=== PATIENT | male | born 1935 | race Caucasian/White ===

== ENCOUNTER → 2019-05-20 14:48 | Outpatient (CLI) | payer MEDICARE, SELFPAY ==
--- NOTE | 2019-05-20 14:51 | CT_ITS ---
STUDY: CT ABDOMEN AND PELVIS WITH AND WITHOUT CONTRAST REASON FOR EXAM: Male, 83 years old. GROSS HEMATURIA 2 WEEKS AGO, STOPPED 1 WEEK AGO. SX/ ULCER SX 1967, APPY. H/O LEUKEMIA RADIATION DOSAGE (If Supplied By Facility): CTDIvol = ( 19.88 ) mGy, DLP = ( 2605.77 ) mGycm TECHNIQUE: Transaxial images were obtained from the dome of the diaphragm to the symphysis pubis without oral contrast. 100 ML ISOVUE 300. was administered. Sagittal and coronal images were reconstructed. Individualized dose optimization techniques were used for this CT. COMPARISON: None. FINDINGS: The visualized lung bases are unremarkable. The visualized portions of the heart are within normal limits. 4 cm round masses of decreased attenuation the posterior segment the right lower lobe which demonstrates peripheral globular enhancement consistent with a hemangioma. Normal gallbladder and extrahepatic biliary system. Normal spleen. Normal pancreas. Normal bilateral adrenal glands. 2 cm solid enhancing mass in the midsection the right kidney worrisome for renal cell carcinoma. No evidence of tumor thrombus within the right renal vein or inferior vena cava. No surrounding lymphadenopathy. Normal left kidney. Normal visualized stomach. Normal small intestine. Normal colon. There is non-visualization of the appendix. Normal abdominal aorta. There is an IVC filter in place. Right external iliac lymphadenopathy measuring 1.3 x 2.3 cm. Tiny amount of free fluid in the pelvis which is abnormal male patient but without obvious etiology. Normal urinary bladder. Normal abdominal wall. Mild dextroscoliosis of the thoracolumbar spine with degenerative disc disease. CT/CT Abd/Pelvis W/WO Contrast IMPRESSION: 1. 2 cm exophytic solid enhancing mass the right kidney worrisome for renal cell carcinoma. 2. 1.3 x 2.3 cm right external iliac lymphadenopathy. Metastatic disease cannot be excluded. 3. Tiny amount of free fluid in the pelvis which is abnormal male patient but without obvious etiology. 4. 4 cm hemangioma the posterior segment right lobe liver. Electronically Signed: Neno Cueva MD at 8:51 EST Tel , Service support ,
[2019-05-20 15:06] LABS: CREATININE FINGERSTICK 0.9 mg/dL (0.70-1.30); EGFR FINGERSTICK > 60.0000 mL/min (>60)
== END ==
PROVIDERS: Family Provider Family Medicine; PCP Family Medicine; Referring Provider Nurse Practitioner Adult Health; Visit Provider Nurse Practitioner Adult Health
DX: R31.0 Gross hematuria (principal)
CPT/HCPCS: 74178; Q9967

== ENCOUNTER 2019-06-14 08:31 | Day surgery (SDC) | payer MEDICARE, SELFPAY ==
[2019-06-10 14:29] VITALS: BP 173/89; PULSE 81; RESP 16; TEMP 37.1; O2SAT 98; BMI 26.7
--- NOTE | 2019-06-10 14:54 | SDCEKG_ITS ---
Test Reason : Blood Pressure : / mmHG Vent. Rate : 085 BPM Atrial Rate : 085 BPM P-R Int : 190 ms QRS Dur : 084 ms QT Int : 378 ms P-R-T Axes : 046 019 044 degrees QTc Int : 449 ms Normal sinus rhythm Normal ECG Confirmed by NADIA SHELBY, ANA ([id number]), photographic editor JOAO HERNDON ([id number]) on 06/13/2019 9:08:13 AM Referred By: Immanuel Panda Confirmed By:ANA ZUNIGA MD
[2019-06-10 15:26] LABS: Hematocrit 39.2 % (40-54); Hemoglobin 12.9 g/dL (13.0-16.5); Mean Corp Hgb Conc 32.9 g/dL (32-36); Mean Corpuscular Volume 94.2 fL (80-94); Platelet Count 292 K/mm3 (150-450); RBC Distribution Width CV 13.7 % (11.6-14.6); RBC Distribution Width SD 47.5 fl (35.1-43.9); Red Blood Count 4.16 M/mm3 (4.6-6.2); White Blood Count 6.7 K/mm3 (4.4-11.0)
[2019-06-10 15:55] LABS: Anion Gap 7 (5-15); BUN 10 mg/dL (7-18); BUN/Creat Ratio 10.1 RATIO (10-20); Calcium,Total 8.9 mg/dL (8.5-10.1); Chloride 103 mmol/L (98-107); Creatinine, Serum 0.99 mg/dL (0.70-1.30); EST Glomerular Filtration Rate 77 mL/min (>60); Est Glom Filt Rate - Afr Amer 93 mL/min (>60); Estimated Creatinine Clearance 57.53 ml/min; Glucose 115 mg/dL (74-106); Potassium 3.7 mmol/L (3.5-5.1); Sodium Level 135 mmol/L (136-145)
[2019-06-14 09:37] VITALS: BP 161/79; PULSE 90; RESP 16; TEMP 37.1; O2SAT 99; BMI 26.3
[2019-06-14] MEDS: Lactated Ringers 1,000 ML 100 ML IV (09:51)
--- NOTE | 2019-06-14 09:58 | DCINST_ITS ---
Discharge Diet: Light diet - advance as tolerated Discharge Activity: Return to Normal Activity Call your doctor if your incision/area has: Continuous Slow Oozing, Sudden Increased Bleeding, Increased Pain/ Swelling, Increased Redness, Foul Smelling Discharge, Swelling at the incision site Instructions: Treating Bladder Cancer: TUR (Transurethral Resection) Allergies/Adverse Reactions: Allergies paroxetine [From Paxil] Allergy (Verified 06/10/19 14:12) Other CARDIAC ARRHYTHMIA Medications to take at Discharge Aspirin E.C. [Ecotrin] 81 mg PO DAILY@0800 06/10/19 Cholecalciferol (Vitamin D3) [Vitamin D3] 25 mcg PO DAILY 06/10/19 Cyanocobalamin (Vitamin B-12) [Cyanocobalamin Injection] 1,000 mcg IJ .Q2MO 06/10/19 Famotidine [Pepcid AC] 20 mg PO BID 06/10/19 Hydrochlorothiazide [Hctz] 12.5 mg PO DAILY 06/10/19 Hydrocortisone [Procto-Med Hc] 30 gm VT BID 06/10/19 Imatinib Mesylate 400 mg PO DAILY 06/10/19 Lorazepam 1 mg PO Q6H PRN PRN 06/10/19 Propranolol HCl [Inderal] 10 mg PO DAILY 06/10/19 Verapamil HCl [Verapamil ER] 240 mg PO DAILY 06/10/19 Ciprofloxacin [Cipro] 500 mg PO BID #6 tab 06/14/19 Hydrocodone/Acetaminophen [[place] 5-325 Tablet] 1 each PO Q4H PRN PRN 5 Days #14 tablet 06/14/19 The following prescriptions were given: Ciprofloxacin [Cipro] 500 mg PO BID #6 tab Transmission Status: Pending to [facility] Hydrocodone/Acetaminophen [[place] 5-325 Tablet] 1 each PO Q4H PRN PRN 5 Days #14 tablet PRN Reason: Pain Score 1-10/10 Transmission Status: Sent to [facility] Primary Care Physician: Alok Branch MD [Primary Care Provider] - Test Results: Test results from this visit will be discussed in further detail at your follow- up appointment, if applicable. Please Follow Up With: Immanuel Panda MD When: in 2 weeks, please call to make an appointment.
[2019-06-14] MEDS: Cefazolin 2 GM in 0.9% Normal Saline 100 ML IV (10:18)
--- NOTE | 2019-06-14 10:25 | BLB_PTH ---
PATIENT: ABHISHEK BAILEY LOC: [facility] [place] U#:[id number] AGE/SX: 83/M ROOM: RE06/14/[address]: Dr. Immanuel Panda MD : [id number] BED: DIS: 06/14/2019 SPEC #: [id number] RECD: 06/14/19 12:07 STATUS: DAYNA ALFRED #: [id number] SHANDA: 06/14/19 10:[address]: Immanuel Panda DEPT: SURGICAL PATHOLOGY RECD BY: Ortiz Brown ENTERED: 06/14/19 13:44 SP TYPE: TURB OTHR DR: Dr. Alok Branch MD Tissues: Urinary bladder, NOS Procedures: Surgery Specimen Level V HEADER OPERATION: Cysto, TUR, bladder tumor, mitomycin C PRE-OP DIAGNOSIS: History bladder cancer TISSUE SUBMITTED: Bladder tumor MICROSCOPIC DIAGNOSIS Urinary bladder tumor, transurethral resection: Papillary urothelial carcinoma. See cancer checklist below. AM:albina 06/17/19 COMMENT BLADDER CANCER (TUR) SUMMARY Procedure: Transurethral resection of bladder (TURBT) Tumor site: Not specified Histologic type: Papillary urothelial carcinoma Histologic grade: 2/3 (WHO high grade) Tumor configuration: Papillary Muscularis propria: Present and free of tumor. Lymphovascular invasion: Not identified Tumor extension: Tumor confined to urothelium. Additional pathologic findings: Mild chronic inflammation. The above summary is in compliance with [employer] [place] Pathology (CAP) Cancer Protocols Checklist and [place] Joint Committee on Cancer (AJCC), Staging Manual, 8th Ed. Case has been reviewed in consultation with Dr. Engle who concurs with the above diagnosis. RAA:SARA MICROSCOPIC DESCRIPTION Slides are reviewed. GROSS DESCRIPTION Received in fixative is one container labeled with the patient's name and designated bladder tumor. The specimen consists of multiple irregular fragments of light almodovar soft tissue that in aggregate measure 1 x 0.3 x 0.1 cm. The specimen is totally submitted in one cassette. / SARA:albina 06/14/19 TC:0 CPT: 88801
--- NOTE | 2019-06-14 10:48 | OP.PCM_ITS ---
Report of Operation Date of Procedure: 06/14/19 Pre-Operative Diagnosis: Bladder tumor 2 cm in the dome of the bladder Post-Operative Diagnosis: Same Surgery/Procedure Performed:: Transurethral resection of a bladder tumor 2 cm in the dome and instillation of mitomycin-C in the bladder Description of Surgical Findings:: 83-year-old male who was seen in the office for hematuria on cystoscopy was found to have a tumor in the dome of the bladder appeared to be papillary noninvasive bladder cancer today working to proceed with resection the tumor about 2 cm in the dome of the bladder. 83-year-old male was taken back to the operating room after smooth induction of anesthesia he was placed in dorsolithotomy position, the penis and testicles were prepped and draped in usual sterile fashion went into the urethra with a 24 Bulgarian noncontinuous flow resectoscope the entire length the urethra was normal the pendulous urethra is normal the prostate was slightly enlarged no significant obstruction inside the bladder the left and right ureteral orifice and trigone was identified this was normal the lateral carson were normal the posterior wall was normal and then up in the dome there was a 2 cm papillary noninvasive looking bladder cancer. I then used a medium loop resectoscope and resected the tumor I then switched over to the button to vaporize the base and vaporized the edges and cauterize extensively after this was done and there was no bleeding I then drained the bladder with a catheter bladder instilled 40 cc of 40 mg of mitomycin-C into the bladder for post resection dose. Patient anesthetic was reversed taken back to PACU good condition he will follow-up in 2 weeks to review the pathology. Type of Anesthesia:: General - Admit VTE Documentation VTE Present on Admission: No
[2019-06-14 10:58] VITALS: BP 138/78; BP 161/79; PULSE 89; RESP 16; TEMP 36.3; O2SAT 95
[2019-06-14 11:10] VITALS: BP 145/79; BP 161/79; PULSE 91; RESP 18; O2SAT 97
[2019-06-14 11:15] VITALS: BP 156/91; BP 161/79; PULSE 92; RESP 18; O2SAT 98
[2019-06-14 11:23] VITALS: BP 161/79; BP 171/88; PULSE 90; RESP 16; TEMP 36.4; O2SAT 98
[2019-06-14 12:39] VITALS: BP 149/87; BP 161/79; PULSE 64; RESP 16; TEMP 36.6; O2SAT 99
== END 2019-06-14 12:43 | disposition home or self-care (01) ==
LOC: SDC 08:37 → AC 08:38
PROVIDERS: Anesthesiology; Family Provider Family Medicine; PCP Family Medicine; Referring Provider Urology; Visit Provider Urology
PROC: 0TBB8ZZ Excision of Bladder, Via Natural or Artificial Opening Endoscopic (ICD-10-PCS; CPT 51720; principal; 2019-06-14 10:15)
DX: C67.9 Malignant neoplasm of bladder, unspecified (principal); N40.0 Benign prostatic hyperplasia without lower urinary tract symptoms; R31.0 Gross hematuria; D18.03 Hemangioma of intra-abdominal structures; I10 Essential (primary) hypertension; E78.5 Hyperlipidemia, unspecified; I48.91 Unspecified atrial fibrillation; C95.91 Leukemia, unspecified, in remission; Z87.891 Personal history of nicotine dependence; Z86.718 Personal history of other venous thrombosis and embolism
CPT/HCPCS: 00912; 51720; 52235; 36415; 80048; 85027; 88307; 93005; J7120; J2405; J3490; J9280

== ENCOUNTER 2019-10-11 10:02 | Inpatient (IN) | payer MEDICARE, SELFPAY ==
[2019-10-11] VITALS (8 sets, daily range): BP systolic 116–185; BP diastolic 50–82; PULSE 93–103; RESP 15–33; TEMP 36.2–37.2; O2SAT 92–98; BMI 27.1; BMI 27.4; BMI 27.5
--- NOTE | 2019-10-11 10:18 | EKG12_ITS ---
Test Reason : ILLNESS Blood Pressure : / mmHG Vent. Rate : 096 BPM Atrial Rate : 096 BPM P-R Int : 184 ms QRS Dur : 088 ms QT Int : 372 ms P-R-T Axes : 033 007 010 degrees QTc Int : 469 ms Normal sinus rhythm Normal ECG Confirmed by JING SHELBY, BRII ([id number]), multimedia editor FLORIAN SHAFFER ([id number]) on 10/15/2019 3:14:04 PM Referred By: MONIKA Confirmed By:ROSANNA CH MD
--- NOTE | 2019-10-11 10:20 | ED.VIS.GEN ---
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 Patient states that he started the medication about 2 weeks ago. He is under the care of Dr. Geronimo. He states that since starting the medication, he is just had some generalized malaise. Over the past 3 days, he describes more shortness of breath. He states that he has some stomach fullness and pain when he takes of breath. He does describe some chills, but does not think he has had fever. The patient did have prior DVT after knee surgery many years ago. He is currently not on anticoagulants. He denies weight gain or increasing edema. He denies any changes in his stools, dark or tarry stools. Prior similar symptoms: No Recent Illness/Hospitalization: No Past Medical History - Allergies and Home Meds Allergies/Adverse Reactions: Allergies paroxetine [From Paxil] Allergy (Verified 10/11/19 10:03) Other CARDIAC ARRHYTHMIA Primary Care Physician: Alok Branch MD [Primary Care Provider] - Prior records reviewed: Yes Past Medical History: - - CML, A. fib, prostate cancer, hypertension, GERD Surgical History: appendectomy Smoking Status: Former smoker Review of Systems General: Reports: Chills, Malaise Eyes: Denies: Visual changes - bilaterally, Diplopia ENT: Denies: Rhinorrhea, Sore throat Cardiovascular: Denies: Chest pain, Palpitations Respiratory: Reports: Dyspnea, Cough Gastrointestinal: Reports: Nausea Genitourinary: Denies: Dysuria, Hematuria, Frequency Musculoskeletal: Denies: Back pain, Extremity Pain Skin: Denies: Rash, Wounds Neurological: Denies: Headache, Weakness, Numbness Physical Exam Vital Signs/Narrative: Vital Signs Temp Pulse Resp BP Pulse Ox 10/11/19 10:03 97.2 F L 103 H 15 185/82 H 95 Inital Vital Signs reviewed: Yes General: Well nourished, Well developed, No Acute Distress Head: Normocephalic, Atraumatic Eyes: Perrl, EOMI ENT: Moist mucous membranes, No rhinorrhea Neck: Supple, Nontender Cardiovascular: Regular rate, Regular rhythm, No murmurs Respiratory: No distress, Chest nontender, Decreased Air Movement Abdomen: Soft, Nontender, Nondistended, Normal bowel sounds Back: Nontender, Normal Inspection Extremities: Nontender, No edema Skin: Normal color, No rash Neurological: Alert, Oriented x3, Cranial nerves II-XII grossly intact, Normal Strength, Normal Sensation Psychological: Normal affect, Normal Mood Diagnostic/Tx/Re-eval Clinical Impression(s) from Imaging Studies Chest CTA 10/11/19 11:34 IMPRESSION: Moderate bilateral pleural effusions with compressive atelectasis versus infiltrates in both lower lobes. Focal area of groundglass appearance in the lingular segment of the left upper lobe as well as in the left lower lobe. No evidence of pulmonary embolism. Electronically Signed: Sherwin Agnieszka, at 12:21 EDT , Service support , Abnormal Lab Results 10/11/19 10/11/19 10/11/19 10:30 11:00 11:00 WBC 6.5 RBC 2.97 L Hgb 9.9 L Hct 28.9 L MCV 97.3 H MCH 33.3 H MCHC 34.3 RDW Std Deviation 46.5 H RDW Coeff of Jessica 13.1 Plt Count 273 MPV 9.2 Immature Gran % (Auto) 0.300 Neut % (Auto) 68.4 Lymph % (Auto) 17.1 L Crawford % (Auto) 13.4 H Eos % (Auto) 0.6 Baso % (Auto) 0.2 Absolute Neuts (auto) 4.5 Absolute Lymphs (auto) 1.11 Nucleated RBC % 0 Sodium 132 L Potassium 3.6 Chloride 101 Carbon Dioxide 25.0 Anion Gap 6 BUN 9 Creatinine 0.76 Estim Creat Clear Calc 55.97 Est GFR (MDRD) Af Amer 125 Est GFR (MDRD) Non-Af 103 BUN/Creatinine Ratio 11.8 Glucose 119 H Calcium 8.4 L Total Bilirubin 1.40 H AST 17 ALT 21 Alkaline Phosphatase 65 Troponin I < 0.015 B-Natriuretic Peptide Total Protein 6.7 Albumin 2.9 L Globulin 3.8 Albumin/Globulin Ratio 0.8 L Lipase 58 L COVID-19 ([facility]) Cancelled Blood Type Antibody Screen 10/11/19 10/11/19 11:00 11:00 WBC RBC Hgb Hct MCV MCH MCHC RDW Std Deviation RDW Coeff of Jessica Plt Count MPV Immature Gran % (Auto) Neut % (Auto) Lymph % (Auto) Crawford % (Auto) Eos % (Auto) Baso % (Auto) Absolute Neuts (auto) Absolute Lymphs (auto) Nucleated RBC % Sodium Potassium Chloride Carbon Dioxide Anion Gap BUN Creatinine Estim Creat Clear Calc Est GFR (MDRD) Af Amer Est GFR (MDRD) Non-Af BUN/Creatinine Ratio Glucose Calcium Total Bilirubin AST ALT Alkaline Phosphatase Troponin I B-Natriuretic Peptide 231.2 H Total Protein Albumin Globulin Albumin/Globulin Ratio Lipase COVID-19 ([facility]) Blood Type A POSITIVE Antibody Screen NEGATIVE - Rhythm Strip Rhythm Strip: Sinus Rhythm Rate: 90 Ectopy: None - EKG Initial EKG Interpretation: Sinus Rhythm, No Acute Injury Pattern Prior: Unchanged - Medical Decision Making Patient presents to the emergency department with increasing dyspnea. In review of his new medication, it can cause pancreatitis, anemia, and volume overload. He has not had fever but does admit to chills. With his history of immunosuppression and respiratory complaints, COVID-19 testing was obtained. Screening labs are relatively unremarkable. Cardiac enzymes were negative. EKG shows sinus rhythm with QTC of 470. His BNP is also elevated. Patient underwent CTA which shows no evidence of pulmonary embolus but does show patchy diffuse infiltrates and large pleural effusions. I have discussed the case with Dr. Persaud, on-call for oncology. He did agree with plan for admission, antibiotic coverage, and diuresis. Patient was also discussed with the hospitalist and will be admitted at this time. Impression 1. Acute dyspnea 2. Pleural effusions 3. Atypical pneumonia 4. Acute volume overload 5. History of CML 6. COVID-19 suspicion ED Disposition - Plan for ED Patient: Referrals: Alok Branch MD [Primary Care Provider] -
[2019-10-11 11:12] LABS: Absolute Lymphocyte Count 1.11 X10^3/uL (0.83-4.51); Absolute Neutrophil Count 4.5 X10^3/uL (2.0-7.7); Basophil# 0.01 X10^3/uL; Basophil% 0.2 % (0-1); Eosinophil# 0.04 X10^3/uL; Eosinophils% 0.6 % (0-5); Hematocrit 28.9 % (40-54); Hemoglobin 9.9 g/dL (13.0-16.5); Lymphocyte # 1.11 X10^3/ul (4.0); Lymphocyte % 17.1 % (19-41); Mean Corp Hgb Conc 34.3 g/dL (32-36); Mean Corpuscular Hgb 33.3 pg (27.0-32.0); Mean Corpuscular Volume 97.3 fL (80-94); Mean Platelet Vol. 9.2 fl (6.2-12.0); Monocyte# 0.87 X10^3/uL; Monocyte% 13.4 % (0-10); NRBC Flagged by Analyzer 0 % (0-5); Neutrophil # 4.46 X10^3/uL (2.7-7.7); Neutrophil % 68.4 % (47-70); Platelet Count 273 K/mm3 (150-450); RBC Distribution Width CV 13.1 % (11.6-14.6); RBC Distribution Width SD 46.5 fl (35.1-43.9); Red Blood Count 2.97 M/mm3 (4.6-6.2); White Blood Count 6.5 K/mm3 (4.4-11.0)
[2019-10-11 11:30] LABS: ALB/GLOB Ratio 0.8 RATIO (0.9-2.4); AST(SGOT) 17 U/L (15-37); Alanine Aminotransfer ALT/SGPT 21 U/L (16-61); Albumin, Serum 2.9 g/dL (3.2-5.0); Alkaline Phosphatase 65 U/L (45-117); Anion Gap 6 (5-15); BUN 9 mg/dL (7-18); BUN/Creat Ratio 11.8 RATIO (10-20); Calcium,Total 8.4 mg/dL (8.5-10.1); Chloride 101 mmol/L (98-107); Creatinine, Serum 0.76 mg/dL (0.70-1.30); EST Glomerular Filtration Rate 103 mL/min (>60); Est Glom Filt Rate - Afr Amer 125 mL/min (>60); Estimated Creatinine Clearance 55.97 ml/min; Globulin 3.8 g/dL (2.2-4.2); Glucose 119 mg/dL (74-106); Lipase 58 U/L (73-393); Potassium 3.6 mmol/L (3.5-5.1); Protein, Total 6.7 g/dL (6.4-8.2); Sodium Level 132 mmol/L (136-145)
--- NOTE | 2019-10-11 11:34 | CT_ITS ---
STUDY: CTA CHEST REASON FOR EXAM: Male, 84 years old. SOB/COUGH /FEVER x 3 to 4 days RADIATION DOSAGE (If Supplied By Facility): CTDIvol = ( 18.24 ) mGy, DLP = ( 547.31 ) mGycm TECHNIQUE: The examination was performed with the intravenous administration of 100ml ISOVUE 370. Post-processing of the angiographic images was performed, with multiplanar reformation and 3D reconstruction. Individualized dose optimization techniques were used for this CT. COMPARISON: None. FINDINGS: Normal enhancement of the main pulmonary artery and right and left pulmonary arteries. Normal enhancement of the bilateral peripheral pulmonary arteries. There is no demonstrated pulmonary embolism. There is atherosclerotic calcification of the aortic arch with tortuosity. There is no demonstrated aortic dissection. There are calcifications of the coronary arteries. There is cardiomegaly. Mild degree of pericardial thickening. There are visualized mediastinal lymph nodes, which are within normal size limits, and with normal morphology. There are calcified right hilar lymph nodes. Normal visualized trachea and bronchi. The lungs are well expanded. Moderate degree of bilateral pleural effusions with bibasilar compressive atelectasis and/or infiltrates. Patchy focal air of the groundglass appearance in the lingular segment of the left upper lobe as well as in the left upper lobe and left lower. Normal chest wall structures. There are degenerative changes of thoracic spine. A filter is seen in the inferior vena cava. CT/CTA Chest W/WO Contrast IMPRESSION: Moderate bilateral pleural effusions with compressive atelectasis versus infiltrates in both lower lobes. Focal area of groundglass appearance in the lingular segment of the left upper lobe as well as in the left lower lobe. No evidence of pulmonary embolism. Electronically Signed: Sherwin Aaron, at 12:21 EDT , Service support ,
[2019-10-11 12:12] LABS: BNP,B-Type NATRIURETIC PEPTIDE 231.2 pg/mL (0-100)
[2019-10-11] MEDS: Furosemide 40 MG/4 ML Vial IV ×2 (13:07→21:39)
[2019-10-11] MEDS: Ceftriaxone 1 GM/50 ML BAG IV (13:07)
--- NOTE | 2019-10-11 13:09 | HP.PCM_ITS ---
Problem List (1) HTN (hypertension) Status: Chronic Qualifiers: Hypertension type: essential hypertension Qualified Code(s): I10 - Essential (primary) hypertension (2) Hx of venous thrombosis and embolism Status: Chronic (3) History of tobacco use Status: Chronic (4) Atrial fibrillation Status: Chronic Qualifiers: Atrial fibrillation type: unspecified Qualified Code(s): I48.91 - Unspecified atrial fibrillation History of Present Illness Date of Admission: 10/11/19 Chief Complaint: Shortness of breath - 3 days The patient is a 84 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 Patient denied any sick contact. He lives alone with his . Denies any fever or chills. Complains of worsening shortness of breath with cough as well as generalized malaise. He denies any orthopnea or PND but admits to lower extremity swelling. In the ED showed temperature 97.2 F, heart rate 103, blood pressure 185/82, patient rate 15, SPO2 is 95% on room air. BC count is 6.5, hemoglobin 9.9, up from 12.9, count is 273, sodium 132, potassium 3.6, chloride 101, bicarbonate 25, BUN 9, creatinine 0.76, magnesium is pending, ferritin is pending, troponin is negative, LFTs are unremarkable except for today bilirubin of 1.40, BNP of is 231.2, CRP pending, procalcitonin is pending. CT of the chest shows moderate bilateral pleural effusion with compressive atelectasis versus infiltrates in both lower lobes. Focal area of groundglass appearance in the lingular segment of the left upper lobe as well as in the left lower lobe. No evidence of PE Past Medical History Past Medical History (Chronic Problems): Chronic Problems Hx of peptic ulcer (Chronic) HTN (hypertension) (Chronic) Hx of venous thrombosis and embolism (Chronic) History of tobacco use (Chronic) Atrial fibrillation (Chronic) Allergies paroxetine [From Paxil] Allergy (Verified 10/11/19 10:03) Other CARDIAC ARRHYTHMIA Home Medications: Ambulatory Orders Medication Instructions Recorded Aspirin E.C. [Ecotrin] 81 mg PO DAILY@0800 06/10/19 Cholecalciferol (Vitamin D3) 25 mcg PO DAILY 06/10/19 [Vitamin D3] Cyanocobalamin (Vitamin B-12) 1,000 mcg IJ .Q2MO 06/10/19 [Cyanocobalamin Injection] Famotidine [Pepcid AC] 20 mg PO BID 06/10/19 Hydrochlorothiazide [Hctz] 12.5 mg PO DAILY 06/10/19 Hydrocortisone [Procto-Med Hc] 30 gm NM BID 06/10/19 Imatinib Mesylate 400 mg PO DAILY 06/10/19 Lorazepam 0.5 mg PO Q6H PRN PRN 06/10/19 Propranolol HCl [Inderal (Beta 10 mg PO DAILY 06/10/19 Chauncey)] Verapamil HCl [Verapamil ER] 240 mg PO DAILY 06/10/19 Ciprofloxacin [Cipro] 500 mg PO BID #6 tab 06/14/19 Nilotinib HCl [Tasigna] 300 mg PO DAILY 10/11/19 Polyethylene Glycol 3350 [Miralax] 17 gm PO QODAY 10/11/19 Surgical History: appendectomy, herniorrhaphy, - - Status post abdominal surgery for peptic ulcer disease, status post bladder tomorrow removal in May 2019 Psychiatric History: No pertinent psych hx Lives: Spouse/ Significant Other Smoking Status: Former smoker Tobacco Use: Non-smoker Alcohol: None Drugs: None - *Family History Maternal History Items: No pertinent history Paternal History Items: Heart Disease Review of Systems Constitutional: Reports: Malaise, Weakness, Fatigue. Denies: Anorexia, Chills, Fever, Weight Change Eyes: Denies: Blurred vision, Cataracts, Conjunctivae Inflammation, Pain, Redness HEENT: Denies: Difficulty Hearing, Difficulty Swallowing, Head Aches, Hearing Changes, Sinus Congestion, Sinus Drainage Cardiovascular: Reports: Chest Tightness, Edema. Denies: Chest Pain, Claudication, Orthopnea, Palpitations, Paroxysmal Noc. Dyspnea Respiratory: Reports: Shortness of Breath, Shortness of breath upon exertion. Denies: Cough, Pleuritic Pain, Shortness of breath at rest, Sputum production Gastrointestinal: Denies: Abdominal Pain, Hematemesis, Hematochezia, Nausea, Vomiting Genitourinary: Denies: Dysuria, Incontinence Musculoskeletal: Denies: Joint Pain, Joint stiffness, Joint swelling, Joint Tenderness Skin: Denies: Rash, Wounds Neurological: Denies: Difficulty swallowing, Focal weakness, Numbness, Tingling Psychiatric: Denies: Anxiety, Depression, Homicidal Ideations, Suicidal Ideations Hematologic/ Lymphatic: Denies: Easy Bruising, Easy Bleeding VTE Information - Inpt Only VTE Present on Admission: No VTE Pharm Prophylaxis ordered?: Yes Patient Problems: Active and Suspected Problems Dyspnea (Acute) - Physical Exam Vitals/I&O's: Vital Signs Temp Pulse Resp BP Pulse Ox 97.8 F 97 20 H 163/79 H 92 10/11/19 12:15 10/11/19 12:15 10/11/19 12:15 10/11/19 12:15 10/11/19 12:15 Oxygen Delivery Method Room Air Weight: 83.461 kg Body Mass Index (BMI) 27.1 Intake and Output for Last 24 Hours 10/09/19 10/10/19 10/11/19 23:59 23:59 23:59 Intake Total 500 / 500 Balance 500 / 500 General: Alert, Oriented x3, Cooperative, No apparent distress HEENT: Atraumatic, PERRLA, EOMI, Normocephalic Oral: Moist Mucosa Neck: Supple Lungs: Clear to auscultation Cardiovascular: Regular rate, Regular Rhythm, Normal S1, Normal S2, No murmurs Abdomen: Bowel Sounds Present, Soft, Non Tender Extremities: No edema Skin: No rashes Musculoskeletal: No Tenderness to Palpation of Joints or Extremities Lymphatic: No Cervical, Supraclavicular, or Inguinal Adenopathy Neurological: Cranial nerves II-XII grossly intact, Neuro grossly intact Psych/Mental Status: Normal Affect, Appropriate Laboratory Results 10/11/19 10:30: COVID-19 ([facility]) Cancelled 10/11/19 11:00: WBC 6.5, RBC 2.97 L, Hgb 9.9 L, Hct 28.9 L, MCV 97.3 H, MCH 33.3 H, MCHC 34.3, RDW Std Deviation 46.5 H, RDW Coeff of Jessica 13.1, Plt Count 273, MPV 9.2, Immature Gran % (Auto) 0.300, Neut % (Auto) 68.4, Lymph % (Auto) 17.1 L , [place] % (Auto) 13.4 H, Eos % (Auto) 0.6, Baso % (Auto) 0.2, Absolute Neuts (auto) 4.5, Absolute Lymphs (auto) 1.11, Nucleated RBC % 0 05/15/20 11:00: Sodium 132 L, Potassium 3.6, Chloride 101, Carbon Dioxide 25.0, Anion Gap 6, BUN 9, Creatinine 0.76, Estim Creat Clear Calc 55.97, Est GFR (MDRD) Af Amer 125, Est GFR (MDRD) Non-Af 103, BUN/Creatinine Ratio 11.8, Glucose 119 H, Calcium 8.4 L, Total Bilirubin 1.40 H, AST 17, ALT 21, Alkaline Phosphatase 65, Troponin I < 0.015, Total Protein 6.7, Albumin 2.9 L, Globulin 3.8, Albumin/Globulin Ratio 0.8 L, Lipase 58 L 10/11/19 11:00: B-Natriuretic Peptide 231.2 H 10/11/19 11:00: Blood Type A POSITIVE, Antibody Screen NEGATIVE Current Medications Doxycycline Hyclate 100 mg/ (Dextrose) 260 mls @ 250 mls/hr IV X1 ONE Stop: 10/11/19 13:36 Assessment/Plan All Active Problems Dyspnea (Acute) 84 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 1. Acute hypoxic respiratory insufficiency secondary to bilateral pleural effusion/possible CHF/possible COVID-19 infection Initial COVID-19 infection is negative Oxygen, wean off for SPO2 more than 94% Not in acute exacerbation; will continue with prn breathing treatments, continue on oxygen Repeat COVID?19 infection in am 2. Bilateral pleural effusion likely secondary to possible CHF likely secondary to Tasigna side effects Patient's BnPep however is 231.2, started on IV Lasix in the ED Will continue on Lasix IV twice daily, strict I & Os Pulmonology consult 3. Elevated D-dimer, 3.37 CTA chest is negative for acute PE Will start on therapeutic Lovenox Will get doppler USG of legs If negative and COVID-19 repeat test is negative, will stop Lovenox 4. Left upper and lower lobe pneumonia, Started on IV ceftriaxone 1g daily, doxycycline 100mg BID Will get urine legionella and streptococcal antigen 5. CML, on Nilotinib Will hold Nilotinib 6. Paroxysmal atrial fibrillation, in NSR On Verapamil 7. Recent h/o bladder tumor, s/p resection 8. DVT PPx- on therapeutic Lovenox 9. Code status - DNR-CCA, no intubation - patient has a living will Inpatient E&M: 63145 Init Hosp L3
--- NOTE | 2019-10-11 14:18 | NURSING ---
ICU 6
--- NOTE | 2019-10-11 16:30 | CON.PCM_ITS ---
Problem List (1) Dyspnea Status: Acute Reason for Consult: suspected covid Consulted by: Dr. Flores History of Present Illness: The patient is a 84 year old M with CML, pt of Dr. Medina. Changed from gleevec to tasigna about 2-3 weeks ago. Some increased fatigue the past few days with dyspnea on exertion. Over past 2 days, worsened dyspnea, cough at night, mild aches in legs. Did not have to sleep upright. No sick contacts, lives with w maida who has been healthy, they have been masking when going out. No fever, no taste/smell change, no n/v/d. No chest pain. Came to ED after calling oncology office. Started on ceftriaxone/doxy, covid neg, admitted to isolation unit. Full ROS performed and neg except as noted above. - Medical History Past Medical History (Chronic Problems): Chronic Problems Hx of peptic ulcer (Chronic) HTN (hypertension) (Chronic) Hx of venous thrombosis and embolism (Chronic) History of tobacco use (Chronic) Atrial fibrillation (Chronic) Allergies/Adverse Reactions: Allergies paroxetine [From Paxil] Allergy (Verified 10/11/19 10:03) Other CARDIAC ARRHYTHMIA Home Medications: Ambulatory Orders Medication Instructions Recorded Aspirin E.C. [Ecotrin] 81 mg PO DAILY@0800 06/10/19 Cholecalciferol (Vitamin D3) 25 mcg PO DAILY 06/10/19 [Vitamin D3] Cyanocobalamin (Vitamin B-12) 1,000 mcg IJ .Q2MO 06/10/19 [Cyanocobalamin Injection] Famotidine [Pepcid AC] 20 mg PO BID 06/10/19 Hydrochlorothiazide [Hctz] 12.5 mg PO DAILY 06/10/19 Hydrocortisone [Procto-Med Hc] 30 gm TX BID 06/10/19 Imatinib Mesylate 400 mg PO DAILY 06/10/19 Lorazepam 0.5 mg PO Q6H PRN PRN 06/10/19 Propranolol HCl [Inderal (Beta 10 mg PO DAILY 06/10/19 Chauncey)] Verapamil HCl [Verapamil ER] 240 mg PO DAILY 06/10/19 Ciprofloxacin [Cipro] 500 mg PO BID #6 tab 06/14/19 Nilotinib HCl [Tasigna] 300 mg PO DAILY 10/11/19 Polyethylene Glycol 3350 [Miralax] 17 gm PO QODAY 10/11/19 - Social History SMOKING STATUS:: Former smoker Vital Signs Temp Pulse Resp BP Pulse Ox 99.0 F 93 20 H 148/65 H 96 10/11/19 16:18 10/11/19 16:18 10/11/19 16:18 10/11/19 16:18 10/11/19 16:18 Oxygen Flow Rate (L/min) 2 Oxygen Delivery Method Room Air Weight: 84.4 kg Body Mass Index (BMI) 27.4 Microbiology Past 72 Hours 10/11/19 10:30 Coronavirus COVID-19 PCR - Final Mucosa - Nasopharyngeal Laboratory Tests Past 24 Hrs 10/11/19 10/11/19 10/11/19 10:30 11:00 11:00 WBC 6.5 RBC 2.97 L Hgb 9.9 L Hct 28.9 L MCV 97.3 H MCH 33.3 H MCHC 34.3 RDW Std Deviation 46.5 H RDW Coeff of Jessica 13.1 Plt Count 273 MPV 9.2 Immature Gran % (Auto) 0.300 Neut % (Auto) 68.4 Lymph % (Auto) 17.1 L [place] % (Auto) 13.4 H Eos % (Auto) 0.6 Baso % (Auto) 0.2 Absolute Neuts (auto) 4.5 Absolute Lymphs (auto) 1.11 Nucleated RBC % 0 D-Dimer Quant (PE/DVT) Sodium 132 L Potassium 3.6 Chloride 101 Carbon Dioxide 25.0 Anion Gap 6 BUN 9 Creatinine 0.76 Estim Creat Clear Calc 55.97 Est GFR (MDRD) Af Amer 125 Est GFR (MDRD) Non-Af 103 BUN/Creatinine Ratio 11.8 Glucose 119 H Calcium 8.4 L Magnesium Ferritin Total Bilirubin 1.40 H AST 17 ALT 21 Alkaline Phosphatase 65 Troponin I < 0.015 C-React Prot Ext Range B-Natriuretic Peptide Total Protein 6.7 Albumin 2.9 L Globulin 3.8 Albumin/Globulin Ratio 0.8 L Lipase 58 L Procalcitonin COVID-19 ([facility]) Cancelled Blood Type Antibody Screen 10/11/19 10/11/19 10/11/19 11:00 11:00 11:00 WBC RBC Hgb Hct MCV MCH MCHC RDW Std Deviation RDW Coeff of Jessica Plt Count MPV Immature Gran % (Auto) Neut % (Auto) Lymph % (Auto) [place] % (Auto) Eos % (Auto) Baso % (Auto) Absolute Neuts (auto) Absolute Lymphs (auto) Nucleated RBC % D-Dimer Quant (PE/DVT) Sodium Potassium Chloride Carbon Dioxide Anion Gap BUN Creatinine Estim Creat Clear Calc Est GFR (MDRD) Af Amer Est GFR (MDRD) Non-Af BUN/Creatinine Ratio Glucose Calcium Magnesium Pending Ferritin Pending Total Bilirubin AST ALT Alkaline Phosphatase Troponin I C-React Prot Ext Range Pending B-Natriuretic Peptide 231.2 H Total Protein Albumin Globulin Albumin/Globulin Ratio Lipase Procalcitonin COVID-19 ([facility]) Blood Type A POSITIVE Antibody Screen NEGATIVE 10/11/19 10/11/19 16:00 16:00 WBC RBC Hgb Hct MCV MCH MCHC RDW Std Deviation RDW Coeff of Jessica Plt Count MPV Immature Gran % (Auto) Neut % (Auto) Lymph % (Auto) [place] % (Auto) Eos % (Auto) Baso % (Auto) Absolute Neuts (auto) Absolute Lymphs (auto) Nucleated RBC % D-Dimer Quant (PE/DVT) Pending Sodium Potassium Chloride Carbon Dioxide Anion Gap BUN Creatinine Estim Creat Clear Calc Est GFR (MDRD) Af Amer Est GFR (MDRD) Non-Af BUN/Creatinine Ratio Glucose Calcium Magnesium Ferritin Total Bilirubin AST ALT Alkaline Phosphatase Troponin I C-React Prot Ext Range B-Natriuretic Peptide Total Protein Albumin Globulin Albumin/Globulin Ratio Lipase Procalcitonin Pending COVID-19 ([facility]) Blood Type Antibody Screen - Other Studies Radiology: [] Other Studies: [] reviewed Route of nutrition/ use of supplements: [] Nutritional Intake: [] IV Site: [] May Catheter: [] - Physical Exam General: Alert, Oriented x3, Cooperative, No apparent distress HEENT: Atraumatic, PERRLA, EOMI Neck: Supple, No Nodes Lungs: Diminished, Using Accessory Muscles Cardiovascular: Tachycardic Abdomen: Soft, Non Tender, Non-Distended Extremities: No edema Skin: No rashes IV Site: Peripheral, without redness Musculoskeletal: No Tenderness to Palpation of Joints or Extremities Neurological: Cranial nerves II-XII grossly intact - Assessment/Plan Antibiotics: [] Assessment/Plan: [] CML on Tasigna with new dyspnea, cough, fatigue. CTA with no PE, some effusions and groundglass changes. PCT, d-dimer, ferritin, CRP pending. Having increased symptoms about 2-3 days prior to presentation. On doxy/ceftriaxone. Would repeat covid tomorrow, if neg, ok to d/c isolation. Will follow, thank you.
[2019-10-11 16:59] LABS: D-Dimer Quantitative (DVT/PE) 3.37 FEU/ug/m (0.27-0.49)
[2019-10-11 17:04] LABS: Procalcitonin 0.09 ng/mL (0.00-0.09)
[2019-10-11] MEDS: Enoxaparin 80 MG/0.8 ML Syringe SC (17:57)
[2019-10-11 18:05] LABS: Ferritin 97 ng/mL (26-388); Magnesium 2.2 mg/dL (1.6-2.6)
[2019-10-11] MEDS: Famotidine 20 MG Tablet PO (21:39)
[2019-10-11] MEDS: Doxycycline 100 MG CAPSULE PO (21:39)
[2019-10-12] VITALS (7 sets, daily range): BP systolic 130–145; BP diastolic 63–73; PULSE 75–94; RESP 16–20; TEMP 36.6–37.2; O2SAT 93–97
[2019-10-12 04:21] LABS: Absolute Lymphocyte Count 1.29 X10^3/uL (0.83-4.51); Absolute Neutrophil Count 3.4 X10^3/uL (2.0-7.7); Basophil# 0.01 X10^3/uL; Basophil% 0.2 % (0-1); Eosinophil# 0.03 X10^3/uL; Eosinophils% 0.5 % (0-5); Hematocrit 28.7 % (40-54); Hemoglobin 9.7 g/dL (13.0-16.5); Lymphocyte # 1.29 X10^3/ul (4.0); Lymphocyte % 22.8 % (19-41); Mean Corp Hgb Conc 33.8 g/dL (32-36); Mean Corpuscular Hgb 32.9 pg (27.0-32.0); Mean Corpuscular Volume 97.3 fL (80-94); Mean Platelet Vol. 8.3 fl (6.2-12.0); Monocyte# 0.88 X10^3/uL; Monocyte% 15.5 % (0-10); NRBC Flagged by Analyzer 0 % (0-5); Neutrophil # 3.44 X10^3/uL (2.7-7.7); Neutrophil % 60.6 % (47-70); Platelet Count 271 K/mm3 (150-450); RBC Distribution Width CV 12.7 % (11.6-14.6); RBC Distribution Width SD 44.7 fl (35.1-43.9); Red Blood Count 2.95 M/mm3 (4.6-6.2); White Blood Count 5.7 K/mm3 (4.4-11.0)
[2019-10-12 04:38] LABS: ALB/GLOB Ratio 0.8 RATIO (0.9-2.4); AST(SGOT) 14 U/L (15-37); Alanine Aminotransfer ALT/SGPT 19 U/L (16-61); Albumin, Serum 2.6 g/dL (3.2-5.0); Alkaline Phosphatase 57 U/L (45-117); Anion Gap 7 (5-15); BUN 11 mg/dL (7-18); BUN/Creat Ratio 11.7 RATIO (10-20); Calcium,Total 8.1 mg/dL (8.5-10.1); Chloride 98 mmol/L (98-107); Creatinine, Serum 0.94 mg/dL (0.70-1.30); EST Glomerular Filtration Rate 81 mL/min (>60); Est Glom Filt Rate - Afr Amer 98 mL/min (>60); Estimated Creatinine Clearance 59.54 ml/min; Globulin 3.4 g/dL (2.2-4.2); Glucose 106 mg/dL (74-106); Magnesium 1.9 mg/dL (1.6-2.6); Potassium 3.3 mmol/L (3.5-5.1); Sodium Level 135 mmol/L (136-145)
--- NOTE | 2019-10-12 05:55 | ECHOD_ITS ---
Reason For Study: DYSPNEA Procedure This was a 2D Doppler, Color Flow transthoracic echocardiogram. The study was technically difficult. Exam performed portable in ICU/CCU. The exam was abbreviated due to the COVID 19 protocol. Left Ventricle Normal left ventricle. Normal size and thickness. Right Ventricle Normal right ventricle. Normal systolic function. Atria The left atrium is mildly enlarged. Mitral Valve Mild-Moderate (1-2+) mitral valve insufficiency. Tricuspid Valve Mild tricuspid valve insufficiency. Pulmonary artery systolic pressure is 37 mmHg. Mild pulmonary hypertension. Aortic Valve Aortic sclerosis, no stenosis. Great Vessels Normal inferior vena cava. Pericardium/Pleural Small pericardial effusion. presence of left pleural effusion. MMode/2D Measurements & Calculations LVIDd: 4.2 cm IVSd: 1.0 cm Ao root diam: 3.5 cm LVIDs: 2.8 cm LVPWd: 0.91 cm RVDd: 4.3 cm FS: 33.6 % LAV(MOD-bp): 76.8 ml LA A4 area: 30.4 cm2 LA dimension(2D): 5.1 cm LAV(MOD-bp) Indexed: 38.7 ml/m2 LAV(MOD-sp2): 41.5 ml LAV(MOD-sp4): 106.3 ml RA A4 area: 22.1 cm2 Time Measurements MV dec time: 0.16 sec Doppler Measurements & Calculations MV E max bulmaro: 101.2 cm/sec Lat Peak E' [place]: 9.3 cm/sec Med Peak E' [place]: 9.0 cm/sec MV A max [place]: 53.3 cm/sec E/E' lat: 10.9 E/E' med: 11.3 MV E/A: 1.9 Ao V2 max: 133.4 cm/sec LV V1 max: 100.6 cm/sec PA V2 max: 88.6 cm/sec Ao max P.2 mmHg LV V1 max P.1 mmHg TR max [place]: 291.0 cm/sec TR max P.9 mmHg Interpretation Summary Normal left ventricle. The left atrium is mildly enlarged. Mild-Moderate (1-2+) mitral valve insufficiency. Mild tricuspid valve insufficiency. Mild pulmonary hypertension. Small pericardial effusion. Presence of left pleural effusion Ordering Physician: Promise Flores Referring Physician: CROW MONTERO Performed By: Larissa Corea, JOHANNA, RVT
--- NOTE | 2019-10-12 08:24 | CON.PCM_ITS ---
Problem List (1) Pleural effusion Status: Acute (2) Dyspnea Status: Acute Qualifiers: Dyspnea type: dyspnea on exertion Qualified Code(s): R06.00 - Dyspnea, unspecified (3) Hx of peptic ulcer Status: Chronic (4) HTN (hypertension) Status: Chronic Qualifiers: Hypertension type: essential hypertension Qualified Code(s): I10 - Essential (primary) hypertension (5) Hx of venous thrombosis and embolism Status: Chronic (6) History of tobacco use Status: Chronic (7) Atrial fibrillation Status: Chronic Qualifiers: Atrial fibrillation type: unspecified Qualified Code(s): I48.91 - Unspecified atrial fibrillation Reason for Consult Date of Consultation: 10/12/19 Reason for Consultation: Pleural effusions History of Present Illness: The patient is an 84 year old M, with past medical history listed below, who presented to [facility] on 10/11/2019 secondary to progressive shortness of breath and generalized malaise. Patient has a history of CML and was started on Tasigna about [address] Medina. Patient states he started to feel malaise initially, but over the next 2-week started to have more more shortness of breath. Patient had reported some stomach fullness and some pleu ritic type chest pains. Patient reported some chills, but denied any fever. Patient is not currently on anticoagulants, but reportedly did have a provoked DVT many years ago. Patient is unclear if he has had any weight gain or increase in lower extremity Nakia. Patient is not reporting any change in his stools such as melena or hematochezia. Patient reportedly was on Gleevec previously and tolerated this better, but this was discontinued following a bladder intervention. In the ER, patient was noted to be slightly hypoxic requiring minimal nasal cannula oxygen. COVID-19 was sent secondary to immunosuppression and respiratory complaints. EKG did show some prolongation of QTC. Patient underwent a CTA that showed no pulmonary embolism, but diffuse patchy groundglass opacities and bilateral effusions. Patient was placed on empiric antibiotics, diuresis and admitted to the floor for further evaluation. Since being admitted to the floor, patient feels subjectively improved compared to previous. Patient has required 2 L nasal cannula to maintain saturations, but otherwise has been hemodynamically stable without fever. Patient reports significant improvement in his dyspnea and feels 100% better but has not been ambulating. Patient denies any previous history of pleural effusions. Patient is unaware of any cardiac history. Patient did smoke in the past, but denies any formal diagnosis of COPD or other obstructive lung disease. Patient denies any exposure to asbestos or TB. COVID precautions were continued overnight and patient has a repeat test ordered for this morning. Patient is not reporting any sick contacts and states that he has been at home with his for the last 2 months. Patient buys his groceries online and has them delivered. Review of systems otherwise negative from a constitutional, HEENT, respiratory, cardiovascular, GI, genitourinary, musculoskeletal, skin, neurologic, psychiatric and hematologic system unless stated above. Past Medical History Past Medical History (Chronic Problems): Chronic Problems Hx of peptic ulcer (Chronic) HTN (hypertension) (Chronic) Hx of venous thrombosis and embolism (Chronic) History of tobacco use (Chronic) Atrial fibrillation (Chronic) Allergies paroxetine [From Paxil] Allergy (Verified 10/11/19 10:03) Other CARDIAC ARRHYTHMIA Home Medications: Ambulatory Orders Medication Instructions Recorded Aspirin E.C. [Ecotrin] 81 mg PO DAILY@0800 06/10/19 Cholecalciferol (Vitamin D3) 25 mcg PO DAILY 06/10/19 [Vitamin D3] Cyanocobalamin (Vitamin B-12) 1,000 mcg IJ .Q2MO 06/10/19 [Cyanocobalamin Injection] Famotidine [Pepcid AC] 20 mg PO BID 06/10/19 Hydrochlorothiazide [Hctz] 12.5 mg PO DAILY 06/10/19 Hydrocortisone [Procto-Med Hc] 30 gm CA BID 06/10/19 Imatinib Mesylate 400 mg PO DAILY 06/10/19 Lorazepam 0.5 mg PO Q6H PRN PRN 06/10/19 Propranolol HCl [Inderal (Beta 10 mg PO DAILY 06/10/19 Chauncey)] Verapamil HCl [Verapamil ER] 240 mg PO DAILY 06/10/19 Ciprofloxacin [Cipro] 500 mg PO BID #6 tab 06/14/19 Nilotinib HCl [Tasigna] 300 mg PO DAILY 10/11/19 Polyethylene Glycol 3350 [Miralax] 17 gm PO QODAY 10/11/19 Surgical History: appendectomy, herniorrhaphy, - - Status post abdominal surgery for peptic ulcer disease, status post bladder tomorrow removal in May 2019 Psychiatric History: No pertinent psych hx Lives: Spouse/ Significant Other Smoking Status: Former smoker Tobacco Use: Non-smoker Alcohol: None Drugs: None - *Family History Maternal History Items: No pertinent history Paternal History Items: Heart Disease Review of Systems Comment: See HPI Patient Problems: Active and Suspected Problems Dyspnea (Acute) Pleural effusion (Acute) Objective: CT of the chest was personally reviewed. Patient does have a 9 mm right upper lobe nodule appreciated. Patient also has bilateral pleural effusions with increased groundglass opacities on the left. Patient does have significant motion artifact noted. Patient does not have any previous echocardiogram or pulmonary function test available for review. - Physical Exam Vitals/I&O's: Vital Signs Temp Pulse Resp BP Pulse Ox 36.9 C 94 20 H 135/63 H 96 10/12/19 03:31 10/12/19 03:31 10/12/19 03:31 10/12/19 03:31 10/12/19 08:02 Oxygen Flow Rate (L/min) 2 Oxygen Delivery Method Nasal Cannula Weight: 82.6 kg Body Mass Index (BMI) 27.4 Intake and Output for Last 24 Hours 10/10/19 10/11/19 10/12/19 23:59 23:59 23:59 Intake Total 790 / 790 240 / 240 Output Total 1800 / 1800 450 / 450 Balance -1010 / -1010 -210 / -210 General: Alert, Oriented x3, Cooperative, No apparent distress, - - No conversational dyspnea. Speaking in full sentences. HEENT: Atraumatic, PERRLA, EOMI, Normocephalic, - - No scleral icterus or injection noted Oral: Moist Mucosa, No Gingival or Mucosal Lesions/ Ulcerations Neck: Supple, No Nodes, Trachea Midline, JVD, Right Lungs: No rhonchi, No wheeze, Diminished - Bilateral bases, Rales - Right base, - - Dullness to percussion at both bases Cardiovascular: Normal S1, Normal S2, Irregular Rate, Murmur - 2 out of 6 systolic ejection murmur noted at the right sternal border, No rub noted, No Gallop Abdomen: Bowel Sounds Present, Soft, Non Tender, Non-Distended Extremities: No clubbing, No cyanosis, Edema - 1+ lower extremities Skin: No rashes, No breakdown Musculoskeletal: No Tenderness to Palpation of Joints or Extremities Lymphatic: No Cervical, Supraclavicular, or Inguinal Adenopathy Neurological: Cranial nerves II-XII grossly intact, Neuro grossly intact, Motor Exam 5/5 strength throughout Psych/Mental Status: Alert and oriented to time, place, person, mood and affect Microbiology Past 72 Hours 10/11/19 18:00 Urine, Random Streptococcus pneumoniae Antigen (M - Final 10/11/19 18:00 Urine, Random Legionella Antigen - Final 10/11/19 10:30 Mucosa - Nasopharyngeal Coronavirus COVID-19 PCR - Final Laboratory Results 10/11/19 10:30: COVID-19 ([facility]) Cancelled 10/11/19 11:00: WBC 6.5, RBC 2.97 L, Hgb 9.9 L, Hct 28.9 L, MCV 97.3 H, MCH 33.3 H, MCHC 34.3, RDW Std Deviation 46.5 H, RDW Coeff of Jessica 13.1, Plt Count 273, MPV 9.2, Immature Gran % (Auto) 0.300, Neut % (Auto) 68.4, Lymph % (Auto) 17.1 L , Rosebud % (Auto) 13.4 H, Eos % (Auto) 0.6, Baso % (Auto) 0.2, Absolute Neuts (auto) 4.5, Absolute Lymphs (auto) 1.11, Nucleated RBC % 0 10/11/19 11:00: Sodium 132 L, Potassium 3.6, Chloride 101, Carbon Dioxide 25.0, Anion Gap 6, BUN 9, Creatinine 0.76, Estim Creat Clear Calc 55.97, Est GFR (MDRD) Af Amer 125, Est GFR (MDRD) Non-Af 103, BUN/Creatinine Ratio 11.8, Glucose 119 H, Calcium 8.4 L, Total Bilirubin 1.40 H, AST 17, ALT 21, Alkaline Phosphatase 65, Troponin I < 0.015, Total Protein 6.7, Albumin 2.9 L, Globulin 3.8, Albumin/Globulin Ratio 0.8 L, Lipase 58 L 10/11/19 11:00: B-Natriuretic Peptide 231.2 H 10/11/19 11:00: Blood Type A POSITIVE, Antibody Screen NEGATIVE 10/11/19 11:00: Magnesium 2.2, Ferritin 97, C-React Prot Ext Range 82.20 H 10/11/19 16:00: D-Dimer Quant (PE/DVT) 3.37 H* 10/11/19 16:00: Procalcitonin 0.09 10/12/19 04:05: WBC 5.7, RBC 2.95 L, Hgb 9.7 L, Hct 28.7 L, MCV 97.3 H, MCH 32.9 H, MCHC 33.8, RDW Std Deviation 44.7 H, RDW Coeff of Jessica 12.7, Plt Count 271, MPV 8.3, Immature Gran % (Auto) 0.400, Neut % (Auto) 60.6, Lymph % (Auto) 22.8, Rosebud % (Auto) 15.5 H, Eos % (Auto) 0.5, Baso % (Auto) 0.2, Absolute Neuts (auto) 3.4, Absolute Lymphs (auto) 1.29, Nucleated RBC % 0 10/12/19 04:05: Sodium 135 L, Potassium 3.3 L, Chloride 98, Carbon Dioxide 30.0, Anion Gap 7, BUN 11, Creatinine 0.94, Estim Creat Clear Calc 59.54, Est GFR (MDRD) Af Amer 98, Est GFR (MDRD) Non-Af 81, BUN/Creatinine Ratio 11.7, Glucose 106, Calcium 8.1 L, Magnesium 1.9, Total Bilirubin 0.90, AST 14 L, ALT 19, Alkaline Phosphatase 57, Total Protein 6.0 L, Albumin 2.6 L, Globulin 3.4, Albumin/Globulin Ratio 0.8 L 10/12/19 07:18: COVID-19 ([facility]) Pending Current Medications Acetaminophen (Tylenol) 650 mg PO Q6H PRN PRN PRN Reason: Pain Score 1-10/Temp > 100.7 F Aspirin (Ecotrin) 81 mg PO DAILY [facility] Doxycycline Monohydrate (Doxycycline) 100 mg PO BID [facility] Last Admin: 10/11/19 21:39 Dose: 100 mg Documented by: Famotidine (Pepcid) 20 mg PO BID [facility] Last Admin: 10/11/19 21:39 Dose: 20 mg Documented by: Furosemide (Lasix) 40 mg IV BID [facility] Last Admin: 10/11/19 21:39 Dose: 40 mg Documented by: Hydrocortisone (Hytone) 1 applic RECTAL BID PRN PRN Reason: HEMORRHOIDS Sodium Chloride () 250 mls @ 15 mls/hr IV .[id number] PRN PRN Reason: Saline Flush Sodium Chloride () 250 mls @ 15 mls/hr IV .[id number] PRN PRN Reason: Additional IVPB Infusion Ceftriaxone Sodium (Rocephin) 1 gm in 50 mls @ 100 mls/hr IV Q24 HE Magnesium Sulfate 2 gm/ Sodium (Chloride) 104 mls @ 52 mls/hr IV X1 ONE Stop: 10/12/19 09:59 Magnesium Hydroxide (Milk Of Magnesia) 30 ml PO DAILY PRN PRN PRN Reason: Constipation Polyethylene Glycol (Miralax) 17 gm PO QODAY HE Propranolol HCl (Inderal) 10 mg PO DAILY HE Sodium Chloride () 10 - 40 ml IV UD PRN PRN Reason: SALINE FLUSH Verapamil HCl (Calan Sr) 240 mg PO DAILY HE Clinical Impression(s) from Imaging Studies Chest CTA 10/11/19 11:34 IMPRESSION: Moderate bilateral pleural effusions with compressive atelectasis versus infiltrates in both lower lobes. Focal area of groundglass appearance in the lingular segment of the left upper lobe as well as in the left lower lobe. No evidence of pulmonary embolism. Electronically Signed: Sherwin Agnieszka, at 12:21 EDT , Service support , Assessment/Plan All Active Problems Dyspnea (Acute) Pleural effusion (Acute) RECOMMENDATIONS: 1. Agree with diuresis 2. Hold Tasigna 3. Likely discontinue COVID precautions once second COVID is resulted 4. Possible thoracentesis if unresponsive to diuresis on Monday 5. Potassium supplementation as indicated 6. Walking oximetry prior to discharge 7. Repeat CT scan once euvolemic IMPRESSIONS: 1. Acute hypoxic respiratory insufficiency secondary to fluid overload/bilateral pleural effusion Patient with new onset bilateral pleural effusions. This may be secondary to his chemotherapy versus acute on chronic CHF. Echocardiogram has been ordered. Low clinical suspicion for infectious etiology/parapneumonic effusion given lack of fever and leukocytosis. Patient is not reporting any productive cough. Likely discontinue antibiotics after culture negative. Okay to discontinue doxycycline as ceftriaxone would be sufficient coverage in my opinion. 2. New right upper lobe nodule in the setting of possible renal mass No imaging available for review from [facility]. My review of the CT scan does show a 9 mm right upper lobe nodule that has not been described previously. Patient's documentation did report a possible renal mass and patient is recently had a biopsy in the bladder. This may represent a metastatic lesion. However, this may also be secondary to compression artifact associated with bilateral pleural effusions. Repeat CT scan once euvolemic would be appropriate. 3. Paroxysmal A. 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 Okay to continue with baseline medications from my perspective. Would hold on any systemic anticoagulation until it is clear that he will not require any interventions. Inpatient E&M: 11396 Init Hosp L3
[2019-10-12] MEDS: Propranolol 10 MG Tablet PO (08:35)
[2019-10-12] MEDS: Verapamil SR 240 MG Tablet PO (08:35)
[2019-10-12] MEDS: Famotidine 20 MG Tablet PO ×2 (08:35→20:03)
[2019-10-12] MEDS: Doxycycline 100 MG CAPSULE PO (08:35)
[2019-10-12] MEDS: Furosemide 40 MG/4 ML Vial IV ×2 (08:35→19:57)
[2019-10-12] MEDS: 0.9% Saline Lock 10 ML Syringe IV ×2 (08:36→20:03)
[2019-10-12] MEDS: Aspirin E.C. 81 MG Tablet PO (08:36)
[2019-10-12] MEDS: Ceftriaxone 1 GM/50 ML BAG IV (10:58)
--- NOTE | 2019-10-12 11:20 | CASEMGMT ---
RN CM called patient in room for initial transition planning/care coordination assessment. RN ELENA introduced self and role at [facility]. Patient alert and oriented. Patient willing to participate in assessment and is able to answer all questions appropriately. Care providers, pharmacy, and demographics verified. Patient wishes to discharge home, denies need for home health at this time. Patient states he has no further needs or concerns at this time. CM to follow for discharge planning needs that may arise. PCP: Sarina Specialists: [facility]erred [facility]acy: [facility] Insurance: [place] MCR Prescription Benefit: yes Living Will/HPOA: yes, Rosmery Patel LNOK: Living Arrangements: Patient lives with in a split level home. Patient states that he is independent at home and able to ambulate stairs. Transportation: self, DME/HHC: Patient denies any DME or previous HHC. Disposition Plan: Patient to discharge home with family support and follow-up plans in place. Rebekah PATHAK, RN, CM
--- NOTE | 2019-10-12 12:29 | NURSING ---
called report to [facility]. 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 attempted to call but no answer
--- NOTE | 2019-10-12 14:29 | PN_ITS ---
Patient Problems: Active and Suspected Problems Dyspnea (Acute) Pleural effusion (Acute) Reason for Visit: Follow-up on bilateral infiltrates/Acute CHF Subjective: Patient was seen and examined. He feels much improved. No fevers or worsening respiratory symptoms. Repeat COVID-19 test is negative. Objective: Physical exam: General: Alert, Oriented x3, Cooperative, No apparent distress HEENT: Atraumatic, PERRLA, EOMI, Normocephalic Oral: Moist Mucosa Neck: Supple Lungs: Clear to auscultation Cardiovascular: Regular rate, Regular Rhythm, Normal S1, Normal S2, No murmurs Abdomen: Bowel Sounds Present, Soft, Non Tender Extremities: No edema Skin: No rashes Musculoskeletal: No Tenderness to Palpation of Joints or Extremities Lymphatic: No Cervical, Supraclavicular, or Inguinal Adenopathy Neurological: Cranial nerves II-XII grossly intact, Neuro grossly intact Psych/Mental Status: Normal Affect, Appropriate Vitals/I&O's: Vital Signs Temp Pulse Resp BP Pulse Ox 97.9 F 82 16 130/70 H 96 10/12/19 13:31 10/12/19 13:31 10/12/19 13:31 10/12/19 13:31 10/12/19 13:31 Oxygen Flow Rate (L/min) 2 Oxygen Delivery Method Room Air Weight: 82.6 kg Body Mass Index (BMI) 27.4 Intake and Output for Last 24 Hours 10/10/19 10/11/19 10/12/19 23:59 23:59 23:59 Intake Total 790 / 790 844 / 844 Output Total 1800 / 1800 1350 / 1350 Balance -1010 / -1010 -506 / -506 Microbiology Past 72 Hours 10/12/19 07:18 Mucosa - Nasopharyngeal Coronavirus COVID-19 PCR - Final 10/11/19 18:00 Urine, Random Streptococcus pneumoniae Antigen (M - Final 10/11/19 18:00 Urine, Random Legionella Antigen - Final 10/11/19 10:30 Mucosa - Nasopharyngeal Coronavirus COVID-19 PCR - Final Laboratory Results 10/11/19 11:00: Magnesium 2.2, Ferritin 97, C-React Prot Ext Range 82.20 H 10/11/19 16:00: D-Dimer Quant (PE/DVT) 3.37 H* 10/11/19 16:00: Procalcitonin 0.09 10/12/19 04:05: WBC 5.7, RBC 2.95 L, Hgb 9.7 L, Hct 28.7 L, MCV 97.3 H, MCH 32.9 H, MCHC 33.8, RDW Std Deviation 44.7 H, RDW Coeff of Jessica 12.7, Plt Count 271, MPV 8.3, Immature Gran % (Auto) 0.400, Neut % (Auto) 60.6, Lymph % (Auto) 22.8, Pratt % (Auto) 15.5 H, Eos % (Auto) 0.5, Baso % (Auto) 0.2, Absolute Neuts (auto) 3.4, Absolute Lymphs (auto) 1.29, Nucleated RBC % 0 10/12/19 04:05: Sodium 135 L, Potassium 3.3 L, Chloride 98, Carbon Dioxide 30.0, Anion Gap 7, BUN 11, Creatinine 0.94, Estim Creat Clear Calc 59.54, Est GFR (MDRD) Af Amer 98, Est GFR (MDRD) Non-Af 81, BUN/Creatinine Ratio 11.7, Glucose 106, Calcium 8.1 L, Magnesium 1.9, Total Bilirubin 0.90, AST 14 L, ALT 19, Alkaline Phosphatase 57, Total Protein 6.0 L, Albumin 2.6 L, Globulin 3.4, Albumin/Globulin Ratio 0.8 L 10/12/19 07:18: COVID-19 ([facility]) Cancelled Current Medications Acetaminophen (Tylenol) 650 mg PO Q6H PRN PRN PRN Reason: Pain Score 1-10/Temp > 100.7 F Aspirin (Ecotrin) 81 mg PO DAILY [facility] Last Admin: 10/12/19 08:36 Dose: 81 mg Documented by: Famotidine (Pepcid) 20 mg PO BID [facility] Last Admin: 10/12/19 08:35 Dose: 20 mg Documented by: Furosemide (Lasix) 40 mg IV BID [facility] Last Admin: 10/12/19 08:35 Dose: 40 mg Documented by: Hydrocortisone (Hytone) 1 applic RECTAL BID PRN PRN Reason: HEMORRHOIDS Sodium Chloride () 250 mls @ 15 mls/hr IV .[id number] PRN PRN Reason: Saline Flush Sodium Chloride () 250 mls @ 15 mls/hr IV .[id number] PRN PRN Reason: Additional IVPB Infusion Ceftriaxone Sodium (Rocephin) 1 gm in 50 mls @ 100 mls/hr IV Q24 [facility] Last Infusion: 10/12/19 11:35 Dose: Infused Documented by: Magnesium Hydroxide (Milk Of Magnesia) 30 ml PO DAILY PRN PRN PRN Reason: Constipation Polyethylene Glycol (Miralax) 17 gm PO QODAY HE Propranolol HCl (Inderal) 10 mg PO DAILY [facility] Last Admin: 10/12/19 08:35 Dose: 10 mg Documented by: Sodium Chloride () 10 - 40 ml IV UD PRN PRN Reason: SALINE FLUSH Last Admin: 10/12/19 08:36 Dose: 10 ml Documented by: Verapamil HCl (Calan Sr) 240 mg PO DAILY [facility] Last Admin: 10/12/19 08:35 Dose: 240 mg Documented by: STROKE Vital Signs/Narrative: Vital Signs Temp Pulse Resp BP Pulse Ox 10/12/19 13:31 97.9 F 82 16 130/70 H 96 10/12/19 12:19 98.2 F 75 16 134/67 H 95 Medical Necessity - Tobacco Use Smoking Status: Former smoker Tobacco Use: Non-smoker Assessment/Plan All Active Problems Dyspnea (Acute) Pleural effusion (Acute) 84 year old M with PMHx of CML, recently started on Tasigna 2.5 weeks who comes in with progressive SOB at rest and on exertion with bilateral lower extremity s welling. 1. Acute hypoxic respiratory insufficiency secondary to bilateral pleural effusion/possible CHF/possible COVID-19 infection, resolved Initial COVID-19 infection is negative. Repeat COVID?19 test is also negative Off Oxygen, will continue with prn breathing treatments, continue on oxygen 2. Bilateral pleural effusion likely secondary to possible CHF likely secondary to Tasigna side effects Patient's BNPep was 231.2, continue on Lasix IV twice daily, strict I & Os Pulmonology consulted 3. Elevated D-dimer, 3.37, CTA chest is negative for acute PE On therapeutic Lovenox, will get doppler USG of legs on Monday If negative, will stop Lovenox 4. Left upper and lower lobe pneumonia, On IV ceftriaxone 1g daily, doxycycline 100mg BID Blood cultures are pending, urine legionella and streptococcal antigen negative 5. CML, on Nilotinib Nilotinib on hold 6. Paroxysmal atrial fibrillation, in NSR, on Verapamil 7. Recent h/o bladder tumor, s/p resection 8. DVT PPx- on therapeutic Lovenox 9. Code status - DNR-CCA, no intubation Inpatient E&M: 90479 Subs Hosp L2
[2019-10-13 02:24] VITALS: BP 134/73; PULSE 96; RESP 16; TEMP 36.7; O2SAT 92
[2019-10-13 06:43] LABS: ALB/GLOB Ratio 0.7 RATIO (0.9-2.4); AST(SGOT) 18 U/L (15-37); Alanine Aminotransfer ALT/SGPT 20 U/L (16-61); Albumin, Serum 2.6 g/dL (3.2-5.0); Alkaline Phosphatase 58 U/L (45-117); Anion Gap 10 (5-15); BUN 13 mg/dL (7-18); BUN/Creat Ratio 13.8 RATIO (10-20); Calcium,Total 8.4 mg/dL (8.5-10.1); Chloride 99 mmol/L (98-107); Creatinine, Serum 0.94 mg/dL (0.70-1.30); EST Glomerular Filtration Rate 81 mL/min (>60); Est Glom Filt Rate - Afr Amer 98 mL/min (>60); Estimated Creatinine Clearance 59.54 ml/min; Globulin 3.7 g/dL (2.2-4.2); Glucose 94 mg/dL (74-106); Potassium 3.4 mmol/L (3.5-5.1); Protein, Total 6.3 g/dL (6.4-8.2); Sodium Level 136 mmol/L (136-145)
[2019-10-13 06:50] VITALS: O2SAT 93
[2019-10-13 07:05] VITALS: O2SAT 94
--- NOTE | 2019-10-13 07:05 | PN_ITS ---
Patient Problems: Active and Suspected Problems Dyspnea (Acute) Pleural effusion (Acute) Subjective: Patient did well overnight. Patient continues to report subjective improvement in overall condition. Patient is denying any chest pain, abdominal pain, nausea or vomiting. Patient has been weaned to room air and tolerating well. No fevers have been reported. Patient is not reporting any productive cough. - Physical Exam Vitals/I&O's: Vital Signs Temp Pulse Resp BP Pulse Ox 36.7 C 96 16 134/73 H 92 10/13/19 02:24 10/13/19 02:24 10/13/19 02:24 10/13/19 02:24 10/13/19 02:24 Oxygen Flow Rate (L/min) 2 Oxygen Delivery Method Room Air Weight: 82.6 kg Body Mass Index (BMI) 27.4 Intake and Output for Last 24 Hours 10/11/19 10/12/19 10/13/19 23:59 23:59 23:59 Intake Total 790 / 790 1294 / 1294 Output Total 1800 / 1800 1900 / 1900 2250 / 2250 Balance -1010 / -1010 -606 / -606 -2250 / -2250 General: Alert, Oriented x3, Cooperative, No apparent distress, Well developed, Well nourished, - - Speaking in full sentences HEENT: Atraumatic, PERRLA, EOMI, Normocephalic, - - No scleral icterus or injection noted Oral: Moist Mucosa, No Gingival or Mucosal Lesions/ Ulcerations Neck: Supple, No JVD, No Nodes, Trachea Midline Lungs: No rhonchi, No wheeze, No rales, Diminished - Left greater than right. D ullness to percussion. Cardiovascular: Regular rate, Regular Rhythm, Normal S1, Normal S2, No murmurs, No rub noted, No Gallop Abdomen: Bowel Sounds Present, Soft, Non Tender, Non-Distended Extremities: No clubbing, No cyanosis, No edema, Capillary Refill Less than 3 Seconds Skin: No rashes, No breakdown Musculoskeletal: No Tenderness to Palpation of Joints or Extremities Lymphatic: No Cervical, Supraclavicular, or Inguinal Adenopathy Neurological: Cranial nerves II-XII grossly intact, Neuro grossly intact, Motor Exam 5/5 strength throughout Psych/Mental Status: Alert and oriented to time, place, person, mood and affect Microbiology Past 72 Hours 10/12/19 07:18 Mucosa - Nasopharyngeal Coronavirus COVID-19 PCR - Final 10/11/19 18:00 Urine, Random Streptococcus pneumoniae Antigen (M - Final 10/11/19 18:00 Urine, Random Legionella Antigen - Final 10/11/19 10:30 Mucosa - Nasopharyngeal Coronavirus COVID-19 PCR - Final Laboratory Results 10/12/19 07:18: COVID-19 ([facility]) Cancelled 10/13/19 06:00: Sodium 136, Potassium 3.4 L, Chloride 99, Carbon Dioxide 27.0, Anion Gap 10, BUN 13, Creatinine 0.94, Estim Creat Clear Calc 59.54, Est GFR (MDRD) Af Amer 98, Est GFR (MDRD) Non-Af 81, BUN/Creatinine Ratio 13.8, Glucose 94, Calcium 8.4 L, Total Bilirubin 0.80, AST 18, ALT 20, Alkaline Phosphatase 58, Total Protein 6.3 L, Albumin 2.6 L, Globulin 3.7, Albumin/Globulin Ratio 0.7 L Current Medications Acetaminophen (Tylenol) 650 mg PO Q6H PRN PRN PRN Reason: Pain Score 1-10/Temp > 100.7 F Aspirin (Ecotrin) 81 mg PO DAILY [facility] Last Admin: 10/12/19 08:36 Dose: 81 mg Documented by: Famotidine (Pepcid) 20 mg PO BID [facility] Last Admin: 10/12/19 20:03 Dose: 20 mg Documented by: Furosemide (Lasix) 40 mg IV BIDLX [facility] Last Admin: 10/12/19 19:57 Dose: 40 mg Documented by: Hydrocortisone (Hytone) 1 applic RECTAL BID PRN PRN Reason: HEMORRHOIDS Sodium Chloride () 250 mls @ 15 mls/hr IV .[id number] PRN PRN Reason: Saline Flush Sodium Chloride () 250 mls @ 15 mls/hr IV .[id number] PRN PRN Reason: Additional IVPB Infusion Ceftriaxone Sodium (Rocephin) 1 gm in 50 mls @ 100 mls/hr IV Q24 [facility] Last Infusion: 10/12/19 11:35 Dose: Infused Documented by: Magnesium Hydroxide (Milk Of Magnesia) 30 ml PO DAILY PRN PRN PRN Reason: Constipation Polyethylene Glycol (Miralax) 17 gm PO QODAY [facility] Propranolol HCl (Inderal) 10 mg PO DAILY [facility] Last Admin: 10/12/19 08:35 Dose: 10 mg Documented by: Sodium Chloride () 10 - 40 ml IV UD PRN PRN Reason: SALINE FLUSH Last Admin: 10/12/19 20:03 Dose: 10 ml Documented by: Verapamil HCl (Calan Sr) 240 mg PO DAILY [facility] Last Admin: 10/12/19 08:35 Dose: 240 mg Documented by: Medical Necessity - Tobacco Use Smoking Status: Former smoker Tobacco Use: Non-smoker Assessment/Plan All Active Problems Dyspnea (Acute) Pleural effusion (Acute) RECOMMENDATIONS: 1. Continue diuresis 2. Hold Tasigna 3. Walking oximetry on room air, possible discharge if no supplemental oxygen required 4. Possible thoracentesis if unresponsive to diuresis on Monday 5. Potassium supplementation as indicated 6. 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 Repeat CT scan as an outpatient once euvolemic IMPRESSIONS: 1. Acute hypoxic respiratory insufficiency secondary to fluid overload/bilateral pleural effusion Patient with new onset bilateral pleural effusions. This may be secondary to his chemotherapy versus acute on chronic CHF. Echocardiogram was not suggestive of CHF. Low clinical suspicion for infectious etiology/parapneumonic effusion given lack of fever and leukocytosis. Patient is not reporting any productive cough. Okay to discontinue antibiotics from my perspective. 2. New right upper lobe nodule in the setting of possible renal mass No imaging available for review from [facility]. My review of the CT scan does show a 9 mm right upper lobe nodule that has not been described previously. Patient's documentation did report a possible renal mass and patient is recently had a biopsy in the bladder. This may represent a metastatic lesion. However, this may also be secondary to compression artifact associated with bilateral pleural effusions. Repeat CT scan once euvolemic would be appropriate. 3. Paroxysmal A. 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 Okay to continue with baseline medications from my perspective. Would hold on any systemic anticoagulation until it is clear that he will not require any interventions. Inpatient E&M: 13817 [facility] Hosp L2
[2019-10-13 07:52] VITALS: BP 166/94; PULSE 110; RESP 18; TEMP 37.2; O2SAT 96
--- NOTE | 2019-10-13 10:13 | PCM.DC ---
- Discharge Diagnoses Current Active Problems: Current Active and Chronic Problems Dyspnea (Acute) Pleural effusion (Acute) Reason(s) for Visit for Discharge Instructions: Shortness of breath, fluid retention You will use the following diet at home:: Cardiac Your food should be the consistency of: Regular Your liquids should be the consistency of: Regular/Thin Discharge Activity: Return to Normal Activity Additional Instructions: Take note of changes to your medications. Weigh yourself everyday and keep a log of it. Do not take your Tasigna. Follow-up with Dr. Medina within 1 week. You have been discharged on potassium. You need a repeat BLOOD KIDNEY FUNCTION TEST to test on your kidneys and potassium panel within 1 week. Contionue to use your incentive spirometer 10 times every 1 hour. Allergies/Adverse Reactions: Allergies paroxetine [From Paxil] Allergy (Verified 10/11/19 10:03) Other CARDIAC ARRHYTHMIA Medications to take at Discharge Aspirin E.C. [Ecotrin] 81 mg PO DAILY@0800 06/10/19 Cholecalciferol (Vitamin D3) [Vitamin D3] 25 mcg PO DAILY 06/10/19 Cyanocobalamin (Vitamin B-12) [Cyanocobalamin Injection] 1,000 mcg IJ .Q2MO 06/10/19 Famotidine [Pepcid AC] 20 mg PO BID 06/10/19 Hydrocortisone [Procto-Med Hc] [address] BID 06/10/19 Lorazepam 0.5 mg PO Q6H PRN PRN 06/10/19 Propranolol HCl [Inderal (Beta Chauncey)] 10 mg PO DAILY 06/10/19 Verapamil HCl [Verapamil ER] 240 mg PO DAILY 06/10/19 Polyethylene Glycol 3350 [Miralax] 17 gm PO QODAY 10/11/19 Acetaminophen [Tylenol Tablet] 650 mg PO Q6H PRN PRN tab 10/13/19 Furosemide [Lasix] 40 mg PO DAILY 30 Days #30 tab 10/13/19 Potassium Chloride [Klor-Con M20] 40 meq PO DAILY 10 Days #20 tab.er.prt 10/13/19 The following prescriptions were given: Potassium Chloride [Klor-Con M20] 40 meq PO DAILY 10 Days #20 tab.er.prt Furosemide [Lasix] 40 mg PO DAILY 30 Days #30 tab Transmission Status: Pending to [facility]30 Primary Care Physician: Alok Branch MD [Primary Care Provider] - Please follow up with your Primary Care Physician in: within 1-2 weeks Test Results: Test results from this visit will be discussed in further detail at your follow-up appointment, if applicable. Please Follow Up With: Xochitl Medina MD When: within 1-2 weeks Proposed Discharge Date: 10/13/19
--- NOTE | 2019-10-13 10:18 | DS.PCM_ITS ---
Discharge Date and Diagnosis Date of Admission: 10/11/19 Date of Discharge: 10/13/19 - Primary Discharge Diagnosis Active and Suspected Problems Acute hypoxic respiratory insufficiency Acute bilateral pleural effusion Hypokalemia Acute PE ruled out New left upper lobe pulmonary nodule Acute left upper and lower lobe pneumonia ruled out Tasigna related fluid overload state - Secondary Discharge Diagnosis Chronic Problems Hx of peptic ulcer (Chronic) HTN (hypertension) (Chronic) Hx of venous thrombosis and embolism (Chronic) History of tobacco use (Chronic) Atrial fibrillation (Chronic) Hospital Course and Treatment Imaging Results: Clinical Impression(s) from Imaging Studies Chest CTA 10/11/19 11:34 IMPRESSION: Moderate bilateral pleural effusions with compressive atelectasis versus infiltrates in both lower lobes. Focal area of groundglass appearance in the lingular segment of the left upper lobe as well as in the left lower lobe. No evidence of pulmonary embolism. Electronically Signed: Sherwin Agnieszka, at 12:21 EDT , Service support , Pulmonology Operations: None Procedures: 2-D Echocardiogram Summary of Care Provided: 84 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 Patient was on 2-3 Lof oxygen. CTA of the chest showed no PE, but rather bilateral pleural effusions, atelectasis, possible left upper and lower lobe pneumonia and lung nodule. He had COVID-19 testing which was negative. He was admitted to the COVID-19 floor and COVID-19 test was repeated and negative. Patient improved the next day, off oxygen. 2d-echo showed small pericardial effusion, normal LV function and left pleural effusion. He was continued on empiric antibiotics- ceftriaxone and azithromycin. Blood cultures, urine streptococcal and legionella antigen were negative. Patient remained afebrile during this admission. Pneumonia was ruled out. Antibiotics were stopped at discharge. Patient's BNPep was low and 2D-ECHO was not suggestive of CHF. Discussed with oncology, patient was discharged off Tasigna and Gleevec. He was discharged on oral lasix and potassium. He will need repeat kidney functiontest to follow-up on hypokalemia developed in the hospital. He will need repeat CT scan of chest later on to follow-up on lung nodules and pleural effusion. He did not qualify for oxygen at discharge. He was encouraged to follow a low salt diet. He needs to weigh himself daily. He was encouraged to use his incentive spirometer. Subjective: On the day of discharge, patient was seen and examined. He felt improved. Denied SOB, chest pain or fever Objective: Physical exam: General: Alert, Oriented x3, Cooperative, No apparent distress HEENT: Atraumatic, PERRLA, EOMI, Normocephalic Oral: Moist Mucosa Neck: Supple Lungs: Clear to auscultation Cardiovascular: Regular rate, Regular Rhythm, Normal S1, Normal S2, No murmurs Abdomen: Bowel Sounds Present, Soft, Non Tender Extremities: No edema Skin: No rashes Musculoskeletal: No Tenderness to Palpation of Joints or Extremities Lymphatic: No Cervical, Supraclavicular, or Inguinal Adenopathy Neurological: Cranial nerves II-XII grossly intact, Neuro grossly intact Psych/Mental Status: Normal Affect, Appropriate - Physical Exam Vitals/I&O's: Vital Signs Temp Pulse Resp BP Pulse Ox 98.9 F 110 H 18 166/94 H 96 10/13/19 07:52 10/13/19 07:52 10/13/19 07:52 10/13/19 07:52 10/13/19 07:52 Oxygen Flow Rate (L/min) 2 Oxygen Delivery Method Room Air Weight: 81.193 kg Body Mass Index (BMI) 27.4 Intake and Output for Last 24 Hours 10/11/19 10/12/19 10/13/19 23:59 23:59 23:59 Intake Total 790 / 790 1294 / 1294 Output Total 1800 / 1800 1900 / 1900 2250 / 2250 Balance -1010 / -1010 -606 / -606 -2250 / -2250 Microbiology Past 72 Hours 10/12/19 07:18 Mucosa - Nasopharyngeal Coronavirus COVID-19 PCR - Final 10/11/19 18:00 Urine, Random Streptococcus pneumoniae Antigen (M - Final 10/11/19 18:00 Urine, Random Legionella Antigen - Final 10/11/19 10:30 Mucosa - Nasopharyngeal Coronavirus COVID-19 PCR - Final Laboratory Results 10/13/19 06:00: Sodium 136, Potassium 3.4 L, Chloride 99, Carbon Dioxide 27.0, Anion Gap 10, BUN 13, Creatinine 0.94, Estim Creat Clear Calc 59.54, Est GFR (MDRD) Af Amer 98, Est GFR (MDRD) Non-Af 81, BUN/Creatinine Ratio 13.8, Glucose 94, Calcium 8.4 L, Total Bilirubin 0.80, AST 18, ALT 20, Alkaline Phosphatase 58, Total Protein 6.3 L, Albumin 2.6 L, Globulin 3.7, Albumin/Globulin Ratio 0.7 L Current Medications Acetaminophen (Tylenol) 650 mg PO Q6H PRN PRN PRN Reason: Pain Score 1-10/Temp > 100.7 F Aspirin (Ecotrin) 81 mg PO DAILY [facility] Last Admin: 10/12/19 08:36 Dose: 81 mg Documented by: Famotidine (Pepcid) 20 mg PO BID [facility] Last Admin: 10/12/19 20:03 Dose: 20 mg Documented by: Furosemide (Lasix) 40 mg IV BIDLX [facility] Last Admin: 10/12/19 19:57 Dose: 40 mg Documented by: Hydrocortisone (Hytone) 1 applic RECTAL BID PRN PRN Reason: HEMORRHOIDS Sodium Chloride () 250 mls @ 15 mls/hr IV .[id number] PRN PRN Reason: Saline Flush Sodium Chloride () 250 mls @ 15 mls/hr IV .[id number] PRN PRN Reason: Additional IVPB Infusion Ceftriaxone Sodium (Rocephin) 1 gm in 50 mls @ 100 mls/hr IV Q24 [facility] Last Infusion: 10/12/19 11:35 Dose: Infused Documented by: Magnesium Hydroxide (Milk Of Magnesia) 30 ml PO DAILY PRN PRN PRN Reason: Constipation Polyethylene Glycol (Miralax) 17 gm PO QODAY [facility] Potassium Chloride (K-Dur) 40 meq PO BIDCM [facility] Last Admin: 10/13/19 08:12 Dose: 40 meq Documented by: Propranolol HCl (Inderal) 10 mg PO DAILY [facility] Last Admin: 10/12/19 08:35 Dose: 10 mg Documented by: Sodium Chloride () 10 - 40 ml IV UD PRN PRN Reason: SALINE FLUSH Last Admin: 10/12/19 20:03 Dose: 10 ml Documented by: Verapamil HCl (Calan Sr) 240 mg PO DAILY [facility] Last Admin: 10/12/19 08:35 Dose: 240 mg Documented by: Discharge Diet: Low fat/ Low Cholesterol, 2000 mg Sodium Diet Discharge Activity: Return to Normal Activity Home Medications: Medications to take at Discharge Aspirin E.C. [Ecotrin] 81 mg PO DAILY@0800 06/10/19 Cholecalciferol (Vitamin D3) [Vitamin D3] 25 mcg PO DAILY 06/10/19 Cyanocobalamin (Vitamin B-12) [Cyanocobalamin Injection] 1,000 mcg IJ .Q2MO 06/10/19 Famotidine [Pepcid AC] 20 mg PO BID 06/10/19 Hydrocortisone [Procto-Med Hc] 30 gm MO BID 06/10/19 Lorazepam 0.5 mg PO Q6H PRN PRN 06/10/19 Propranolol HCl [Inderal (Beta Chauncey)] 10 mg PO DAILY 06/10/19 Verapamil HCl [Verapamil ER] 240 mg PO DAILY 06/10/19 Polyethylene Glycol 3350 [Miralax] 17 gm PO QODAY 10/11/19 Acetaminophen [Tylenol Tablet] 650 mg PO Q6H PRN PRN tab 10/13/19 Furosemide [Lasix] 40 mg PO DAILY 30 Days #30 tab 10/13/19 Potassium Chloride [Klor-Con M20] 40 meq PO DAILY 10 Days #20 tab.er.prt 10/13/19 Following Prescrptions Were Given to Patient: Potassium Chloride [Klor-Con M20] 40 meq PO DAILY 10 Days #20 tab.er.prt Furosemide [Lasix] 40 mg PO DAILY 30 Days #30 tab Transmission Status: Received by [facility] #30 Primary Care Physician: Alok Branch MD [Primary Care Provider] - Please follow up with your Primary Care Physician in: within 1-2 weeks Please Follow Up With: Xochitl Medina MD When: within 1-2 weeks Disposition: Home Minutes spent on discharge:: 40 Medical Necessity - Tobacco Use Smoking Status: Former smoker Tobacco Use: Non-smoker Meaningful Use Info Meaningful Use Diagnoses (Choose all that apply): None applicable Inpatient E&M: 60994 Disch Hosp
[2019-10-13] MEDS: Ceftriaxone 1 GM/50 ML BAG IV (10:24)
[2019-10-13] MEDS: 0.9% Saline Lock 10 ML Syringe IV ×2 (10:24→17:10)
[2019-10-13] MEDS: Furosemide 40 MG/4 ML Vial IV ×2 (10:25→17:09)
[2019-10-13] MEDS: Propranolol 10 MG Tablet PO (10:25)
[2019-10-13] MEDS: Aspirin E.C. 81 MG Tablet PO (10:25)
[2019-10-13] MEDS: Verapamil SR 240 MG Tablet PO (10:25)
[2019-10-13] MEDS: Famotidine 20 MG Tablet PO (10:36)
[2019-10-13] MEDS: Polyethylene Glycol 3350 17 GM PACKET PO (10:36)
[2019-10-13 17:17] VITALS: BP 138/70; PULSE 74; RESP 18; TEMP 36.7; O2SAT 97
--- NOTE | 2019-10-14 10:35 | PCA ---
patient called on 10/13 the day after he was discharged saying he went to pharmacy to get his medications and the only med there was the Lasix not the potassium chloride. I explained that doctor cristian isn't here today so he will have to get in contact with his primary care and get that prescription.. he said he didn't understand why he had to go through them instead of the doctor that prescribed it. I explained to him that primary care will prescribe it to him and understand what happened. He wanted to talk to cristian I transferred him to the timber incisor operator to see if she can do that.
--- NOTE | 2019-10-14 12:31 | NURSING ---
Addendum entered by Tatiana Aquino 10/14/19 12:34: pt called and updated Original Note: script for Potassium Chloride 20meq- 40meq PO Daily- 10days, #20 tabs called to pharmasist [facility] as discussed w/ Dr.Paintsil DOZIER 10/14/2019 @12:31
== END 2019-10-13 17:25 | disposition home or self-care (01) | DRG 187 ==
LOC: ED 13:11 → ICU 14:30 → MS3 10-12 12:16
PROVIDERS: Admitting Provider Internal Medicine; Emergency Provider Emergency Medicine; PCP Family Medicine; Visit Provider Internal Medicine
DX: J90 Pleural effusion, not elsewhere classified (principal); I31.3 Pericardial effusion (noninflammatory); C92.10 Chronic myeloid leukemia, BCR/ABL-positive, not having achieved remission; J98.11 Atelectasis; E87.70 Fluid overload, unspecified; R09.02 Hypoxemia; I48.0 Paroxysmal atrial fibrillation; E87.6 Hypokalemia; R91.1 Solitary pulmonary nodule; I10 Essential (primary) hypertension; Z66 Do not resuscitate; Z87.11 Personal history of peptic ulcer disease; Z86.718 Personal history of other venous thrombosis and embolism; Z87.891 Personal history of nicotine dependence; Z79.82 Long term (current) use of aspirin; Z85.46 Personal history of malignant neoplasm of prostate
CPT/HCPCS: 36415; 71275; 80053; 82728; 83690; 83735; 83880; 84145; 84484; 85025; 85379; 86140; 86850; 86900; 86901; 87040; 87449; 87635; 93005; 93306; 99285; G2023; J7030; J7050; Q9967; A4216; J1940; U0002

== ENCOUNTER 2020-11-30 16:56 | Emergency (ER) | payer MEDICARE, SELFPAY ==
[2019-10-11 15:15] VITALS: BMI 27.4
[2020-11-30] VITALS (8 sets, daily range): BP systolic 128–158; BP diastolic 70–79; PULSE 95–121; RESP 17–21; TEMP 36.6–37.1; O2SAT 96–98; BMI 25.8
--- NOTE | 2020-11-30 17:17 | EKG12_ITS ---
Test Reason : Blood Pressure : / mmHG Vent. Rate : 118 BPM Atrial Rate : 118 BPM P-R Int : 156 ms QRS Dur : 094 ms QT Int : 326 ms P-R-T Axes : 024 011 025 degrees QTc Int : 456 ms Sinus tachycardia with frequent Premature ventricular complexes Low voltage QRS Confirmed by NADIA SHELBY, ANA ([id number]), city editor JOAO HERNDON ([id number]) on 12/02/2020 1:58:41 PM Referred By: OSWALDO/RICKY Confirmed By:ANA ZUNIGA MD
--- NOTE | 2020-11-30 17:18 | EDS_ITS ---
HPI History of Present Illness Chief Complaint: Abd Pain Informant: patient Narrative Narrative: Patient is a 85-year-old male with a past medical history of CML, DVT after knee surgery, hypertension who presents to the emergency department for epigastric abdominal pain. He states he also coughs whenever he takes a deep breath then. This initially started 2 days ago. He has never had this before. He currently rates his pain as moderate. No radiation of the pain. He denies any chest pain or shortness of breath. He states he has been eating less without an appetite. He has not been vomiting. No change in moving bowels. He denies any urinary symptoms. No leg swelling passes baseline or calf pain. He is not on any blood thinning medications. He does not know any aggravating or relieving factors. PFSH PFSH Home Medications aspirin 81 mg PO DAILY@0800 06/10/19 [History Last Taken Unknown] cholecalciferol (vitamin D3) 25 mcg PO DAILY 06/10/19 [History Last Taken Unknown] cyanocobalamin (vitamin B-12) 1,000 mcg IJ .Q2MO 06/10/19 [History Last Taken Unknown] famotidine 20 mg PO BID 06/10/19 [History Last Taken 06/14/19 06:00 20 MG] lorazepam 0.5 mg PO Q6H PRN PRN 06/10/19 [History Last Taken Unknown] propranolol 10 mg PO DAILY 06/10/19 [History Last Taken Unknown] verapamil 240 mg PO DAILY 06/10/19 [History Last Taken 06/14/19 06:00 240 MG] polyethylene glycol 3350 17 gm PO QODAY 10/11/19 [History Last Taken Unknown] acetaminophen 650 mg PO Q6H PRN PRN tab 10/13/19 [Rx Last Taken Unknown] hydrochlorothiazide 12.5 mg DAILY 11/30/20 [History Last Taken Unknown] Allergy/AdvReac Type Severity Reaction Status Date / Time paroxetine [From Paxil] Allergy Other Verified 11/30/20 17:00 Social History Smoking Status: Former smoker ROS ROS ED Constitutional Constitutional ED: Denies chills or fever(s) Eyes Eyes: Denies change in vision ENT ENT ED: Denies epistaxis or rhinorrhea Cardiovascular Cardiovascular: Denies chest pain or palpitations Respiratory/Chest Respiratory/Chest: Reports cough; Denies dyspnea or dyspnea on exertion Gastrointestinal Gastrointestinal: Reports abdominal pain; Denies diarrhea, nausea or vomiting Genitourinary Genitourinary ED: Denies dysuria, hematuria or urinary frequency Musculoskeletal Musculoskeletal: Denies back pain or neck pain Integumentary Denies rash Neurologic Neurologic: Denies dizziness, headache(s) or weakness EXAM Physical Exam Const Vital Signs: 11/30/20 16:58 Temperature 98.3 F Temperature Source Temporal Pulse Rate 121 H Respiratory Rate 17 Blood Pressure 149/75 H Blood Pressure Mean 99 Pulse Ox 97 Oxygen Delivery Method Room Air Positive well nourished and well developed General Appearance ED: well developed and NAD HEENT Reports normocephalic, head/scalp atraumatic and moist mucous membranes Eyes PERRL and EOMs intact bilaterally Neck supple Chest Wall inspection of chest normal Resp normal respiratory effort and clear to auscultation bilaterally Auscultation: Negative for rales, rhonchi or wheezes Cardio regular rhythm and no murmurs Rate: tachycardic GI normal to inspection, nondistended, normoactive bowel sounds Palpation: soft and tender epigastric; Negative for guarding or rebound tenderness present Extremity normal to inspection General Extremety ED: Negative for tenderness Neuro no sensory deficits noted Sensorium / Orientation: alert Motor Exam: strength 5/5 throughout Psych mental status grossly normal Skin no rashes or lesions noted MDM MDM MDM Narrative Medical decision making narrative: Patient presents to the emergency department for epigastric abdominal pain over the past 2 days. He states he also has to cough every time he tries to take a deep breath then. On arrival to the emergency department he is tachycardic but otherwise normal vital signs. He is in no acute distress. He is tender in the epigastric region. Will check basic lab work. Patient's lab work shows an elevated white blood cell count. He is mildly anemic but this is similar to lab draw. He does have 1 percentage of blast cells. This is consistent with his CML. His sodium is mildly low at 132. His liver enzymes are elevated. His total bili is 3.5. His BNP is 463. Given his abnormal lab work-up CT imaging was obtained which showed severe intrahepatic and extrahepatic biliary duct dilatation with possible mass or stone in the bile duct. MRCP was recommended. There is a 2 cm mass of the kidney which is consistent with his previous imaging. Patient was already aware of this. I discussed the case with Dr. Tidwell the general surgeon on-call. She recommended transferring the patient as if this is cancer she would not be able to help him. I did discuss the case with Valery jacob per patient's request. On reexamination his pain is much better. Patient was given IV fluids as he did meet sepsis criteria with tachycardia and white blood cell count. I will not give him the full 30 cc/kg bolus dosing given the fact he has effusions, elevated BNP. He is started on Zosyn. The patient will be transferred to the ED and I did get accepting physician. Patient otherwise has been stable throughout ED stay. Clinical impression: #1 abdominal pain #2 acute cholecystitis #3 pleural effusions #4 sepsis #5 kidney mass Discharge Plan Triage Chief Complaint: Abd Pain ED Provider: Josué Castillo Dx/Rx/DC Orders Prescriptions: No Action aspirin 81 MG tablet 81 mg PO DAILY@0800 RF: 0 propranolol 10 MG tablet 10 mg PO DAILY RF: 0 famotidine 20 MG tablet 20 mg PO BID RF: 0 cyanocobalamin (vitamin B-12) 1,000 MCG/ML solution 1,000 mcg IJ .Q2MO RF: 0 verapamil 240 MG tablet extended release 240 mg PO DAILY RF: 0 lorazepam 1 MG tablet 0.5 mg PO Q6H PRN PRN (Reason: Anxiety) RF: 0 cholecalciferol (vitamin D3) 25 MCG tablet 25 mcg PO DAILY RF: 0 polyethylene glycol 3350 17 GM packet 17 gm PO QODAY RF: 0 acetaminophen 325 MG tablet 650 mg PO Q6H PRN PRN (Reason: Pain Score 1-10/Temp > 100.7 F) RF: 0 hydrochlorothiazide 12.5 mg capsule 12.5 mg DAILY RF: 0 Primary Care Provider: Alok Branch Referrals: Alok Branch MD [Primary Care Provider] - Disposition Disposition: Acute Care Hospital Discharge Location: [facility] [facility] Discharge Date/Time: 11/30/20 23:31
[2020-11-30 17:38] LABS: Hematocrit 30.1 % (40-54); Hemoglobin 10.2 g/dL (13.0-16.5); Mean Corp Hgb Conc 33.9 g/dL (32-36); Mean Corpuscular Hgb 30.7 pg (27.0-32.0); Mean Corpuscular Volume 90.7 fL (80-94); Mean Platelet Vol. 9.3 fl (6.2-12.0); POSITIVE MORPHOLOGY YES; Platelet Count 275 K/mm3 (150-450); RBC Distribution Width CV 14.8 % (11.6-14.6); RBC Distribution Width SD 49.4 fl (35.1-43.9); Red Blood Count 3.32 M/mm3 (4.6-6.2); White Blood Count 13.4 K/mm3 (4.4-11.0)
--- NOTE | 2020-11-30 17:52 | RAD_ITS ---
STUDY: X-RAY CHEST REASON FOR EXAM: Male, 85 years old. Epigastric pain, tachycardia, cough TECHNIQUE: Single AP portable view of the chest. COMPARISON: None. FINDINGS: The lungs are clear and expanded. Tiny bilateral pleural effusions. Normal size heart. Normal mediastinum and maryana. Normal visualized pulmonary arteries. Normal visualized aortic arch and descending thoracic aorta. Normal visualized thoracic spine. Normal visualized ribs, clavicles, and shoulders. There is no demonstrated abnormality of the visualized soft tissue structures of the upper abdomen. RAD/Chest 1 View (Portable) IMPRESSION: Tiny bilateral pleural effusions. Electronically Signed: Neno Cueva MD at 18:57 EDT Tel , Service support ,
[2020-11-30 18:01] LABS: ALB/GLOB Ratio 0.7 RATIO (0.9-2.4); AST(SGOT) 66 U/L (15-37); Alanine Aminotransfer ALT/SGPT 143 U/L (16-61); Albumin, Serum 2.5 g/dL (3.2-5.0); Alkaline Phosphatase 214 U/L (45-117); Anion Gap 8 (5-15); BUN 16 mg/dL (7-18); BUN/Creat Ratio 14.5 RATIO (10-20); Calcium,Total 7.7 mg/dL (8.5-10.1); Chloride 99 mmol/L (98-107); EST Glomerular Filtration Rate 68 mL/min (>60); Est Glom Filt Rate - Afr Amer 82 mL/min (>60); Estimated Creatinine Clearance 49.99 ml/min; Globulin 3.4 g/dL (2.2-4.2); Glucose 138 mg/dL (74-106); Lipase 44 U/L (73-393); Potassium 3.5 mmol/L (3.5-5.1); Protein, Total 5.9 g/dL (6.4-8.2); Sodium Level 132 mmol/L (136-145); Troponin-I HS 30.9 pg/mL (3.0-78.5)
[2020-11-30 18:03] LABS: BNP,B-Type NATRIURETIC PEPTIDE 463.9 pg/mL (0-100)
[2020-11-30 18:32] LABS: Differential Indicated MANUAL DIFF
[2020-11-30 18:38] LABS: Blast 1 % (0-0); Lymphocyte 10 % (19-41); Monocyte 2 % (0-10); Neutrophil-Band 18 % (0-5); Neutrophil-Segmented 69 % (47-70); Total Cells Counted 100 (MANUAL DIFF)
--- NOTE | 2020-11-30 18:42 | CT_ITS ---
STUDY: CT ABDOMEN AND PELVIS WITH CONTRAST REASON FOR EXAM: Male, 85 years old. Eval gallbladder RADIATION DOSAGE (If Supplied By Facility): CTDIvol = ( 19.78 ) mGy, DLP = ( 1681.44 ) mGycm TECHNIQUE: Transaxial images were obtained from the dome of the diaphragm to the symphysis pubis without oral contrast. IV 100mL Isovue-370 was administered. Sagittal and coronal images were reconstructed. Individualized dose optimization techniques were used for this CT. COMPARISON: 05/20/2019 FINDINGS: Small bilateral pleural effusions with bibasilar atelectasis. The visualized portions of the heart are within normal limits. Small amount of free fluid surrounding the liver and in the pelvis of uncertain etiology. 4 cm mass with peripheral globular enhancement within the posterior segment the right lobe of the liver consistent with hemangioma. Severe intrahepatic and extrahepatic biliary ductal dilatation with the common hepatic duct measuring 14 mm in diameter. There is a questionable area of soft tissue attenuation within the distal common bile duct which may represent choledocholithiasis. Correlation with MRCP would be useful. Normal spleen. Normal pancreas. Normal bilateral adrenal glands. There is no change in the 2 cm enhancing solid mass of the midsection of the right kidney worrisome for renal cell carcinoma. No tumor thrombus is identified within the right renal vein or inferior vena cava. Normal left kidney. Status post antrectomy with creation of gastrojejunostomy. Normal small intestine. Normal colon. There is non-visualization of the appendix. There is diffuse atherosclerotic calcification of the abdominal aorta, without a demonstrated aneurysm. There is an IVC filter in place. Normal retroperitoneum. Normal urinary bladder. Normal abdominal wall. Mild dextroscoliosis of the thoracic lumbar spine with degenerative disc disease. CT/Abdomen/Pelvis W IV Cont ONLY IMPRESSION: 1. Small bilateral pleural effusions with bibasilar atelectasis. 2. Severe intrahepatic and extrahepatic biliary ductal dilatation with a possible mass or stone in the distal common bile duct. Correlation with MRCP would be useful. 3. Status post gastric antrectomy with gastrojejunostomy. 4. No change in 2 cm solid enhancing mass in the midsection right kidney worrisome for renal cell carcinoma. 5. Small amount of free fluid without obvious etiology. Electronically Signed: Neno Cueva MD at 20:24 EDT Tel , Service support ,
[2020-11-30 18:46] LABS: Absolute Lymphocyte Count 1.34 X10^3/uL (0.83-4.51); Absolute Neutrophil Count 11.6 X10^3/uL (2.0-7.7)
[2020-11-30 18:47] LABS: Dohle Bodies 2+; Platelet Estimate ADEQUATE (ADEQ); Red Cell Morphology NORM C+C NORMAL (NORM C&C)
[2020-11-30] MEDS: HYDROmorphone 0.5 MG/0.5 ML SYRINGE IV (19:10)
[2020-11-30] MEDS: 0.9% Normal Saline 1,000 ML 999 ML IV (21:20)
[2020-12-01 12:24] LABS: Pathologist Review Reviewed
== END 2020-11-30 23:31 | disposition short-term general hospital (02) ==
LOC: ED 17:29
PROVIDERS: Emergency Provider Emergency Medicine; PCP Family Medicine
DX: A41.9 Sepsis, unspecified organism (principal); K81.0 Acute cholecystitis; J90 Pleural effusion, not elsewhere classified; N28.89 Other specified disorders of kidney and ureter; Z87.891 Personal history of nicotine dependence; I10 Essential (primary) hypertension; Z86.718 Personal history of other venous thrombosis and embolism; R00.0 Tachycardia, unspecified; R05 Cough
CPT/HCPCS: 71045; 74177; 80053; 83690; 83880; 84484; 85025; 93005; 96365; 96375; 99285; J7030; Q9967; A4216

== ENCOUNTER → 2021-03-08 15:31 | Outpatient (CLI) | payer MEDICARE, SELFPAY ==
--- NOTE | 2021-03-08 13:43 | CYSPIN_PTH ---
PATIENT: ABHISHEK BAILEY LOC: [facility] U#:[id number] AGE/SX: 89/M ROOM: RE03/08/[address]: Dr. Immanuel Panda MD : 1935 BED: DIS: SPEC #: [id number] RECD: 03/08/21 15:34 STATUS: DAYNA REMarylou #: [id number] SHANDA: 03/08/21 13:[address]: Immanuel Panda DEPT: CYTOLOGY RECD BY: Sada Nicolas ENTERED: 03/09/21 07:25 SP TYPE: CYSPIN FL OTHR DR: Dr. 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 See comment. SJ:albina 03/09/2021 COMMENT Clinical correlation and appropriate follow up are necessary. 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 Case has been reviewed in consultation with Dr. Ballesteros who concurs with the above diagnosis. IDC:AM CYTOLOGY STUDY Slides are reviewed. CYTOLOGY GROSS Received is 50 ml of cloudy yellow fluid labeled with the patient's name and and designated per the requisition as urine. Submitted for cytology preparation. / albina 03/09/2021 TC:5 CPT: 25510
[2021-03-08 15:33] LABS: Cytology, Body Fluid / CSF SEE PATHOLOGY REPORT
== END ==
PROVIDERS: PCP Family Medicine; Visit Provider Urology
DX: C67.1 Malignant neoplasm of dome of bladder (principal)
CPT/HCPCS: 88108; 88313

== ENCOUNTER → 2021-09-21 | Outpatient (CLI) | payer MEDICARE, SELFPAY ==
--- NOTE | 2021-09-21 13:32 | CYSPIN_PTH ---
PATIENT: ABHISHEK BAILEY LOC: [facility] U#:[id number] AGE/SX: 86/M ROOM: RE09/21/[address]: Dr. Immanuel Panda MD : 1935 BED: DIS: 09/21/2021 SPEC #: [id number] RECD: 09/22/21 09:09 STATUS: DAYNA SIMON #: [id number] SHANDA: 09/21/21 13:[address]: Immanuel Panda DEPT: CYTOLOGY RECD BY: Sada Nicolas ENTERED: 09/22/21 09:10 SP TYPE: CYSPIN FL OTHR DR: Dr. Alok Branch MD Tissues: Urine Procedures: Pap Stain (control) Special Stain Group II Cytospin Fluid HEADER OPERATION: Not noted PRE-OP DIAGNOSIS: Malignant neoplasm of bladder TISSUE SUBMITTED: Urine for cytology DIAGNOSIS CYTOLOGY Urine for cytology (cytospin): Rare atypical urothelial cells noted. Mild acute inflammation. See comment. SJ:albina 09/22/2021 COMMENT Red blood cells are also noted. 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 CYTOLOGY STUDY Slides are reviewed. CYTOLOGY GROSS Received is 30 ml of yellow cloudy fluid labeled with the patient's name and and designated per the requisition as urine. Submitted for cytology preparation. / albina 09/22/2021 TC:5 CPT: 39357
[2021-09-21 16:15] LABS: Cytology, Body Fluid / CSF SEE PATHOLOGY REPORT
== END | disposition home or self-care (01) ==
LOC: LABSPEC 16:00
PROVIDERS: PCP Family Medicine; Visit Provider Urology
DX: C67.1 Malignant neoplasm of dome of bladder (principal)
CPT/HCPCS: 88108; 88313

== ENCOUNTER 2021-12-28 01:18 | Emergency (ER) | payer MEDICARE, SELFPAY ==
[2021-12-28 01:19] VITALS: BP 181/80; PULSE 83; RESP 17; TEMP 36.8; O2SAT 92; BMI 27.8
[2021-12-28 01:39] VITALS: BP 181/82
--- NOTE | 2021-12-28 01:45 | EKG12_ITS ---
Test Reason : DYSRHYTHMIA Blood Pressure : / mmHG Vent. Rate : 082 BPM Atrial Rate : 082 BPM P-R Int : 196 ms QRS Dur : 090 ms QT Int : 396 ms P-R-T Axes : 065 002 032 degrees QTc Int : 462 ms Normal sinus rhythm Normal ECG Confirmed by SHASHANK SHELBY, KIMBERLY ([id number]), supervising editor news reel ANTONIA PIERRE ([id number]) on 12/28/2021 1:13:56 PM Referred By: EDMUND Confirmed By:KIMBERLY ENCARNACION MD
--- NOTE | 2021-12-28 01:48 | EDS_ITS ---
HPI History of Present Illness Chief Complaint: Hypertension Informant: patient Onset/Context/Timing Onset: Today Context: Gradual Onset Timing: Intermittent Current Severity: Mild Maximum Severity: Mild Narrative Narrative: 86-year-old male history of hypertension, A. fib, DVT and being treated for chronic myelogenous leukemia. Recently his oncologist Dr. Medina increased his leukemia medication. Patient said he is nervous about that. Today felt fatigued. He checked his blood pressure several times and it went from 163/73 there was high as 185/92. He denies any headache, abdominal pain or chest pain. He was just concerned because the blood pressure is elevated and he thought he should come and be evaluated. He denies any other complaints. Prior similar symptoms: Yes Recent Illness/Hospitalization: No PFSH PFSH Home Medications aspirin 81 mg tablet,delayed release 81 mg PO DAILY@0800 06/10/19 [History Last Taken Unknown] cholecalciferol (vitamin D3) 25 mcg (1,000 unit) tablet 25 mcg PO DAILY 06/10/19 [History Last Taken Unknown] cyanocobalamin (vitamin B-12) 1,000 mcg/mL injection solution 1,000 mcg IJ .Q2MO 06/10/19 [History Last Taken Unknown] famotidine 20 mg tablet 20 mg PO BID 06/10/19 [History Last Taken 06/14/19 06:00 20 MG] lorazepam 1 mg tablet 0.5 mg PO Q6H PRN PRN Anxiety 06/10/19 [History Last Taken Unknown] propranolol 10 mg tablet 10 mg PO DAILY 06/10/19 [History Last Taken Unknown] verapamil 240 mg tablet,extended release 240 mg PO DAILY 06/10/19 [History Last Taken 06/14/19 06:00 240 MG] polyethylene glycol 3350 17 gram oral powder packet 17 gm PO QODAY 10/11/19 [History Last Taken Unknown] acetaminophen 325 mg tablet 650 mg PO Q6H PRN PRN Pain Score 1-10/Temp > 100.7 F 10/13/19 [Rx Last Taken Unknown] hydrochlorothiazide 12.5 mg capsule 12.5 mg DAILY 11/30/20 [History Last Taken Unknown] Allergy/AdvReac Type Severity Reaction Status Date / Time paroxetine [From Paxil] Allergy Other Verified 12/28/21 01:22 nilotinib [From Tasigna] AdvReac Other Verified 12/28/21 01:23 Social History Smoking Status: Former smoker ROS ROS ED ROS Narrative Fatigue. Review of Systems ROS Unobtainable: Denies due to encephalopathy Constitutional Constitutional ED: Denies chills or fever(s) Eyes Eyes: Denies blurry vision ENT ENT ED: Denies ear pain Cardiovascular Cardiovascular: Denies chest pain Respiratory/Chest Respiratory/Chest: Denies cough Gastrointestinal Gastrointestinal: Denies abdominal pain Genitourinary Genitourinary ED: Denies dysuria Musculoskeletal Musculoskeletal: Denies arthralgias Integumentary Denies abscess Neurologic Neurologic: Denies headache(s) Psychiatric Psychiatric: Reports anxiety Endocrine Endocrinology: Denies cold intolerance Hematologic/Lymphatic Hematologic/Lymphatic: Denies lymphadenopathy Allergic/Immunologic Allergic/Immunologic ED: Denies mouth swelling EXAM Physical Exam Narrative Exam Narrative: 86-year-old male no acute distress vital signs stable afebrile. Blood pressure is elevated at 181/80. He denies any other complaints. H EENT exam unremarkable. Neck nontender. No JVD. Lungs clear to auscultation bilaterally. Heart regular rhythm rate about 80 no murmur. Abdomen is soft nontender. Normal bowel sounds no peritoneal signs. Moving all 4 extremities. Neurologically is awake and alert with no focal motor deficits. Normal quality assurance monitor chassis strength. Normal dorsi and plantar flexion. Const Vital Signs: 12/28/21 01:19 12/28/21 01:19 12/28/21 01:39 Temperature 98.2 F Temperature Source Temporal Pulse Rate 83 Respiratory Rate 17 Respiratory Pattern Blood Pressure 181/80 H 181/82 H Blood Pressure Mean 113 115 Pulse Ox 92 Oxygen Delivery Method Room Air 12/28/21 01:45 Temperature Temperature Source Pulse Rate Respiratory Rate Respiratory Pattern Normal Blood Pressure Blood Pressure Mean Pulse Ox Oxygen Delivery Method Positive well nourished and well developed; Negative for cachectic, contractures or unkempt General Appearance ED: well developed; Negative for unkempt, cachectic or contractures Nutritional Appearance: Negative for cachectic HEENT Reports moist mucous membranes Negative for trauma or tenderness Eyes PERRL and EOMs intact bilaterally General Eye ED: Negative for pale conjunctiva or scleral icterus Neck no lymphadenopathy, supple and no JVD General: Negative for tenderness Lymph Lymphatic: Negative for other Chest Wall inspection of chest normal and palpation of chest normal Chest: Negative for other Resp normal respiratory effort and clear to auscultation bilaterally Effort and Inspection: Negative for retractions Auscultation: Negative for rales, rhonchi or wheezes Cardio regular rate, regular rhythm, S1 normal heart sound, S2 normal heart sound and no murmurs GI normal to inspection, nondistended, normoactive bowel sounds, non-tender, non- distended and no masses Inspection: Negative for abdominal distention Auscultation: normoactive bowel sounds Palpation: soft; Negative for tender, guarding or mass Back/Spine no CVA tenderness Extremity normal to inspection General Extremety ED: Negative for edema or tenderness General Extremity: Negative for edema Neuro oriented x3 Sensorium / Orientation: alert; Negative for orientation impaired, lethargic or stuporous Motor Exam: strength 5/5 throughout Psych mental status grossly normal Appearance: Negative for unkempt Attitude: No agitated Mood & Affect: anxious; Negative for depressed Skin no rashes or lesions noted and no wounds Rashes: No rashes noted Trauma: Negative for abrasion Wounds: Negative for wounds noted MDM MDM MDM Narrative Medical decision making narrative: 86-year-old male with acute on chronic hypertension. He has a normal exam. He had I discussed chronic treatment of hypertension. And that he does not need his blood pressure emergently lowered. He is having no signs of end organ damage or any acute other symptoms. A lot of this is brought on by his anxiety. He will be discharged home. Log his blood pressures and follow-up with his physicians to see if they need to adjust his medications. Rhythm Strip Rhythm Strip: Sinus Rhythm Rate: 82 Ectopy: None EKG Initial EKG: Attestation: I personally reviewed and interpreted this EKG as follows: Interpretation: Sinus Rhythm and No Acute Injury Pattern Comments: Normal sinus rhythm rate 82 no acute signs of WI or ischemia. Discharge Plan Triage Chief Complaint: Hypertension ED Provider: John Patino Dx/Rx/DC Orders Clinical Impression: HTN (hypertension), Chronic hypertension, History of leukemia Prescriptions: No Action aspirin 81 MG tablet 81 mg PO DAILY@0800 propranolol 10 MG tablet 10 mg PO DAILY famotidine 20 MG tablet 20 mg PO BID cyanocobalamin (vitamin B-12) 1,000 MCG/ML solution 1,000 mcg IJ .Q2MO verapamil 240 MG tablet extended release 240 mg PO DAILY lorazepam 1 MG tablet 0.5 mg PO Q6H PRN PRN (Reason: Anxiety) cholecalciferol (vitamin D3) 25 MCG tablet 25 mcg PO DAILY polyethylene glycol 3350 17 GM packet 17 gm PO QODAY acetaminophen 325 MG tablet 650 mg PO Q6H PRN PRN (Reason: Pain Score 1-10/Temp > 100.7 F) 0RF hydrochlorothiazide 12.5 mg capsule 12.5 mg DAILY Primary Care Provider: Alok Branch Referrals: Alok Branch MD [Primary Care Provider] - 1 Week Activity Restrictions/Additional Instructions: Take your normal 3 blood pressure medications as prescribed. I think a lot of the reason your blood pressure is elevated tonight is due to anxiety due to your medications being changed. At your current blood pressure readings we do not need to acutely lower your blood pressure. Log your blood pressures twice daily. Take these to your primary care physician in a week and see if they need to adjust your blood pressure medications or not. Also consider stress reduction like walking, exercise or reading to help decrea se your anxiety which also help decrease your blood pressure. Disposition Disposition: Home, Self Care
[2021-12-28 01:54] VITALS: BP 169/78
== END 2021-12-28 01:59 | disposition home or self-care (01) ==
PROVIDERS: Emergency Provider Emergency Medicine; PCP Family Medicine; Visit Provider Emergency Medicine
DX: I10 Essential (primary) hypertension (principal); Z87.891 Personal history of nicotine dependence; Z86.718 Personal history of other venous thrombosis and embolism
CPT/HCPCS: 93005; 99282

== ENCOUNTER 2022-05-30 22:37 | Emergency (ER) | payer MEDICARE, SELFPAY ==
[2022-05-30 22:37] VITALS: BP 149/59; PULSE 111; RESP 16; TEMP 36.8; O2SAT 97; BMI 27.7
--- NOTE | 2022-05-30 23:29 | EDS_ITS ---
HPI HPI - GI History of Present Illness Chief Complaint: Abd Pain Detail of Chief Complaint: Epigastric abdominal pain. Informant: patient Abdominal Pain/Flank Pain Onset: Today Context: Gradual Onset Timing: Continuous Quality: Aching and Burning Location: Epigastric Current Severity: Mild Maximum Severity: Mild Worsened by: Nothing Relieved by: Nothing Nausea/Vomiting/Emesis GI Symptom: Positive for Nausea; Negative for Vomiting Onset: Today Severity: Mild Diarrhea/Melena/Hematochezia GI Symptom: Negative for Diarrhea, Melena or Hematochezia Associated Symptoms Associated Symptoms: Negative for Dysuria, Frequency, Hematuria or Urgency Narrative Narrative: 86-year-old male history of CLL, hypertension, pulmonary emboli and A. fib. States that he ate around 2 PM. Around 5 PM after he took his Gleevec which he is on for CLL he had epigastric abdominal pain. Describes it as spasms. Has had it before but never been evaluated for it. She had some mild nausea no vo miting. No diarrhea or fever. No melena. No chest pain or shortness of breath. He took Pepcid without any significant relief. Previously had his gallbladder removed. Denies any right upper or right lower quadrant pain or abdominal distention. Prior similar symptoms: Yes Recent Illness/Hospitalization: No PFSH PFSH Home Medications aspirin 81 mg tablet,delayed release 81 mg PO DAILY@0800 06/10/19 [History Last Taken Unknown] cholecalciferol (vitamin D3) 25 mcg (1,000 unit) tablet 25 mcg PO DAILY 06/10/19 [History Last Taken Unknown] cyanocobalamin (vitamin B-12) 1,000 mcg/mL injection solution 1,000 mcg IJ .Q2MO 06/10/19 [History Last Taken Unknown] famotidine 20 mg tablet 20 mg PO BID 06/10/19 [History Last Taken 06/14/19 06:00 20 MG] lorazepam 1 mg tablet 0.5 mg PO Q6H PRN PRN Anxiety 06/10/19 [History Last Taken Unknown] propranolol 10 mg tablet 10 mg PO DAILY 06/10/19 [History Last Taken Unknown] verapamil 240 mg tablet,extended release 240 mg PO DAILY 06/10/19 [History Last Taken 06/14/19 06:00 240 MG] polyethylene glycol 3350 17 gram oral powder packet 17 gm PO QODAY 10/11/19 [History Last Taken Unknown] acetaminophen 325 mg tablet 650 mg PO Q6H PRN PRN Pain Score 1-10/Temp > 100.7 F 10/13/19 [Rx Last Taken Unknown] hydrochlorothiazide 12.5 mg capsule 12.5 mg DAILY 11/30/20 [History Last Taken Unknown] imatinib 400 mg tablet (Gleevec) 400 mg PO BID 05/30/22 [History Last Taken Unknown] Allergy/AdvReac Type Severity Reaction Status Date / Time paroxetine [From Paxil] Allergy Other Verified 05/30/22 22:39 nilotinib [From Tasigna] AdvReac Other Verified 05/30/22 22:39 Social History Smoking Status: Former smoker ROS ROS ED ROS Narrative Epigastric abdominal pain. Nausea. Constitutional Constitutional ED: Denies chills or fever(s) ENT ENT ED: Denies ear pain Cardiovascular Cardiovascular: Denies chest pain or palpitations Respiratory/Chest Respiratory/Chest: Denies cough or dyspnea Gastrointestinal Gastrointestinal: Reports abdominal pain and nausea; Denies constipation, diarrhea, melena or vomiting Genitourinary Genitourinary ED: Denies dysuria or hematuria Integumentary Denies abscess Neurologic Neurologic: Denies headache(s) Psychiatric Psychiatric: Denies anxiety Endocrine Endocrinology: Denies polydipsia Hematologic/Lymphatic Hematologic/Lymphatic: Denies easy bleeding Allergic/Immunologic Allergic/Immunologic ED: Denies mouth swelling or tongue swelling EXAM Physical Exam Narrative Exam Narrative: 86-year-old male no acute distress. Vital signs stable afebrile. Pulse ox 97% on room air no hypoxia. H EENT exam unremarkable. Moist mucous membranes. Neck nontender no lymphadenopathy. Lungs clear to auscultation bilaterally. Heart tachycardic rate about 100 no murmur. Abdomen soft nondistended. Normal bowel sounds no peritoneal signs. Both the right upper right lower quadrant unremarkable. No distention or obstruction. No pulsatile mass. Mild e pigastric tenderness. Moving all 4 extremities. Trace edema both lower extremities. Neurologically awake and alert with no focal motor deficits. Const Vital Signs: 05/30/22 22:37 Temperature 98.3 F Temperature Source Temporal Pulse Rate 111 H Respiratory Rate 16 Blood Pressure 149/59 H Blood Pressure Mean 89 Pulse Ox 97 Oxygen Delivery Method Room Air Positive well nourished and well developed; Negative for obese, cachectic, contractures or unkempt General Appearance ED: well developed and NAD; Negative for unkempt, cachectic, contractures or pallor Nutritional Appearance: Negative for cachectic or obese HEENT Reports moist mucous membranes; Denies dry mucous membranes normocephalic and atraumatic; Negative for trauma or tenderness Mouth ED: No dry mucous membranes Mouth: No dry mucous membranes Eyes PERRL and EOMs intact bilaterally General Eye ED: Negative for pale conjunctiva or scleral icterus Neck no lymphadenopathy, supple and no JVD General: Negative for tenderness Carotids: Negative for other Lymph Lymphatic: Negative for other Resp normal respiratory effort and clear to auscultation bilaterally Effort and Inspection: Negative for respiratory distress Auscultation: Negative for rales, rhonchi or wheezes Cardio Negative for regular rate Rate: tachycardic GI non-distended and no masses; Negative for non-tender Inspection: Negative for abdominal distention Auscultation: normoactive bowel sounds Palpation: soft and tender; Negative for guarding, rigid, hepatomegaly, splenomegaly, hernia, mass, pulsatile mass or rebound tenderness present Back/Spine no CVA tenderness General Back: Negative for CVA tenderness Cervical Spine: Negative for cervical spine tenderness Thoracic Spine / Upper Back: Negative for thoracic spinal tenderness Lumbar Spine / Lower Back: Negative for lumbar spinal tenderness Coccyx: Negative for other Extremity full ROM General Extremety ED: Yes edema; Negative for tenderness General Extremity: edema Neuro moves all extremities Sensorium / Orientation: alert, oriented to person, oriented to place and oriented to time; Negative for orientation impaired, confused, lethargic or stuporous Motor Exam: strength 5/5 throughout Psych mental status grossly normal and thought process normal Appearance: Negative for unkempt Attitude: No agitated Mood & Affect: Negative for depressed, anxious or tearful Skin no wounds General Skin Exam: Negative for jaundice or pallor Lesions: no lesions Rashes: no rashes Trauma: Negative for abrasion Nails: Negative for discolored MDM MDM MDM Narrative Medical decision making narrative: 86-year-old male with past medical history of CLL on Gleevec prior A. fib. Plan epigastric abdominal pain with nausea. He has mild tenderness. Prior cholecystectomy. Labs are being obtained. In holding he needs imaging. There is no signs of obstruction. I will Dicus any type of perforation. EKG will be obtained but I do not think this is cardiac in etiology. However it is epigastric. CBC, liver testing chemistries and lipase will be obtained. Differential include gastritis, reflux, ulcer, pancreatitis etc. He will be rosalio ated with GI cocktail and p.o. Protonix. However patient refused his medications due to the cancer medication he is taking. He states they well decrease the efficacy of that medication. Repeat exam patient doing well. His troponin EKG and chest x-ray were also unremarkable. His abdomen is benign after dose of morphine. He will be discharged home. I do not think he needs a CAT scan of his abdomen. There is no signs of obstruction nor any peritoneal signs. He will use his Pepcid at home. Follow-up with his doctor. Return if worse. He has had a prior cholecystectomy. Lab Data Attestation: I reviewed the patient's lab results. Lab results narrative: CBC shows white count 7.6. H&H 10.5 and 32.4. Platelets 286. Electrolytes show sodium 135 gap 7 normal BUN 18 creatinine 1.1. Liver enzymes are elevated bili with a total bilirubin of 2, AST 277. ALT of 203 and alk phos of 592. Li pase is normal at 171. Blood counts of the patient's baseline. Liver enzymes have been elevated similarly in the past. Chest x-ray unremarkable. Troponin normal at 25. Labs: Laboratory Results - last 24 hr 05/30/22 05/30/22 05/30/22 23:47 23:47 23:47 WBC 7.6 RBC 3.26 L Hgb 10.5 L Hct 32.4 L MCV 99.4 H MCH 32.2 H MCHC 32.4 RDW Std Deviation 51.3 H RDW Coeff of Jessica 14.0 Plt Count 286 MPV 9.3 Immature Gran % (Auto) 0.300 Neut % (Auto) 91.1 H Lymph % (Auto) 5.6 L [place] % (Auto) 2.8 Eos % (Auto) 0.1 Baso % (Auto) 0.1 Absolute Neuts (auto) 7.0 Absolute Lymphs (auto) 0.43 L Nucleated RBC % 0 Differential Comment SCANNED Sodium 135 L Potassium 3.6 Chloride 101 Carbon Dioxide 27.0 Anion Gap 7 BUN 18 Creatinine 1.11 Estim Creat Clear Calc 48.65 Est GFR (MDRD) Af Amer 81 Est GFR (MDRD) Non-Af 67 BUN/Creatinine Ratio 16.2 Glucose 186 H Calcium 8.4 L Total Bilirubin 2.00 H AST 277 H ALT 203 H Alkaline Phosphatase 592 H Troponin I High Sens 25 Total Protein 6.6 Albumin 3.5 Globulin 3.1 Albumin/Globulin Ratio 1.1 Lipase 171 Radiography Diagnostic Testing: Chest x-ray, portable, single view, interpreted by myself shows a very small left pleural effusion. Unremarkable cardiac silhouette mediastinum. Rhythm Strip Rhythm Strip: Sinus Tach Rate: 110 Ectopy: PVC(s) EKG Initial EKG: Attestation: I personally reviewed and interpreted this EKG as follows: Interpretation: No Acute Injury Pattern and Sinus Tachycardia Comments: Sinus tach cardiac with a rate of 110. Occasional PVCs. No acute [place] nor ischemia. Discharge Plan Triage Chief Complaint: Abd Pain ED Provider: John Patino Dx/Rx/DC Orders Clinical Impression: Abdominal pain, History of chronic lymphocytic leukemia, History of atrial fibrillation Instructions: Abdominal Pain Prescriptions: No Action aspirin 81 MG tablet 81 mg PO DAILY@0800 propranolol 10 MG tablet 10 mg PO DAILY famotidine 20 MG tablet 20 mg PO BID cyanocobalamin (vitamin B-12) 1,000 MCG/ML solution 1,000 mcg IJ .Q2MO verapamil 240 MG tablet extended release 240 mg PO DAILY lorazepam 1 MG tablet 0.5 mg PO Q6H PRN PRN (Reason: Anxiety) cholecalciferol (vitamin D3) 25 MCG tablet 25 mcg PO DAILY polyethylene glycol 3350 17 GM packet 17 gm PO QODAY acetaminophen 325 MG tablet 650 mg PO Q6H PRN PRN (Reason: Pain Score 1-10/Temp > 100.7 F) 0RF hydrochlorothiazide 12.5 mg capsule 12.5 mg DAILY imatinib [Gleevec] 400 mg Tablet 400 mg PO BID Primary Care Provider: Alok Branch Referrals: Xochitl Medina MD [Med Staff - Active Staff] - As soon as possible Alok Branch MD [Primary Care Provider] - As soon as possible Activity Restrictions/Additional Instructions: [place] as needed for pain. Use your Pepcid as needed. Follow-up with either Dr. Medina or your primary care provider. Return if feeling worse, vomiting or black or bloody stool. Disposition Disposition: Home, Self Care
[2022-05-31 00:07] LABS: Absolute Lymphocyte Count 0.43 X10^3/uL (0.83-4.51); Basophil# 0.01 X10^3/uL; Basophil% 0.1 % (0-1); Eosinophil# 0.01 X10^3/uL; Eosinophils% 0.1 % (0-5); Hematocrit 32.4 % (40-54); Hemoglobin 10.5 g/dL (13.0-16.5); Lymphocyte # 0.43 X10^3/ul (0.83-4.51); Lymphocyte % 5.6 % (19-41); Mean Corp Hgb Conc 32.4 g/dL (32-36); Mean Corpuscular Hgb 32.2 pg (27.0-32.0); Mean Corpuscular Volume 99.4 fL (80-94); Mean Platelet Vol. 9.3 fl (6.2-12.0); Monocyte# 0.21 X10^3/uL; Monocyte% 2.8 % (0-10); NRBC Flagged by Analyzer 0 % (0-5); Neutrophil # 6.95 X10^3/uL (2.7-7.7); Neutrophil % 91.1 % (47-70); POSITIVE DIFFERENTIAL YES; Platelet Count 286 K/mm3 (150-450); RBC Distribution Width SD 51.3 fl (35.1-43.9); Red Blood Count 3.26 M/mm3 (4.6-6.2); White Blood Count 7.6 K/mm3 (4.4-11.0)
[2022-05-31 00:09] LABS: Differential Indicated SCAN CRITERIA MET
[2022-05-31 00:20] LABS: ALB/GLOB Ratio 1.1 RATIO (0.9-2.4); AST(SGOT) 277 U/L (15-37); Alanine Aminotransfer ALT/SGPT 203 U/L (16-61); Albumin, Serum 3.5 g/dL (3.2-5.0); Alkaline Phosphatase 592 U/L (45-117); Anion Gap 7 (5-15); BUN 18 mg/dL (7-18); BUN/Creat Ratio 16.2 RATIO (10-20); Calcium,Total 8.4 mg/dL (8.5-10.1); Chloride 101 mmol/L (98-107); Creatinine, Serum 1.11 mg/dL (0.70-1.30); EST Glomerular Filtration Rate 67 mL/min (>60); Est Glom Filt Rate - Afr Amer 81 mL/min (>60); Estimated Creatinine Clearance 48.65 ml/min; Globulin 3.1 g/dL (2.2-4.2); Glucose 186 mg/dL (74-106); Lipase 171 U/L (73-393); Potassium 3.6 mmol/L (3.5-5.1); Protein, Total 6.6 g/dL (6.4-8.2); Sodium Level 135 mmol/L (136-145)
[2022-05-31 00:56] LABS: Differential Comment SCANNED
[2022-05-31] MEDS: Famotidine 20 MG Tablet 40 MG PO (01:59)
--- NOTE | 2022-05-31 02:03 | RAD_ITS ---
EXAM: XR CHEST, 1 VIEW CLINICAL INDICATION: cp TECHNIQUE: Frontal view of the chest. This report was created using [employer] report generation technology. COMPARISON: November 30, 2020 FINDINGS: LUNGS AND PLEURAL SPACES: Calcified granuloma at the periphery of the right lung base. Bilateral small pleural effusions versus pleural parenchymal scarring, unchanged from before. No pneumothorax. HEART: Top normal sized the cardiac silhouette for a portable examination. MEDIASTINUM: Central airways and mediastinal contour are unremarkable. BONES/JOINTS: No suspicious lytic or sclerotic lesions. SOFT TISSUES: Unremarkable. VASCULATURE: Atherosclerotic calcifications of the nonenlarged thoracic aortic arch. RAD/Chest 1 View (Portable) IMPRESSION: 1. Bilateral small pleural effusions versus pleural parenchymal scarring, unchanged from before. 2. Otherwise, no new or worsening disease. Electronically Signed: Kendall Parish MD at 3:26 EST ,
[2022-05-31 02:25] LABS: Troponin-I HS 25 pg/mL (3.0-78.0)
[2022-05-31] MEDS: Ondansetron 4 MG/2 ML Vial IV (02:44)
[2022-05-31] MEDS: Morphine 4 MG/ML Syringe IV (02:44)
[2022-05-31 03:26] VITALS: PULSE 62; RESP 16; O2SAT 98
[2022-05-31] MEDS: HYDROcodone Bitartrate/Apap 5/325 Tablet PO (03:31)
== END 2022-05-31 03:32 | disposition home or self-care (01) ==
PROVIDERS: Emergency Provider Emergency Medicine; PCP Family Medicine; Visit Provider Emergency Medicine
DX: R10.13 Epigastric pain (principal); I48.91 Unspecified atrial fibrillation; R11.2 Nausea with vomiting, unspecified; I10 Essential (primary) hypertension; Z90.49 Acquired absence of other specified parts of digestive tract; Z87.891 Personal history of nicotine dependence; Z85.6 Personal history of leukemia
CPT/HCPCS: 71045; 80053; 83690; 84484; 85025; 93005; 96374; 96375; 99284; A4216; J2405

== ENCOUNTER 2023-01-29 09:49 | Inpatient (IN) | payer MEDICARE, SELFPAY ==
[2023-01-29] VITALS (9 sets, daily range): BP systolic 121–146; BP diastolic 54–70; PULSE 81–102; RESP 18–24; TEMP 36.1–37.7; O2SAT 86–98; BMI 26.6; BMI 26.5
--- NOTE | 2023-01-29 10:41 | EKG12_ITS ---
Test Reason : SOB Blood Pressure : / mmHG Vent. Rate : 102 BPM Atrial Rate : 102 BPM P-R Int : 158 ms QRS Dur : 088 ms QT Int : 330 ms P-R-T Axes : 095 015 025 degrees QTc Int : 430 ms Sinus tachycardia with Premature ventricular complexes or Fusion complexes Low voltage QRS Nonspecific T wave abnormality Abnormal ECG Confirmed by SHASHANK SHELBY, KIMBERLY ([id number]), television news video editor SUSHILA GALAN ([id number]) on 02/01/2023 10:46:52 AM Referred By: GONZALES Confirmed By:KIMBERLY ENCARNACION MD
[2023-01-29 11:08] LABS: Absolute Lymphocyte Count 0.84 X10^3/uL (0.83-4.51); Absolute Neutrophil Count 6.3 X10^3/uL (2.0-7.7); Basophil# 0.01 X10^3/uL; Basophil% 0.1 % (0-1); Eosinophil# 0.01 X10^3/uL; Eosinophils% 0.1 % (0-5); Hematocrit 30.9 % (40-54); Hemoglobin 10.2 g/dL (13.0-16.5); Lymphocyte # 0.84 X10^3/ul (0.83-4.51); Lymphocyte % 10.7 % (19-41); Mean Corpuscular Hgb 31.4 pg (27.0-32.0); Mean Corpuscular Volume 95.1 fL (80-94); Mean Platelet Vol. 10.3 fl (6.2-12.0); Monocyte# 0.69 X10^3/uL; Monocyte% 8.8 % (0-10); NRBC Flagged by Analyzer 0 % (0-5); Neutrophil # 6.29 X10^3/uL (2.7-7.7); Platelet Count 247 K/mm3 (150-450); RBC Distribution Width CV 14.1 % (11.6-14.6); Red Blood Count 3.25 M/mm3 (4.6-6.2); White Blood Count 7.9 K/mm3 (4.4-11.0)
[2023-01-29] MEDS: Mag Hydrox/Al Hydrox/Simeth 30 ML UDC PO (11:12)
[2023-01-29] MEDS: Ondansetron 4 MG/2 ML Vial IV (11:12)
[2023-01-29 11:18] LABS: ALB/GLOB Ratio 0.7 RATIO (0.9-2.4); AST(SGOT) 19 U/L (15-37); Alanine Aminotransfer ALT/SGPT 17 U/L (16-61); Albumin, Serum 2.7 g/dL (3.2-5.0); Alkaline Phosphatase 67 U/L (45-117); Anion Gap 8 (5-15); BUN 23 mg/dL (7-18); BUN/Creat Ratio 17.7 RATIO (10-20); Chloride 104 mmol/L (98-107); EST Glomerular Filtration Rate 56 mL/min (>60); Est Glom Filt Rate - Afr Amer 67 mL/min (>60); Estimated Creatinine Clearance 40.79 ml/min; Globulin 3.9 g/dL (2.2-4.2); Glucose 179 mg/dL (74-106); Lipase 19 U/L (13-75); Potassium 3.2 mmol/L (3.5-5.1); Protein, Total 6.6 g/dL (6.4-8.2); Sodium Level 135 mmol/L (136-145); Troponin-I HS 26 pg/mL (3.0-78.0)
[2023-01-29 11:31] LABS: D-Dimer Quantitative (DVT/PE) 9.38 FEU/ug/m (0.27-0.49)
--- NOTE | 2023-01-29 11:37 | CT_ITS ---
HISTORY: chest pain. TECHNIQUE: CT angiogram of the chest was performed after the intravenous administration of 100 mL Isovue-370. Post-processing of the angiographic images was performed with multiplanar reformation and 3D reconstruction. Individualized dose optimization techniques were used for this CT. 1163 images. COMPARISON: XR 05/31/2022, CTA 08/11/2019. FINDINGS: CENTRAL AIRWAYS: Patent. LUNGS: New mild groundglass opacity in the right upper lobe anteriorly. Stable 8 mm spiculated nodule in the right upper lobe centrally. Calcified granuloma scarring in the right lower lobe. Mild dependent atelectasis in the right lower lobe. Moderate left upper lobe alveolar opacities with air bronchograms. Combination of atelectasis and alveolar opacities in the lingula and left lower lobe. PLEURA: Moderate right and moderate-large left pleural effusions. HEART/PERICARDIUM: Mild cardiomegaly with moderate pericardial effusion. PULMONARY ARTERIES: No filling defect. AORTA/VESSELS: No thoracic aortic aneurysm or dissection flap. This gliosis noted. MEDIASTINUM/CHRISSIE: Generalized mediastinal edema. Enlarged mediastinal lymph nodes measuring up to 1.3 x 1.9 cm prevascular and precarinal. Small calcified mediastinal lymph nodes also seen.. OSSEOUS STRUCTURES: Degenerative change. Generalized subcutaneous cutaneous edema. UPPER ABDOMEN: IVC filter noted. Peripherally enhancing mass in the liver again seen. Mild ascites. CT/CTA Chest W/WO Contrast IMPRESSION: Moderate-large left and moderate right pleural effusions. Bilateral pneumonia and atelectasis, most confluent in the left upper and lower lobes. Recommend follow-up to resolution. Stable spiculated 8 mm right upper lobe pulmonary nodule. Mild mediastinal lymphadenopathy, possibly reactive. Anasarca with moderate pericardial effusion and mild ascites. No evidence of pulmonary embolism. Electronically Signed: Audrey Syed MD at 12:49 EDT ,
--- NOTE | 2023-01-29 13:37 | NURSING ---
MED SURG VASQUEZ HYPOXIC RESP FAILURE
--- NOTE | 2023-01-29 13:56 | ED.VIS.DYS ---
HPI History of Present Illness Chief Complaint: Shortness of Breath Narrative Narrative: 87-year-old male presenting with chief complaint of dyspepsia which has had for days. He has a history of this and is being treated at home. His primary care physician has him on pantoprazole which does not seem to help. Patient describes the pain is burning and cramping as well as tight in the retrosternal and epigastric region. Patient does admit to feeling short of breath which is worsened recently. He states he walks short distances that he gets short of breath. 3-year-old female past medical history of hypertension he does have generalized weakness. Patient does have history of CML and is on Gleevec for this. [facility] Medical History CML (chronic myelocytic leukemia) Home Medications cholecalciferol (vitamin D3) 25 mcg (1,000 unit) tablet 25 mcg PO DAILY 06/10/19 [History Last Taken Unknown] cyanocobalamin (vitamin B-12) 1,000 mcg/mL injection solution 1,000 mcg IJ .Q2MO 06/10/19 [History Last Taken Unknown] lorazepam 1 mg tablet 0.5 mg PO Q6H PRN PRN Anxiety 06/10/19 [History Last Taken Unknown] propranolol 10 mg tablet 10 mg PO DAILY PRN hypertension 06/10/19 [History Last Taken Unknown] verapamil 240 mg tablet,extended release 240 mg PO DAILY 06/10/19 [History Last Taken 06/14/19 06:00 240 MG] hydrochlorothiazide 12.5 mg capsule 12.5 mg PO DAILY 11/30/20 [History Last Taken Unknown] imatinib 400 mg tablet (Gleevec) 600 mg PO DAILY 05/30/22 [History Last Taken Unknown] pantoprazole 20 mg tablet,delayed release 20 mg PO Q12H indigestion 01/29/23 [History Last Taken Unknown] ursodiol 300 mg capsule 300 mg PO DAILY 01/29/23 [History Last Taken Unknown] Allergy/AdvReac Type Severity Reaction Status Date / Time paroxetine [From Paxil] Allergy Other Verified 05/30/22 22:39 nilotinib [From Tasigna] AdvReac Other Verified 05/30/22 22:39 Social History Smoking Status: Former smoker ROS ROS ED Constitutional Constitutional ED: Denies chills, fever(s) or sweats Eyes Eyes: Denies blurry vision or change in vision ENT ENT ED: Denies ear pain or sore throat Cardiovascular Cardiovascular: Reports chest pain; Denies palpitations or racing heartbeat Respiratory/Chest Respiratory/Chest: Reports dyspnea and dyspnea on exertion; Denies cough or sputum Gastrointestinal Gastrointestinal: Reports abdominal pain; Denies constipation, diarrhea, nausea or vomiting Genitourinary Genitourinary ED: Denies dysuria, hematuria or urinary frequency Musculoskeletal Musculoskeletal: Denies arthralgias, myalgias or neck pain Integumentary Denies abscess, Abrasions or rash Neurologic Neurologic: Denies headache(s), paresthesias or weakness Psychiatric Psychiatric: Denies anxiety, depression, suicidal ideation or suicidal thoughts Endocrine Endocrinology: Denies polydipsia or polyuria EXAM Physical Exam Const Vital Signs: 01/29/23 09:50 01/29/23 10:42 01/29/23 11:14 Temperature 97 F L 97 F L Temperature Source Temporal Temporal Pulse Rate 102 H 81 Respiratory Rate 18 18 Respiratory Effort Short of Breath Blood Pressure 142/63 H 135/61 H Blood Pressure Mean 89 85 Pulse Ox 98 93 Oxygen Delivery Method Room Air Room Air 01/29/23 13:15 Temperature 98.7 F Temperature Source Oral Pulse Rate 99 Respiratory Rate 24 H Respiratory Effort Blood Pressure 144/70 H Blood Pressure Mean 94 Pulse Ox 92 Oxygen Delivery Method Room Air Positive well nourished General Appearance ED: NAD HEENT Reports dry mucous membranes Mouth ED: Yes dry mucous membranes Mouth: dry mucous membranes Eyes PERRL and EOMs intact bilaterally Neck no lymphadenopathy and supple Resp normal respiratory effort Auscultation: diminished lung sounds bilateral lower; Negative for rales or rhonchi Cardio regular rate and regular rhythm GI Palpation: tender epigastric Extremity General Extremety ED: Yes edema General Extremity: edema Neuro oriented x3 and CN's II-XII intact bilaterally Sensorium / Orientation: alert Motor Exam: general weakness Psych mental status grossly normal Skin no wounds MDM MDM MDM Narrative Medical decision making narrative: 87-year-old male presenting with dyspnea and dyspepsia. He is on Protonix for the dyspepsia Improving. He is given a GI cocktail as his abdominal exam is benign otherwise. I did obtain a cardiac work-up which included a CBC and CMP as well as a lipase. EKG was obtained to assess for ischemia and a troponin was obtained. D-dimer was obtained to assess for PE as the patient has a history. Alcohol CBC does not show leukocytosis his white blood cell count is 7.9. Hemoglobin stable at 10.2. Platelets are 247. Creatinine 1.30. Electrolytes unremarkable with exception of a potassium of 5.2. High-sensitivity troponin is 26. Unable to pain at BNP at this time because the lab states that she is broken. D-dimer was elevated at 9.38-the patient had a CTA of the chest which does not show any PEs or dissection but does show concern for a mass in the right upper lobe which is spiculated and about 8 mm with mediastinal adenopathy. It also shows bilateral pleural effusions and pericardial effusion. This shows anasarca as well as ascites. Patient counseled on all findings. I tried to ambulate him but his pulse ox drops to 85% on room air and therefore I spoke with the hospitalist for admission. Impression: 1. CHF 2. Hypoxic respiratory 3. Dyspepsia Lab Data Attestation: I reviewed the patient's lab results. Labs: Laboratory Results - last 24 hr 01/29/23 10:50 WBC 7.9 RBC 3.25 L Hgb 10.2 L Hct 30.9 L MCV 95.1 H MCH 31.4 MCHC 33.0 RDW Std Deviation 50.0 H RDW Coeff of Jessica 14.1 Plt Count 247 MPV 10.3 Immature Gran % (Auto) 0.300 Neut % (Auto) 80.0 H Lymph % (Auto) 10.7 L [place] % (Auto) 8.8 Eos % (Auto) 0.1 Baso % (Auto) 0.1 Absolute Neuts (auto) 6.3 Absolute Lymphs (auto) 0.84 Nucleated RBC % 0 D-Dimer Quant (PE/DVT) 9.38 H* Sodium 135 L Potassium 3.2 L Chloride 104 Carbon Dioxide 23.0 Anion Gap 8 BUN 23 H Creatinine 1.30 Estim Creat Clear Calc 40.79 Est GFR (MDRD) Af Amer 67 Est GFR (MDRD) Non-Af 56 L BUN/Creatinine Ratio 17.7 Glucose 179 H Calcium 8.0 L Total Bilirubin 1.20 H AST 19 ALT 17 Alkaline Phosphatase 67 Troponin I High Sens 26 Total Protein 6.6 Albumin 2.7 L Globulin 3.9 Albumin/Globulin Ratio 0.7 L Lipase 19 Radiography Diagnostic Testing: Clinical Impression(s) from Imaging Studies Chest CTA 01/29/23 11:37 IMPRESSION: Moderate-large left and moderate right pleural effusions. Bilateral pneumonia and atelectasis, most confluent in the left upper and lower lobes. Recommend follow-up to resolution. Stable spiculated 8 mm right upper lobe pulmonary nodule. Mild mediastinal lymphadenopathy, possibly reactive. Anasarca with moderate pericardial effusion and mild ascites. No evidence of pulmonary embolism. Electronically Signed: Audrey Syed MD at 12:49 EDT , Discharge Plan Triage Chief Complaint: Shortness of Breath ED Provider: Davide Pacheco Dx/Rx/DC Orders Prescriptions: No Action propranolol 10 MG tablet 10 mg PO DAILY PRN (Reason: hypertension) cyanocobalamin (vitamin B-12) 1,000 MCG/ML solution 1,000 mcg IJ .Q2MO verapamil 240 MG tablet extended release 240 mg PO DAILY lorazepam 1 MG tablet 0.5 mg PO Q6H PRN PRN (Reason: Anxiety) cholecalciferol (vitamin D3) 25 MCG tablet 25 mcg PO DAILY hydrochlorothiazide 12.5 mg capsule 12.5 mg PO DAILY imatinib [Gleevec] 400 mg Tablet 600 mg PO DAILY pantoprazole 20 mg tablet,delayed release (DR/EC) 20 mg PO Q12H Patient Comments: TAKE 1 TABLET BY MOUTH EVERY DAY before BREAKFAST. Take ONE-HALF hour before BREAKFAST. ursodiol 300 mg capsule 300 mg PO DAILY Primary Care Provider: Alok Branch Referrals: Alok Branch MD [Primary Care Provider] -
--- NOTE | 2023-01-29 14:56 | PCM.HP.STD ---
HPI - General General Date of Admission: 01/29/23 HPI Narrative ABHISHEK BAILEY, is a 87 M who presents to the hospital with increasing shortness of breath. He states that he started feeling short of breath around night into Monday morning and as it was not getting better presented to the hospital. Does appear that he has bilateral pleural effusions with a greater pleural effusion on the left. He has had this before that improved with diuretics. CTA of the chest was obtained secondary to an elevated D-dimer that showed a spiculated mass 8 mm in the right upper lobe with mediastinal lymphadenopathy. 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 [facility] Medical History CML (chronic myelocytic leukemia) Home Medications cholecalciferol (vitamin D3) 25 mcg (1,000 unit) tablet 25 mcg PO DAILY 06/10/19 [History Last Taken Unknown] cyanocobalamin (vitamin B-12) 1,000 mcg/mL injection solution 1,000 mcg IJ .Q2MO 06/10/19 [History Last Taken Unknown] lorazepam 1 mg tablet 0.5 mg PO Q6H PRN PRN Anxiety 06/10/19 [History Last Taken Unknown] propranolol 10 mg tablet 10 mg PO DAILY PRN hypertension 06/10/19 [History Last Taken Unknown] verapamil 240 mg tablet,extended release 240 mg PO DAILY 06/10/19 [History Last Taken 06/14/19 06:00 240 MG] hydrochlorothiazide 12.5 mg capsule 12.5 mg PO DAILY 11/30/20 [History Last Taken Unknown] imatinib 400 mg tablet (Gleevec) 600 mg PO DAILY 05/30/22 [History Last Taken Unknown] pantoprazole 20 mg tablet,delayed release 20 mg PO Q12H indigestion 01/29/23 [History Last Taken Unknown] ursodiol 300 mg capsule 300 mg PO DAILY 01/29/23 [History Last Taken Unknown] Allergy/AdvReac Type Severity Reaction Status Date / Time paroxetine [From Paxil] Allergy Other Verified 05/30/22 22:39 nilotinib [From Tasigna] AdvReac Other Verified 05/30/22 22:39 Family History (Updated 01/29/23 @ 14:[address] Dylan Phelps MD) Other Heart disease Surgical History (Updated 01/29/23 @ 14:[address] Dylan Phelps MD) History of appendectomy Social History Smoking Status: Former smoker ROS Constitutional Constitutional: Denies chills, fatigue, fever(s) or malaise Eyes Eyes: Denies blurry vision ENT HEENT: Denies headache(s) or nasal discharge Cardiovascular Cardiovascular: Denies chest pain, dyspnea on exertion or syncope Respiratory/Chest Respiratory/Chest: Reports shortness of breath at rest and shortness of breath with exertion; Denies cough Gastrointestinal Gastrointestinal: Denies constipation, diarrhea, nausea or vomiting Genitourinary Genitourinary: Denies dysuria Neurologic Neurologic: Denies focal weakness, numbness or tremor(s) Psychiatric Psychiatric: Denies anxiety or depression Vital Signs Vital Signs Vital Signs: 01/29/23 09:50 01/29/23 10:42 01/29/23 11:14 Temperature 97 F L 97 F L Temperature Source Temporal Temporal Pulse Rate 102 H 81 Respiratory Rate 18 18 Respiratory Effort Short of Breath Blood Pressure 142/63 H 135/61 H Blood Pressure Mean 89 85 Pulse Ox 98 93 Oxygen Delivery Method Room Air Room Air 01/29/23 13:15 01/29/23 14:03 Temperature 98.7 F 98.7 F Temperature Source Oral Oral Pulse Rate 99 99 Respiratory Rate 24 H 24 H Respiratory Effort Blood Pressure 144/70 H 144/70 H Blood Pressure Mean 94 94 Pulse Ox 92 92 Oxygen Delivery Method Room Air Room Air Weight Weight: 180 lb Body Mass Index (BMI) 26.6 Physical Exam Narrative General: Alert, Oriented x3, Cooperative, mild respiratory distress HEENT: Atraumatic, PERRLA, EOMI, Normocephalic Oral: Moist Mucosa Neck: Supple, No JVD Lungs: Diminished left greater than right, Normal air movement, No rhonchi, No wheeze, No rales, tachypneic, 3 word sentences Cardiovascular: Regular rate, Regular Rhythm, Normal S1, Normal S2, No murmurs Abdomen: Soft, Non Tender, Non-Distended, No Hepato-splenomegaly Extremities: No edema, Capillary Refill Less than 3 Seconds Skin: No rashes, No breakdown Musculoskeletal: No Tenderness to Palpation of Joints or Extremities Neurological: Cranial nerves II-XII grossly intact, Motor Exam 5/5 strength throughout, Sensory exam intact to light touch and pain Psych/Mental Status: Normal Affect, Appropriate Results Lab / Micro Data 01/29/23 10:50 01/29/23 10:50 Labs: Laboratory Results - last 24 hr 01/29/23 10:50: WBC 7.9, RBC 3.25 L, Hgb 10.2 L, Hct 30.9 L, MCV 95.1 H, MCH 31.4, MCHC 33.0, RDW Std Deviation 50.0 H, RDW Coeff of Jessica 14.1, Plt Count 247, MPV 10.3, Immature Gran % (Auto) 0.300, Neut % (Auto) 80.0 H, Lymph % (Auto) 10.7 L, Kerr % (Auto) 8.8, Eos % (Auto) 0.1, Baso % (Auto) 0.1, Absolute Neuts (auto) 6.3, Absolute Lymphs (auto) 0.84, Nucleated RBC % 0, D-Dimer Quant (PE/DVT) 9.38 H*, Sodium 135 L, Potassium 3.2 L, Chloride 104, Carbon Dioxide 23.0, Anion Gap 8, BUN 23 H, Creatinine 1.30, Estim Creat Clear Calc 40.79, Est GFR (MDRD) Af Amer 67, Est GFR (MDRD) Non-Af 56 L, BUN/Creatinine Ratio 17.7, Glucose 179 H, Calcium 8.0 L, Total Bilirubin 1.20 H, AST 19, ALT 17, Alkaline Phosphatase 67, Troponin I High Sens 26, Total Protein 6.6, Albumin 2.7 L, Globulin 3.9, Albumin/Globulin Ratio 0.7 L, Lipase 19 Radiology Impression Chest CTA 01/29/23 11:37 IMPRESSION: Moderate-large left and moderate right pleural effusions. Bilateral pneumonia and atelectasis, most confluent in the left upper and lower lobes. Recommend follow-up to resolution. Stable spiculated 8 mm right upper lobe pulmonary nodule. Mild mediastinal lymphadenopathy, possibly reactive. Anasarca with moderate pericardial effusion and mild ascites. No evidence of pulmonary embolism. Electronically Signed: Audrey Syed MD at 12:49 EDT , Assessment & Plan Assessment/Plan (1) Pleural effusion: (2) Dyspnea: QUALIFIERS: Dyspnea type: dyspnea on exertion Qualified Code(s): R06.00 - Dyspnea, unspecified PLAN: Plan 1. Respiratory distress with hypoxia during exertion due to bilateral pleural effusions of unknown etiology/spiculated lesion ? He has had this before where it resolved with Lasix ? We will obtain a thoracentesis and initiate on Lasix if there is no improvement by Monday ? If we do proceed with thoracentesis we will obtain lab studies for further clarification of etiology ? While resting in bed he does have some dyspnea with retractions and tachypnea though he is not requiring oxygen however when he did ambulate he dropped to 85% ? She does have an 8 mm spiculated lesion in his right lung that was read as stable, he does see [facility] oncology will refer to them as outpatient for follow-up 2. HTN ? Blood pressures are currently stable ? Can resume all of his home medications 3. CML ? He is in remission tolerating the Gleevac states that he used to be on a medication and that had caused some heart failure that resolved when he stopped it DVT: Heparin 76 minutes was spent on direct patient care, including documentation as well as chart review and collaboration with colleagues Charges/Coding Visit Charges Inpatient E&M: 71163 Init Hosp L3
[2023-01-29] MEDS: 0.9% Saline Lock 10 ML Syringe IV ×2 (16:27→21:00)
[2023-01-29] MEDS: Furosemide 40 MG/4 ML Vial IV (16:27)
[2023-01-29] MEDS: Heparin Injection (Vial) 5,000 UNIT/ML VIAL 5000 UNIT SC (21:00)
[2023-01-29] MEDS: Pantoprazole Sodium 20 MG Tablet PO (21:00)
[2023-01-30] VITALS (11 sets, daily range): BP systolic 108–145; BP diastolic 55–66; PULSE 88–95; RESP 16–20; TEMP 36.7–37; O2SAT 86–97
[2023-01-30 06:31] LABS: Absolute Lymphocyte Count 1.52 X10^3/uL (0.83-4.51); Absolute Neutrophil Count 5.2 X10^3/uL (2.0-7.7); Basophil# 0.02 X10^3/uL; Basophil% 0.3 % (0-1); Eosinophil# 0.04 X10^3/uL; Eosinophils% 0.5 % (0-5); Hematocrit 27.3 % (40-54); Hemoglobin 8.9 g/dL (13.0-16.5); Lymphocyte # 1.52 X10^3/ul (0.83-4.51); Lymphocyte % 20.3 % (19-41); Mean Corp Hgb Conc 32.6 g/dL (32-36); Mean Corpuscular Volume 95.1 fL (80-94); Mean Platelet Vol. 10.4 fl (6.2-12.0); Monocyte# 0.72 X10^3/uL; Monocyte% 9.6 % (0-10); NRBC Flagged by Analyzer 0 % (0-5); Neutrophil # 5.18 X10^3/uL (2.7-7.7); Platelet Count 253 K/mm3 (150-450); RBC Distribution Width CV 13.9 % (11.6-14.6); RBC Distribution Width SD 48.3 fl (35.1-43.9); Red Blood Count 2.87 M/mm3 (4.6-6.2); White Blood Count 7.5 K/mm3 (4.4-11.0)
[2023-01-30 07:41] LABS: Anion Gap 6 (5-15); BUN 17 mg/dL (7-18); BUN/Creat Ratio 27.2 RATIO (10-20); Calcium,Total 8.4 mg/dL (8.5-10.1); Chloride 114 mmol/L (98-107); Creatinine, Serum 0.62 mg/dL (0.70-1.30); EST Glomerular Filtration Rate 129 mL/min (>60); Est Glom Filt Rate - Afr Amer 157 mL/min (>60); Estimated Creatinine Clearance 53.03 ml/min; Glucose 90 mg/dL (74-106); Potassium 3.4 mmol/L (3.5-5.1); Sodium Level 145 mmol/L (136-145)
[2023-01-30] MEDS: Potassium Chloride Oral Tablet 20 MEQ 60 MEQ PO (08:38)
[2023-01-30] MEDS: Verapamil SR 240 MG Tablet PO (08:39)
[2023-01-30] MEDS: hydroCHLOROthiazide 12.5mg 12.5 MG PO (08:39)
[2023-01-30] MEDS: Pantoprazole Sodium 20 MG Tablet PO ×2 (08:40→21:18)
[2023-01-30] MEDS: Furosemide 40 MG/4 ML Vial IV (08:40)
[2023-01-30] MEDS: Ursodiol 250 MG Tablet PO (08:40)
[2023-01-30] MEDS: Heparin Injection (Vial) 5,000 UNIT/ML VIAL 5000 UNIT SC ×2 (10:00→21:18)
--- NOTE | 2023-01-30 10:48 | PCM.PN.HOSP ---
Subjective Subjective Doing well, no issues overnight. Slight improvement in the shortness of breath with the Lasix Objective Data Objective Data Vital Signs: Vital Signs Temp Pulse Resp BP Pulse Ox O2 Del Method O2 Flow Rate 98.0 F 94 20 H 145/66 H 95 Nasal Cannula 1 01/30/23 08:18 01/30/23 08:18 01/30/23 08:19 01/30/23 08:18 01/30/23 08:19 01/30/23 08:19 01/30/23 08:19 Oxygen Flow Rate (L/min) 1 Oxygen Delivery Method Nasal Cannula Weight: 179 lb 14.355 oz Body Mass Index (BMI) 26.5 Intake & Output: Intake and Output for Last 24 Hours 01/29/23 01/30/23 01/31/23 03:59 03:59 03:59 Output Total 2825 / 2825 600 / 600 Balance -2825 / -2825 -600 / -600 Lab / Micro Data 01/30/23 05:56 01/30/23 05:56 Labs: Laboratory Results - last 24 hr 01/29/23 10:50: WBC 7.9, RBC 3.25 L, Hgb 10.2 L, Hct 30.9 L, MCV 95.1 H, MCH 31.4, MCHC 33.0, RDW Std Deviation 50.0 H, RDW Coeff of Jessica 14.1, Plt Count 247, MPV 10.3, Immature Gran % (Auto) 0.300, Neut % (Auto) 80.0 H, Lymph % (Auto) 10.7 L, [place] % (Auto) 8.8, Eos % (Auto) 0.1, Baso % (Auto) 0.1, Absolute Neuts (auto) 6.3, Absolute Lymphs (auto) 0.84, Nucleated RBC % 0, D-Dimer Quant (PE/DVT) 9.38 H*, Sodium 135 L, Potassium 3.2 L, Chloride 104, Carbon Dioxide 23.0, Anion Gap 8, BUN 23 H, Creatinine 1.30, Estim Creat Clear Calc 40.79, Est GFR (MDRD) Af Amer 67, Est GFR (MDRD) Non-Af 56 L, BUN/Creatinine Ratio 17.7, Glucose 179 H, Calcium 8.0 L, Total Bilirubin 1.20 H, AST 19, ALT 17, Alkaline Phosphatase 67, Troponin I High Sens 26, Total Protein 6.6, Albumin 2.7 L, Globulin 3.9, Albumin/Globulin Ratio 0.7 L, Lipase 19 01/30/23 05:56: WBC 7.5, RBC 2.87 L, Hgb 8.9 L, Hct 27.3 L, MCV 95.1 H, MCH 31.0, MCHC 32.6, RDW Std Deviation 48.3 H, RDW Coeff of Jessica 13.9, Plt Count 253, MPV 10.4, Immature Gran % (Auto) 0.300, Neut % (Auto) 69.0, Lymph % (Auto) 20.3, [place] % (Auto) 9.6, Eos % (Auto) 0.5, Baso % (Auto) 0.3, Absolute Neuts (auto) 5.2, Absolute Lymphs (auto) 1.52, Nucleated RBC % 0, Sodium 145, Potassium 3.4 L, Chloride 114 H, Carbon Dioxide 25.0, Anion Gap 6, BUN 17, Creatinine 0.62 L, Estim Creat Clear Calc 53.03, Est GFR (MDRD) Af Amer 157, Est GFR (MDRD) Non-Af 129, BUN/Creatinine Ratio 27.2 H, Glucose 90, Calcium 8.4 L Radiography Diagnostic Testing: Radiology Impression Chest CTA 01/29/23 11:37 IMPRESSION: Moderate-large left and moderate right pleural effusions. Bilateral pneumonia and atelectasis, most confluent in the left upper and lower lobes. Recommend follow-up to resolution. Stable spiculated 8 mm right upper lobe pulmonary nodule. Mild mediastinal lymphadenopathy, possibly reactive. Anasarca with moderate pericardial effusion and mild ascites. No evidence of pulmonary embolism. Electronically Signed: Audrey Syed MD at 12:49 EDT , Physical Exam Narrative General: Alert, Oriented x3, Cooperative, mild respiratory distress HEENT: Atraumatic, PERRLA, EOMI, Normocephalic Oral: Moist Mucosa Neck: Supple, No JVD Lungs: Diminished left greater than right, Normal air movement, No rhonchi, No wheeze, No rales, tachypneic, 3 word sentences Cardiovascular: Regular rate, Regular Rhythm, Normal S1, Normal S2, No murmurs Abdomen: Soft, Non Tender, Non-Distended, No Hepato-splenomegaly Extremities: No edema, Capillary Refill Less than 3 Seconds Skin: No rashes, No breakdown Musculoskeletal: No Tenderness to Palpation of Joints or Extremities Neurological: Cranial nerves II-XII grossly intact, Motor Exam 5/5 strength throughout, Sensory exam intact to light touch and pain Psych/Mental Status: Normal Affect, Appropriate Assessment & Plan Assessment/Plan (1) Pleural effusion: (2) Dyspnea: QUALIFIERS: Dyspnea type: dyspnea on exertion Qualified Code(s): R06.00 - Dyspnea, unspecified PLAN: Plan 1. Respiratory distress with hypoxia during exertion due to bilateral pleural effusions of unknown etiology/spiculated lesion ? He has had this before where it resolved with Lasix ? We will obtain a thoracentesis and initiate on Lasix if there is no improvement by Monday ? We will obtain a chest x-ray tomorrow morning to see what progress we have made with diuresis, he has had about 3.4 L out ? If we do proceed with thoracentesis we will obtain lab studies for further clarification of etiology ? He does have an 8 mm spiculated lesion in his right lung that was read as stable, he does see [facility] oncology will refer to them as outpatient for follow-up 2. HTN ? Blood pressures are currently stable ? Can resume all of his home medications 3. CML ? He is in remission tolerating the Gleevac states that he used to be on a medication and that had caused some heart failure that resolved when he stopped it DVT: Heparin Charges/Coding Visit Charges Inpatient E&M: 61976 Subs Hosp L2
[2023-01-31] VITALS (8 sets, daily range): BP systolic 102–142; BP diastolic 39–67; PULSE 83–102; RESP 16–18; TEMP 36.9–38.7; O2SAT 93–97
--- NOTE | 2023-01-31 | FLU_PTH ---
PATIENT: ABHISHEK BAILEY LOC: MT3 U#:[id number] AGE/SX: 87/M ROOM: [facility] RE01/29/[address]: Dr. Dylan Phelps MD : 1935 BED: 1 DIS: 02/01/2023 SPEC #: [id number] RECD: 02/01/23 08:31 STATUS: DAYNA HAMPTONMarylou #: [id number] SHANDA: 01/31/23 00:[address]: Dylan Phelps DEPT: CYTOLOGY RECD BY: Gentry Coelho ENTERED: 02/01/23 08:31 SP TYPE: Fluid OTHR DR: Dr. Alok Branch MD Tissues: THORACIC FLUID Procedures: Special Stain Group II Surgery Specimen Level IV Cytospin Fluid HEADER OPERATION: Thoracentesis left chest PRE-OP DIAGNOSIS: Left pleural effusion TISSUE SUBMITTED: Thoracentesis fluid for cytology DIAGNOSIS CYTOLOGY Thoracentesis fluid for cytology (cytospin and cell block): Negative for malignant cells. SARA:albina 02/02/2023 CYTOLOGY STUDY Slides are reviewed. CYTOLOGY GROSS Received is 90 ml of cloudy yellow fluid labeled with the patient's name and and designated per the requisition as thoracentesis. Submitted for cytology preparation including cell block. / albina 02/01/2023 TC:5 CPT: 26238, 78659
--- NOTE | 2023-01-31 05:55 | RAD_ITS ---
STUDY: X-RAY CHEST REASON FOR EXAM: Male, 87 years old. Progress of diuresis for pleural effusion TECHNIQUE: PA and lateral views of the chest. COMPARISON: Comparison is made with prior study dated May 31, 2022. FINDINGS: Difference of left upper and left lower lobe infiltrates with a small left pleural effusion. Blunting of the right costophrenic angle. Normal size heart. Normal mediastinum and maryana. Normal visualized pulmonary arteries. There is atherosclerotic calcification of the aortic arch with tortuosity. There are diffuse degenerative changes of the visualized thoracic spine. Mild dextroscoliosis. Normal visualized ribs, clavicles, and shoulders. A filter is seen in the inferior vena cava. RAD/Chest PA and Lateral IMPRESSION: Left pleural effusion with infiltration in the left upper and left lower lobes. Electronically Signed: Sherwin Aaron MD at 10:17 EDT ,
[2023-01-31] MEDS: LORazepam 1 MG Tablet 0.5 MG PO ×2 (05:58→21:26)
[2023-01-31 06:27] LABS: Absolute Neutrophil Count 5.7 X10^3/uL (2.0-7.7); Basophil# 0.02 X10^3/uL; Basophil% 0.2 % (0-1); Eosinophil# 0.08 X10^3/uL; Eosinophils% 0.9 % (0-5); Hematocrit 28.5 % (40-54); Hemoglobin 9.2 g/dL (13.0-16.5); Lymphocyte % 26.2 % (19-41); Mean Corp Hgb Conc 32.3 g/dL (32-36); Mean Corpuscular Hgb 30.7 pg (27.0-32.0); Mean Platelet Vol. 10.3 fl (6.2-12.0); Monocyte# 0.95 X10^3/uL; Monocyte% 10.4 % (0-10); NRBC Flagged by Analyzer 0 % (0-5); Neutrophil # 5.68 X10^3/uL (2.7-7.7); Neutrophil % 61.9 % (47-70); Platelet Count 286 K/mm3 (150-450); RBC Distribution Width CV 13.7 % (11.6-14.6); RBC Distribution Width SD 47.4 fl (35.1-43.9); White Blood Count 9.2 K/mm3 (4.4-11.0)
[2023-01-31 07:16] LABS: Anion Gap 5 (5-15); BUN 24 mg/dL (7-18); BUN/Creat Ratio 20.5 RATIO (10-20); Calcium,Total 8.3 mg/dL (8.5-10.1); Chloride 101 mmol/L (98-107); Creatinine, Serum 1.17 mg/dL (0.70-1.30); EST Glomerular Filtration Rate 63 mL/min (>60); Est Glom Filt Rate - Afr Amer 76 mL/min (>60); Estimated Creatinine Clearance 45.32 ml/min; Glucose 102 mg/dL (74-106); Potassium 3.6 mmol/L (3.5-5.1); Sodium Level 135 mmol/L (136-145)
[2023-01-31] MEDS: Pantoprazole Sodium 20 MG Tablet PO ×2 (08:28→21:27)
[2023-01-31] MEDS: Verapamil SR 240 MG Tablet PO (08:28)
[2023-01-31] MEDS: Ursodiol 250 MG Tablet PO (08:28)
[2023-01-31] MEDS: hydroCHLOROthiazide 12.5mg 12.5 MG PO (08:28)
[2023-01-31] MEDS: 0.9% Saline Lock 10 ML Syringe IV (08:31)
--- NOTE | 2023-01-31 08:32 | PN.HOSP_ITS ---
Subjective Subjective Doing well, feels little bit better though he did require the addition of oxygen overnight while he was sleeping. Objective Data Objective Data Vital Signs: Vital Signs Temp Pulse Resp BP Pulse Ox O2 Del Method O2 Flow Rate 98.8 F 96 18 136/60 H 96 Nasal Cannula 2 01/31/23 08:20 01/31/23 08:20 01/31/23 08:20 01/31/23 08:20 01/31/23 08:25 01/31/23 08:25 01/31/23 08:25 Oxygen Flow Rate (L/min) 2 Oxygen Delivery Method Nasal Cannula Weight: 179 lb 14.355 oz Body Mass Index (BMI) 26.5 Intake & Output: Intake and Output for Last 24 Hours 01/30/23 01/31/23 02/01/23 03:59 03:59 03:59 Intake Total 570 / 570 Output Total 2825 / 2825 2575 / 2575 675 / 675 Balance -2825 / -2825 -2004 / -2004 -675 / -675 Lab / Micro Data 01/31/23 06:00 01/31/23 06:00 Labs: Laboratory Results - last 24 hr 01/31/23 06:00: WBC 9.2, RBC 3.00 L, Hgb 9.2 L, Hct 28.5 L, MCV 95.0 H, MCH 30.7, MCHC 32.3, RDW Std Deviation 47.4 H, RDW Coeff of Jessica 13.7, Plt Count 286, MPV 10.3, Immature Gran % (Auto) 0.400, Neut % (Auto) 61.9, Lymph % (Auto) 26.2, [place] % (Auto) 10.4 H, Eos % (Auto) 0.9, Baso % (Auto) 0.2, Absolute Neuts (auto) 5.7, Absolute Lymphs (auto) 2.40, Nucleated RBC % 0, Sodium 135 L, Potassium 3.6, Chloride 101, Carbon Dioxide 29.0, Anion Gap 5, BUN 24 H, Creatinine 1.17, Estim Creat Clear Calc 45.32, Est GFR (MDRD) Af Amer 76, Est GFR (MDRD) Non-Af 63, BUN/Creatinine Ratio 20.5 H, Glucose 102, Calcium 8.3 L Physical Exam Narrative General: Alert, Oriented x3, Cooperative, no acute distress HEENT: Atraumatic, PERRLA, EOMI, Normocephalic Oral: Moist Mucosa Neck: Supple, No JVD Lungs: Diminished left greater than right, Normal air movement, No rhonchi, No wheeze, rales, 3 word sentences Cardiovascular: Regular rate, Regular Rhythm, Normal S1, Normal S2, No murmurs Abdomen: Soft, Non Tender, Non-Distended, No Hepato-splenomegaly Extremities: No edema, Capillary Refill Less than 3 Seconds Skin: No rashes, No breakdown Musculoskeletal: No Tenderness to Palpation of Joints or Extremities Neurological: Cranial nerves II-XII grossly intact, Motor Exam 5/5 strength throughout, Sensory exam intact to light touch and pain Psych/Mental Status: Normal Affect, Appropriate Assessment & Plan Assessment/Plan (1) Pleural effusion: (2) Dyspnea: QUALIFIERS: Dyspnea type: dyspnea on exertion Qualified Code(s): R06.00 - Dyspnea, unspecified PLAN: Plan 1. Respiratory distress with hypoxia during exertion due to bilateral pleural effusions of unknown etiology/spiculated lesion ? He has had this before where it resolved with Lasix ? We will obtain a thoracentesis today unfortunately the chest x-ray this morning was not done ? If we do proceed with thoracentesis we will obtain lab studies for further clarification of etiology ? He does have an 8 mm spiculated lesion in his right lung that was read as stable, he does see [facility] oncology will refer to them as outpatient for follow-up 2. HTN ? Blood pressures are currently stable ? Can resume all of his home medications 3. CML ? He is in remission tolerating the Gleevac states that he used to be on a medication and that had caused some heart failure that resolved when he stopped it DVT: Heparin Charges/Coding Visit Charges Inpatient E&M: 46430 Subs Hosp L2
[2023-01-31 08:34] LABS: International Normalized Ratio 1.2; Prothrombin Time (Protime)PT. 15.5 SECONDS (11.7-14.9)
[2023-01-31 08:35] LABS: Partial Thromboplast Time 34.6 Seconds (24.1-36.2)
--- NOTE | 2023-01-31 10:08 | CASEMGMT ---
VENESSA PARKER Assessment: Face to Face with pt for initial transition planning/care coordination assessment. RN ELENA introduced self and role at [facility], pt voices understanding and consents to assessment. Pt is A/O x4 and answers all questions appropriately at this time. Pt sitting in bed in no distress. Care providers, pharmacy, and demographics verified/updated. Admitting Dx: bilat pleural effusions PCP:Sarina Specialists:[facility] onc; [facility] onc at [facility] Insurance: [employer] Prescription Benefit: yes LNOK: Cindy Patel, Living Arrangements: Pt lives with in a two story home with 4 steps to enter. Pt reports he is I in ADL's and denies concerns at home. Transportation: Pt drives self and denies concerns with transportation. DME/HHC/SNF: Pt has a cane at home, denies previous HHC or SNF stays. Pt states no concerns with going home at time of dc. Pt states no further concerns/needs. CM to follow. Advised pt to ask CM if any further question/concerns/needs arise, voices understanding. Pt Goal: Home Plan: Home
[2023-01-31] MEDS: Lidocaine 2% (20 ml mdv) 20 ML Vial INFILT (13:42)
--- NOTE | 2023-01-31 14:00 | RAD_ITS ---
STUDY: X-RAY CHEST REASON FOR EXAM: Male, 87 years old. Post thoracentesis -- portable TECHNIQUE: AP inspiration and expiration views. COMPARISON: Comparison is made with prior study dated January 31, 2023 earlier today. FINDINGS: The patient is status post left thoracentesis. No evidence of pneumothorax. RAD/Chest Insp/Exp 2 View IMPRESSION: Status post left thoracentesis. No evidence of pneumothorax. Electronically Signed: Sherwin Aaron MD at 14:15 EDT ,
[2023-01-31 14:15] LABS: Cytology, Body Fluid / CSF SEE PATHOLOGY REPORT
--- NOTE | 2023-01-31 14:30 | US_ITS ---
PROCEDURE: ULTRASOUND GUIDED THORACENTESIS. DATE: January 31, 2023. INDICATION: Male, 87 years old. Left pleural effusion. PHYSICIAN: Sherwin Aaron M.D. PROCEDURE: The risks, benefits, and alternatives to the procedure were explained to the patient. The specific risks of bleeding, infection, and pneumothorax requiring chest tube insertion were discussed and accepted. Written informed consent was obtained. Ultrasonographic evaluation of the left lower pleural space was carried out. An adequate pocket was identified. The patient was placed in the sitting, upright position. The overlying skin was prepped and draped in sterile fashion. 1% lidocaine was administered subcutaneously for local anesthesia. Under ultrasound guidance, a 5 Serbian thoracentesis needle/catheter system was advanced into the left posterior lower pleural fluid collection. Approximately 1730 mL of blanca-colored fluid was drained. The catheter was removed, and a sterile dressing was applied. A specimen was collected and sent to the laboratory for analysis, as requested by the referring clinician. The patient tolerated the procedure well. A chest x-ray was ordered. US/Thoracentesis W US IMPRESSION: Ultrasound-guided left thoracentesis. Electronically Signed: Sherwin Aaron MD at 14:24 EDT ,
[2023-01-31 14:39] LABS: Body Fluid Mononuclear WBC # 0.516 10^3/uL; Body Fluid Mononuclear WBC % 67.5 %; Body Fluid Polynuclear WBC # 0.248 10^3/uL; Body Fluid Polynuclear WBC % 32.5 %; Body Fluid Total Cells Counted 0.845 10^3/ul; White Blood Count/Body Fluid 0.764 10^3/uL
[2023-01-31 14:44] LABS: Appearance/Body Fluid SL CLDY; Auto B Fluid Analyzer BKGD Ct COUNTS W/IN LIMITS (W/IN LIMITS); Color/Body Fluid YELLOW; Source- Body Fluid THORACENTESIS
--- NOTE | 2023-01-31 14:45 | CASEMGMT ---
Social Work SW spoke with pt regarding advance directives. Pt states he has completed a living will and health care POA naming his Cindy Patel. Pt is aware documents are not on file and SW requested they be brought in for scanning into the medical record. RICARDO Arrington
[2023-01-31 15:10] LABS: Red Cell Count/Body Fluid 205 /mm3
[2023-01-31 15:23] LABS: Lymphocytes 37 %; Mesothelial Cells 7 %; Monocytes 10 %; Neutrophil (Segs) 46 %
[2023-01-31 15:24] LABS: Body Fluid QC Type(s) BF5Q
[2023-01-31 16:31] LABS: BNP,B-Type NATRIURETIC PEPTIDE 366.1 pg/mL (0-100)
[2023-01-31 17:45] LABS: ALB/GLOB Ratio 0.7 RATIO (0.9-2.4); Globulin 3.8 g/dL (2.2-4.2); LDH 163 U/L (87-241); Protein, Total 6.3 g/dL (6.4-8.2)
[2023-01-31 18:54] LABS: Glucose, Body Fluid 132 mg/dL (40-70); LDH,Body Fluid 90 Units/L (Not Establ.); Protein, Body Fluid 3.2 g/dL (Not Establ.)
[2023-01-31] MEDS: Heparin Injection (Vial) 5,000 UNIT/ML VIAL 5000 UNIT SC (21:27)
[2023-01-31] MEDS: Acetaminophen 325 MG Tablet 650 MG PO (21:28)
[2023-02-01 03:24] VITALS: BP 129/61; PULSE 93; RESP 20; TEMP 37.4; O2SAT 93
[2023-02-01 06:49] LABS: Anion Gap 5 (5-15); BUN 23 mg/dL (7-18); BUN/Creat Ratio 22.3 RATIO (10-20); Calcium,Total 7.9 mg/dL (8.5-10.1); Chloride 104 mmol/L (98-107); Creatinine, Serum 1.03 mg/dL (0.70-1.30); EST Glomerular Filtration Rate 73 mL/min (>60); Est Glom Filt Rate - Afr Amer 88 mL/min (>60); Estimated Creatinine Clearance 51.48 ml/min; Glucose 121 mg/dL (74-106); Potassium 3.3 mmol/L (3.5-5.1); Sodium Level 138 mmol/L (136-145)
--- NOTE | 2023-02-01 09:17 | DCINST_ITS ---
Discharge Instructions Diet Discharge Diet: Low fat / Low cholesterol Activity Discharge Activity: Return to Normal Activity Dressing / Incision Call your doctor if you observe: Fever of 101 or Higher, Shortness of breath, Dizziness, Fainting spells, Swelling in the ankles, Chest pain and Increased palpitations (irregular heartbeat) Follow Up Care Test Results: Test results from this visit will be discussed in further detail at your follow- up appointment, if applicable. Discharge Plan Admission Admit Date/Time: 01/29/23 14:32 Attending Provider: Dylan Phelps Primary Care Provider: Alok Branch Instructions Patient Instructions: HUBERT RN Thoracentesis Dc Discharge Orders/Prescriptions Prescriptions: New levofloxacin 750 mg Tablet 750 mg PO DAILY@0600 Qty: 6 0RF Continued propranolol 10 MG tablet 10 mg PO DAILY PRN (Reason: hypertension) cyanocobalamin (vitamin B-12) 1,000 MCG/ML solution 1,000 mcg IJ .Q2MO verapamil 240 MG tablet extended release 240 mg PO DAILY lorazepam 1 MG tablet 0.5 mg PO Q6H PRN PRN (Reason: Anxiety) cholecalciferol (vitamin D3) 25 MCG tablet 25 mcg PO DAILY hydrochlorothiazide 12.5 mg capsule 12.5 mg PO DAILY imatinib [Gleevec] 400 mg Tablet 600 mg PO DAILY pantoprazole 20 mg tablet,delayed release (DR/EC) 20 mg PO Q12H Patient Comments: TAKE 1 TABLET BY MOUTH EVERY DAY before BREAKFAST. Take ONE-HALF hour before BREAKFAST. ursodiol 300 mg capsule 300 mg PO DAILY Referrals / Follow Up: Alok Branch MD [Primary Care Provider] - Within 1 Week Disposition Disposition (needs filled in before D/C Order can be placed): Home, Self Care
[2023-02-01 09:19] VITALS: O2SAT 94; O2SAT 95
--- NOTE | 2023-02-01 09:19 | PCM.DC.SUM ---
Providers Date of Admission: 01/29/23 Primary Care Physician: Dr. Alok Branch MD Reason For Visit: BL PLEURAL EFFUSIONS Diagnosis Discharge Diagnosis (1) Pleural effusion: Status: Acute Code(s): J90 - Pleural effusion, not elsewhere classified (2) Dyspnea: Status: Acute Code(s): R06.00 - Dyspnea, unspecified Qualifiers: Dyspnea type: dyspnea on exertion Qualified Code(s): R06.00 - Dyspnea, unspecified Medications at Discharge Home Medications cholecalciferol (vitamin D3) 25 mcg (1,000 unit) tablet 25 mcg PO DAILY 06/10/19 cyanocobalamin (vitamin B-12) 1,000 mcg/mL injection solution 1,000 mcg IJ .Q2MO 06/10/19 lorazepam 1 mg tablet 0.5 mg PO Q6H PRN PRN Anxiety 06/10/19 propranolol 10 mg tablet 10 mg PO DAILY PRN hypertension 06/10/19 verapamil 240 mg tablet,extended release 240 mg PO DAILY 06/10/19 hydrochlorothiazide 12.5 mg capsule 12.5 mg PO DAILY 11/30/20 imatinib 400 mg tablet (Gleevec) 600 mg PO DAILY 05/30/22 pantoprazole 20 mg tablet,delayed release 20 mg PO Q12H indigestion 01/29/23 ursodiol 300 mg capsule 300 mg PO DAILY 01/29/23 levofloxacin 750 mg tablet 750 mg PO DAILY@0600 #6 tabs 02/01/23 Hospital Course Operations None Procedures Thoracentesis Summary of Care Provided Minutes Spent on Discharge: 38 Hospital Course: Per HPI: ABHISHEK BAILEY, is a 87 M who presents to the hospital with increasing shortness of breath. He states that he started feeling short of breath around night into Monday morning and as it was not getting better presented to the hospital. Does appear that he has bilateral pleural effusions with a greater pleural effusion on the left. He has had this before that improved with diuretics. CTA of the chest was obtained secondary to an elevated D-dimer that showed a spiculated mass 8 mm in the right upper lobe with mediastinal lymphadenopathy. 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 Hospital Course: 1. Respiratory distress with hypoxia during exertion due to bilateral pleural effusions from pneumonia and Gleevac/spiculated lesion right upper lobe?87-year-old male presented to the hospital with progressive shortness of breath. He was found to have a large pleural effusion on the left and he had a thoracentesis with almost 2 L out. Fluid studies demonstrated exudative effusion that appears to be consistent with the pneumonia seen on the initial CT scan. I also discussed the case with his oncologist who said that Gleevec can lead to pleural effusions as well. He is feeling much better today and I discussed with him the need to treat his pneumonia, he was given a dose of Levaquin here in the hospital and will be discharged with 6 more days of Levaquin. I discussed with him the plan to go home today and he expressed understanding of the risk benefits of going home and would like to go today. Of note the spiculated lesion on his right upper lobe was present on the CT scan in September 2019 and it is unchanged, and oncology is aware. 2. Hypertension, CML, GERD are chronic medical conditions which complicate his care. His home medications were continued where appropriate Physical Exam Narrative General: Alert, Oriented x3, Cooperative, no acute distress HEENT: Atraumatic, PERRLA, EOMI, Normocephalic Oral: Moist Mucosa Neck: Supple, No JVD Lungs: Diminished, Normal air movement, No rhonchi, No wheeze, no rales Cardiovascular: Regular rate, Regular Rhythm, Normal S1, Normal S2, No murmurs Abdomen: Soft, Non Tender, Non-Distended, No Hepato-splenomegaly Extremities: No edema, Capillary Refill Less than 3 Seconds Skin: No rashes, No breakdown Musculoskeletal: No Tenderness to Palpation of Joints or Extremities Neurological: Cranial nerves II-XII grossly intact, Motor Exam 5/5 strength throughout, Sensory exam intact to light touch and pain Psych/Mental Status: Normal Affect, Appropriate Weight / BMI Weight Weight: 179 lb 14.355 oz Body Mass Index (BMI) 26.5 ABG / Lab / Microbiology Data 01/31/23 06:00 02/01/23 06:00 Laboratory: Laboratory Results - last 24 hr 01/29/23 10:50: B-Natriuretic Peptide 366.1 H 01/31/23 06:00: Lactate Dehydrogenase 163, Total Protein 6.3 L, Globulin 3.8, Albumin/Globulin Ratio 0.7 L 01/31/23 13:40: Fluid Source THORACENTESIS, Fluid Color YELLOW, Fluid Appearance SL CLDY, Fluid WBC 0.764, Fluid RBC 205, Fluid Tot Cell Count 0.845, Fld Polynuclear WBCs # 0.248, Fld Polynuclear WBCs % 32.5, Fluid Mononuclear WBCs 0.516, Fld Mononuclear WBCs % 67.5, Fluid Neutrophils 46, Fluid Lymphocytes 37, Fluid Monocytes 10, Fld Mesothelial Cells 7, Fl Pathologist Comment May follow, Fluid Glucose 132 H, Fluid Total Protein 3.2, Fluid LDH 90, Fluid Comment 2 SEE COMMENT 02/01/23 06:00: Sodium 138, Potassium 3.3 L, Chloride 104, Carbon Dioxide 29.0, Anion Gap 5, BUN 23 H, Creatinine 1.03, Estim Creat Clear Calc 51.48, Est GFR (MDRD) Af Amer 88, Est GFR (MDRD) Non-Af 73, BUN/Creatinine Ratio 22.3 H, Glucose 121 H, Calcium 7.9 L Radiography Diagnostic Testing: Radiology Impression Chest X-Ray 01/31/23 05:55 IMPRESSION: Left pleural effusion with infiltration in the left upper and left lower lobes. Electronically Signed: Sherwin Aaron MD at 10:17 EDT , Chest X-Ray 01/31/23 14:00 IMPRESSION: Status post left thoracentesis. No evidence of pneumothorax. Electronically Signed: Sherwin Aaron MD at 14:15 EDT , Thoracentesis Ultrasound 01/31/23 14:30 IMPRESSION: Ultrasound-guided left thoracentesis. Electronically Signed: Sherwin Aaron MD at 14:24 EDT , D/C Instructions Discharge Diet: Low fat / Low cholesterol Call your doctor if you observe: Fever of 101 or Higher, Shortness of breath, Dizziness, Fainting spells, Swelling in the ankles, Chest pain and Increased palpitations (irregular heartbeat) Meaningful Use Info Meaningful Use Diagnoses (Choose all that apply): None applicable Discharge Plan Admission Admit Date/Time: 01/29/23 14:32 Attending Provider: Dylan Phelps Primary Care Provider: Alok Branch Instructions Patient Instructions: HUBERT RN Thoracentesis Dc Discharge Orders/Prescriptions Prescriptions: New levofloxacin 750 mg Tablet 750 mg PO DAILY@0600 Qty: 6 0RF Continued propranolol 10 MG tablet 10 mg PO DAILY PRN (Reason: hypertension) cyanocobalamin (vitamin B-12) 1,000 MCG/ML solution 1,000 mcg IJ .Q2MO verapamil 240 MG tablet extended release 240 mg PO DAILY lorazepam 1 MG tablet 0.5 mg PO Q6H PRN PRN (Reason: Anxiety) cholecalciferol (vitamin D3) 25 MCG tablet 25 mcg PO DAILY hydrochlorothiazide 12.5 mg capsule 12.5 mg PO DAILY imatinib [Gleevec] 400 mg Tablet 600 mg PO DAILY pantoprazole 20 mg tablet,delayed release (DR/EC) 20 mg PO Q12H Patient Comments: TAKE 1 TABLET BY MOUTH EVERY DAY before BREAKFAST. Take ONE-HALF hour before BREAKFAST. ursodiol 300 mg capsule 300 mg PO DAILY Referrals / Follow Up: Alok Branch MD [Primary Care Provider] - Within 1 Week Disposition Disposition (needs filled in before D/C Order can be placed): Home, Self Care Charges/Coding Visit Charges Inpatient E&M: 67150 Disch Hosp >30min
[2023-02-01] MEDS: hydroCHLOROthiazide 12.5mg 12.5 MG PO (09:20)
[2023-02-01] MEDS: Verapamil SR 240 MG Tablet PO (09:20)
[2023-02-01] MEDS: Ursodiol 250 MG Tablet PO (09:20)
[2023-02-01] MEDS: levoFLOXacin 750 MG Tablet PO (09:20)
[2023-02-01] MEDS: Pantoprazole Sodium 20 MG Tablet PO (09:20)
[2023-02-01] MEDS: Heparin Injection (Vial) 5,000 UNIT/ML VIAL 5000 UNIT SC (09:20)
--- NOTE | 2023-02-01 09:30 | CASEMGMT ---
Pt does not qualify for home oxygen.
[2023-02-01 09:45] VITALS: BP 125/55; PULSE 104; RESP 18; TEMP 36.9; O2SAT 95
[2023-02-02 09:48] LABS: Pathologist Comment/Body Fluid Reviewed
== END 2023-02-01 12:00 | disposition home or self-care (01) | DRG 194 ==
LOC: ED 11:42 → MS3 15:02
PROVIDERS: Admitting Provider Family Medicine; Emergency Provider Student in an Organized Health Care Education/Training Program; PCP Family Medicine; Visit Provider Family Medicine
DX: J18.9 Pneumonia, unspecified organism (principal); J91.8 Pleural effusion in other conditions classified elsewhere; C92.11 Chronic myeloid leukemia, BCR/ABL-positive, in remission; I11.0 Hypertensive heart disease with heart failure; K21.9 Gastro-esophageal reflux disease without esophagitis; R06.03 Acute respiratory distress; I50.9 Heart failure, unspecified; Z87.891 Personal history of nicotine dependence; R91.8 Other nonspecific abnormal finding of lung field
CPT/HCPCS: 32555; 36415; 71046; 71275; 80048; 80053; 82945; 83615; 83690; 83880; 84156; 84157; 84484; 85025; 85379; 85610; 85730; 88108; 88305; 88313; 89050; 93005; 94668; 99284; Q9967; A4216; J1940; J2405

== ENCOUNTER 2023-11-18 00:01 | Inpatient (IN) | payer MEDICARE, SELFPAY ==
[2023-11-18] VITALS (29 sets, daily range): BP systolic 131–193; BP diastolic 58–122; PULSE 87–104; RESP 12–37; TEMP 36.4–37.2; O2SAT 76–100; BMI 28.0; BMI 25.4
--- NOTE | 2023-11-18 00:23 | EKG12_ITS ---
Test Reason : CP Blood Pressure : / mmHG Vent. Rate : 099 BPM Atrial Rate : 102 BPM P-R Int : 000 ms QRS Dur : 088 ms QT Int : 526 ms P-R-T Axes : 000 014 -05 degrees QTc Int : 675 ms Critical Test Result: Long QTc NSR WITH MULTIFOCAL PVC'S Low voltage QRS Cannot rule out Septal infarct , age undetermined Prolonged QT Abnormal ECG Confirmed by Cali Swain ([id number]), supervising editor news reel SUSHILA GALAN ([id number]) on 11/21/2023 8:26:36 AM Referred By: MIRANDA Confirmed By:Cali Swain
[2023-11-18 00:44] LABS: Allen Test Positive; Base Excess 4 mmol/L (-2 to +2); Bicarbonate 28.9 mmol/L (22-26); Blood Gas Specimen Type ART; Comment 14/8 12 35%; Mode Not entered; O2 Delivery Device BiPAP; PO2 71 mmHG (75-100); SITE R Radial; SO2 94 % (95-99); Total Carbon Dioxide 30 mmol/L; pCO2 45.3 mmHg (35-45); pH 7.41 (7.35-7.45)
--- NOTE | 2023-11-18 01:00 | RAD_ITS ---
EXAM: XR CHEST, 1 VIEW CLINICAL INDICATION: dyspnea TECHNIQUE: Frontal view of the chest. COMPARISON: 01/31/2023. FINDINGS: LUNGS AND PLEURAL SPACES: Central consolidations bilaterally likely due to pulmonary edema. Moderate bilateral pleural effusions. No pneumothorax. HEART: Enlarged cardiac silhouette that may be due to cardiomegaly and/or pericardial effusion. MEDIASTINUM: Central airways and mediastinal contour are unremarkable. BONES/JOINTS: Unremarkable. No acute fracture. SOFT TISSUES: Unremarkable. RAD/Chest 1 View (Portable) IMPRESSION: Cardiomegaly and/or pericardial effusion, moderate bilateral pleural effusions, and central consolidation likely due to pulmonary edema. Probable CHF. Electronically Signed: Cali Nielsen MD at 2:04 EDT ,
[2023-11-18 01:02] LABS: Absolute Lymphocyte Count 1.62 X10^3/uL (0.83-4.51); Absolute Neutrophil Count 7.9 X10^3/uL (2.0-7.7); Basophil# 0.03 X10^3/uL; Basophil% 0.3 % (0-1); Eosinophil# 0.03 X10^3/uL; Eosinophils% 0.3 % (0-5); Hematocrit 34.1 % (40-54); Hemoglobin 10.8 g/dL (13.0-16.5); Lymphocyte # 1.62 X10^3/ul (0.83-4.51); Lymphocyte % 15.8 % (19-41); Mean Corp Hgb Conc 31.7 g/dL (32-36); Mean Corpuscular Hgb 30.9 pg (27.0-32.0); Mean Corpuscular Volume 97.7 fL (80-94); Mean Platelet Vol. 11.8 fl (6.2-12.0); Monocyte# 0.69 X10^3/uL; Monocyte% 6.7 % (0-10); NRBC Flagged by Analyzer 0 % (0-5); Neutrophil # 7.87 X10^3/uL (2.7-7.7); Neutrophil % 76.5 % (47-70); Platelet Count 242 K/mm3 (150-450); RBC Distribution Width CV 14.4 % (11.6-14.6); RBC Distribution Width SD 51.3 fl (35.1-43.9); Red Blood Count 3.49 M/mm3 (4.6-6.2); White Blood Count 10.3 K/mm3 (4.4-11.0)
[2023-11-18] MEDS: Nitroglycerin SL (ED/IMG/CATH) 0.4 MG TABLET SL (01:08)
[2023-11-18] MEDS: LORazepam 2 MG/ML Syringe 0.5 MG IV (01:09)
[2023-11-18] MEDS: Furosemide 40 MG/4 ML Vial IV ×3 (01:10→17:51)
[2023-11-18 01:37] LABS: Anion Gap 9 (5-15); BUN 12 mg/dL (7-18); BUN/Creat Ratio 13.8 RATIO (10-20); Calcium,Total 8.1 mg/dL (8.5-10.1); Chloride 99 mmol/L (98-107); Creatinine, Serum 0.87 mg/dL (0.70-1.30); EST Glomerular Filtration Rate 88 mL/min (>60); Est Glom Filt Rate - Afr Amer 107 mL/min (>60); Estimated Creatinine Clearance 63.86 ml/min; Glucose 148 mg/dL (74-106); Magnesium 1.9 mg/dL (1.6-2.6); Potassium 3.5 mmol/L (3.5-5.1); Sodium Level 134 mmol/L (136-145)
[2023-11-18 02:10] LABS: International Normalized Ratio 1.4; Prothrombin Time (Protime)PT. 16.8 SECONDS (11.7-14.9)
[2023-11-18 02:11] LABS: BNP,B-Type NATRIURETIC PEPTIDE 778.4 pg/mL (0-100); Partial Thromboplast Time 32.6 Seconds (24.1-36.2)
--- NOTE | 2023-11-18 02:23 | CT_ITS ---
EXAM: CT ANGIOGRAPHY CHEST WITHOUT AND WITH INTRAVENOUS CONTRAST CLINICAL INDICATION: pericardial effusion TECHNIQUE: Helically acquired angiography images were obtained of the chest without and with intravenous contrast. This CT exam was performed using one or more of the following dose reduction techniques: automated exposure control, adjustment of the mA and/or kV according to patient size, and/or use of iterative reconstruction technique. MIP reconstructed images were created and reviewed. CONTRAST: 100 cc of Isovue-370 IV. RADIATION DOSE: CTDIvol = 9.48 mGy, DLP = 488.21 mGy-cm COMPARISON: 01/29/2023. FINDINGS: PULMONARY ARTERIES: Unremarkable. Normal in caliber. No evidence of pulmonary embolism. AORTA: Unremarkable. Normal in caliber. No evidence of dissection. GREAT VESSELS OF AORTIC ARCH: Unremarkable. Normal in caliber. No evidence of dissection. LUNGS AND PLEURAL SPACES: Diffuse thickening of the interlobular septa likely due to interstitial edema. Probable CHF. Large bilateral pleural effusions increased since previous exam. 9 mm right upper lobe nodule that is increased in size compared with the previous examination. Atelectasis of the lower lobes bilaterally. No pneumothorax. HEART: Moderate pericardial effusion mildly increased since previous examination. Mild cardiomegaly. Coronary artery calcifications. MEDIASTINUM: Unremarkable. No mediastinal or hilar adenopathy. Esophagus is unremarkable. No hiatal hernia. THYROID: Unremarkable. No thyroid lesions. BONES/JOINTS: Unremarkable. No suspicious lytic or blastic abnormality. CT/CTA Chest W/WO Contrast IMPRESSION: 1. No pulmonary embolism or aortic dissection. 2. Moderate pericardial effusion mildly increased since previous examination. 3. Diffuse thickening of the interlobular septa likely due to interstitial edema. Probable CHF. 4. Mild cardiomegaly. 5. Large bilateral pleural effusions increased since previous exam. 6. 9 mm right upper lobe nodule that is increased in size compared with the previous examination. Consider PET/CT or biopsy. 7. Coronary artery disease. 8. Atelectasis of the lower lobes bilaterally. Electronically Signed: Cali Nielsen MD at 4:05 EDT ,
--- NOTE | 2023-11-18 02:25 | PCM.HP.STD ---
[facility] Date of Admission: 11/18/23 Date of Service: 11/18/23 Chief Complaint: SOB. [facility] Narrative ABHISHEK BAILEY, is a 88 M with a past medical history of essential hypertension, hyperlipidemia, watch overweight; BMI 28.1 this admission, chronic atrial fibrillation; not on anticoagulation due to GI bleed, history of CML; previously on Gleevec for ~6 years (with recent change to to Tasigna) with known moderate pericardial effusion with LVEF ~65% (04/2023) followed by Dr. Persaud of the oncology service, history of bilateral pleural effusions; with previous thoracentesis, pulmonary hypertension, history of mitral regurgitation, history of Left lower extremity DVT; with history of IVC filter placement, CKD; stage IIIa, DUNG, depression, hiatal hernia, GERD; with history of PUD and partial gastrectomy, osteoarthritis and DNR-CC CODE STATUS; with no intubation who presents to [facility] ER complaining of shortness of breath. Mr. Bailey reports his symptoms began approximately 1 day prior to admission with a gradual onset of dyspnea on exertion with an acute worsening of his symptoms when he tried to lay down flat to sleep this evening. He activated EMS and was immediately started on BiPAP in the ER for acute respiratory distress. He states he would like to transfer to [facility] for further care and he wants to have thoracentesis and pericardiocentesis if his cardiothoracic surgeon / Dr. Alan recommends they be done; for which he was told to come back if his symptoms worsen so he could be treated. He admits his symptoms are similar to his previous admission here on January 2023 when he had ~2L removed from his Left lung with thoracentesis. He denies associated fever, chills, nausea, vomiting, chest pain, diarrhea or constipation. In the ER he was noted to have a CXR positive for Left > Right Pleural Effusions with a BNP of 778.4 pg/mL present on admission consistent with AE of Chronic Diastolic CHF; with preserved LVEF complicated by CT evidence of a slight acute increase in his chronic moderate pericardial effusion compounded by clinical evidence of acute hypoxic respiratory failure in the setting of known chronic CML with [facility] having placed him on their waiting list for transfer so he was then admitted to the PCU for ongoing care that is expected to extend beyond 2 midnights. [facility] Medical History Hiatal hernia Esophageal reflux Pulmonary hypertension Mitral regurgitation Presence of IVC filter Lung nodule Vitamin D deficiency Hypercalcemia Hypokalemia Pericardial effusion Peptic ulcer Iron deficiency anemia Depression Dyslipidemia Choledocholithiasis Allergic rhinitis Epigastric abdominal pain DVT of lower extremity (deep venous thrombosis) CKD (chronic kidney disease) stage 3, GFR 30-59 ml/min CML (chronic myelocytic leukemia) History of atrial fibrillation Pleural effusion Hx of peptic ulcer HTN (hypertension) Hx of venous thrombosis and embolism History of tobacco use Atrial fibrillation Home Medications ?Medication ?Instructions ?Recorded ?Last Taken ?Type cholecalciferol (vitamin D3) 25 25 mcg PO DAILY supplement 06/10/19 11/17/23 History mcg (1,000 unit) tablet cyanocobalamin (vitamin B-12) 1,000 mcg IJ .Q2MO supplement 06/10/19 09/16/23 History 1,000 mcg/mL injection solution propranolol 10 mg tablet 10 mg PO DAILY hypertension 06/10/19 11/17/23 History imatinib 400 mg tablet (Gleevec) 600 mg PO DAILY cancer 05/30/22 11/17/23 History pantoprazole 20 mg tablet,delayed 20 mg PO DAILY indigestion 03/03/23 11/17/23 History release verapamil 240 mg 24 hr 240 mg PO DAILY unknown 03/03/23 11/17/23 History capsule,extended release furosemide 20 mg tablet 20 mg PO Q OTHER DAY diuretic 07/10/23 11/17/23 History lorazepam 0.5 mg tablet 0.5 mg PO Q6H PRN nausea and 07/10/23 Unknown History vomiting nilotinib 200 mg capsule (Tasigna) 300 mg PO Q12H cancer 11/18/23 11/17/23 History Allergy/AdvReac Type Severity Reaction Status Date / Time paroxetine (From Paxil) Allergy Other Verified 11/18/23 00:01 nilotinib (From Tasigna) AdvReac Severe Pleural Verified 11/18/23 00:01 effusion/fluid retention Family History Father Hypertension Brother Colon cancer Sister CVA (cerebral vascular accident) Other Heart disease Surgical History Hx of inguinal hernia repair Hx of cholecystectomy (~2020) History of cardiac radiofrequency ablation (RFA) (~10/16/12) History of partial gastrectomy Hx of arthroscopy of knee History of appendectomy Social History Smoking Status: Former smoker how long ago did patient quit smokin alcohol intake: never substance use type: does not use caffeine: No ROS ROS Narrative Review of systems: General: Patient denies fever or chills. HENT: Denies headache, denies stuffy nose, denies sore throat EYES: Denies changes in vision or discharge from eyes. Resp: Patient admits to severe shortness of breath made worse by lying flat and cough that is nonproductive. Cardiac: Patient admits to orthopnea but he denies chest pain, palpitations or heart racing. GI: Denies abdominal pain, denies changes in bowel, denies nausea or vomiting. : Denies changes in urination Extremity: Patient has 3-4+ bilateral lower extremity pitting edema that is equal and symmetric. Musculoskeletal: Feels somewhat generally weak and unwell but he denies arthralgias or myalgias. Neuro: Denies any numbness/tingling Heme: Denies any bleeding or bruising Skin: Denies rashes Psychiatric: No complaints voiced related to uncontrolled depression or anxiety. Endocrine: No polyuria, polydipsia or polyphagia. The rest of the 14 point ROS was negative except for positives in HPI. Vital Signs Vital Signs Vital Signs: 11/18/23 00:03 11/18/23 00:24 11/18/23 00:38 Temperature 97.6 F L Temperature Source Temporal Pulse Rate 95 99 Respiratory Rate 35 H 29 H 37 H Respiratory Effort Respiratory Depth Respiratory Pattern Tachypnea Blood Pressure 193/92 H Blood Pressure Mean 125 Pulse Ox 76 94 98 Oxygen Delivery Method Room Air Bi-pap Fraction of Inspired Oxygen (FIO2) 35 28 11/18/23 00:52 11/18/23 00:53 11/18/23 01:01 Temperature Temperature Source Pulse Rate 92 Respiratory Rate 25 H Respiratory Effort Short of Breath Labored Respiratory Depth Shallow Respiratory Pattern Tachypnea Blood Pressure 167/72 H Blood Pressure Mean 103 Pulse Ox 96 94 Oxygen Delivery Method Bi-pap Bi-pap Bi-pap Fraction of Inspired Oxygen (FIO2) 28 28 11/18/23 01:08 Temperature Temperature Source Pulse Rate 91 Respiratory Rate Respiratory Effort Respiratory Depth Respiratory Pattern Blood Pressure 167/72 H Blood Pressure Mean Pulse Ox Oxygen Delivery Method Fraction of Inspired Oxygen (FIO2) Weight Weight: 189 lb 13.088 oz Body Mass Index (BMI) 28.0 Physical Exam Const alert, oriented x3 and average body habitus Constitutional Narrative: Patient noted to have mildly labored respirations on BiPAP with chronically ill appearance. General Appearance: cooperative HEENT normocephalic, head/scalp atraumatic, hearing grossly normal bilaterally and moist oral mucous membranes Eyes PERRL and EOMs intact bilaterally Neck no lymphadenopathy and supple Resp Resp Narrative: Diminished breath sounds throughout primarily at bases. Cardio Cardio Narrative: Irregularly irregular at ~90 bpm. GI normal to inspection, nondistended, normoactive bowel sounds, soft to palpation, non-tender and non-distended Extremity Extremity Narrative: Patient has 3-4+ bilateral lower extremity edema that is equal and symmetric. Skin Skin Narrative: Patient has no evidence of jaundice, rash or abscess. Neuro oriented x3, CN's II-XII intact bilaterally, moves all extremities and no focal motor deficits Sensorium / Orientation: awake, alert, oriented to person, oriented to place and oriented to time Speech: speech normal Psych Mood & Affect: anxious Results Medical Records Data Attestation: I reviewed the patient's medical records Lab / Micro Data Attestation: I reviewed the patient's lab results. 11/18/23 00:23 11/18/23 00:33 Labs: Laboratory Results - last 24 hr 11/18/23 00:23: WBC 10.3, RBC 3.49 L, Hgb 10.8 L, Hct 34.1 L, MCV 97.7 H, MCH 30.9, MCHC 31.7 L, RDW Std Deviation 51.3 H, RDW Coeff of Jessica 14.4, Plt Count 242, MPV 11.8, Immature Gran % (Auto) 0.400, Neut % (Auto) 76.5 H, Lymph % (Auto) 15.8 L, Benton % (Auto) 6.7, Eos % (Auto) 0.3, Baso % (Auto) 0.3, Absolute Neuts (auto) 7.9 H, Absolute Lymphs (auto) 1.62, Nucleated RBC % 0 11/18/23 00:33: WBC Cancelled, Corrected WBC Cancelled, RBC Cancelled, Hgb Cancelled, Hct Cancelled, MCV Cancelled, MCH Cancelled, MCHC Cancelled, RDW Std Deviation Cancelled, RDW Coeff of Jessica Cancelled, Plt Count Cancelled, MPV Cancelled, Immature Gran % (Auto) Cancelled, Neut % (Auto) Cancelled, Lymph % (Auto) Cancelled, Benton % (Auto) Cancelled, Eos % (Auto) Cancelled, Baso % (Auto) Cancelled, Absolute Neuts (auto) Cancelled, Absolute Lymphs (auto) Cancelled, Total Counted Cancelled, Neutrophils % (Manual) Cancelled, Band Neutrophils % Cancelled, Lymphocytes % (Manual) Cancelled, Monocytes % (Manual) Cancelled, Eosinophils % (Manual) Cancelled, Basophils % (Manual) Cancelled, Metamyelocytes % Cancelled, Myelocytes % Cancelled, Promyelocytes % Cancelled, Blast Cells % Cancelled, Plasma Cell % (Manual) Cancelled, Other Cells % Cancelled, Nucleated RBC % Cancelled, Nucleated RBCs/100 WBC Cancelled, Differential Comment Cancelled, Diff Path Review Cancelled, Hypersegmented Neuts Cancelled, Atypical Lymphocytes Cancelled, Reactive Lymphocytes Cancelled, Smudge Cells Cancelled, Toxic Granulation Cancelled, Toxic Vacuolation Cancelled, Dohle Bodies Cancelled, Juan Luis Rods Cancelled, Platelet Estimate Cancelled, Plt Morphology Comment Cancelled, RBC Morphology Cancelled 11/18/23 00:33: RBC Morphology Cancelled, Polychromasia Cancelled, Hypochromasia Cancelled, Basophilic Stippling Cancelled, Anisocytosis Cancelled, Microcytosis Cancelled, Macrocytosis Cancelled, Spherocytes Cancelled, Sickle Cells Cancelled, Target Cells Cancelled, Tear Drop Cells Cancelled, Ovalocytes Cancelled, Stomatocytes Cancelled, Fernandez-Chetopa Bodies Cancelled, Chela Cells Cancelled, Bite Cells Cancelled, Crenated Cell Cancelled, Acanthocytes (Spur) Cancelled, Rouleaux Cancelled, Schistocytes Cancelled, Sodium 134 L, Potassium 3.5, Chloride 99, Carbon Dioxide 26.0, Anion Gap 9, BUN 12, Creatinine 0.87, Estim Creat Clear Calc 63.86, Est GFR (MDRD) Af Amer 107, Est GFR (MDRD) Non-Af 88, BUN/Creatinine Ratio 13.8, Glucose 148 H, Calcium 8.1 L, Magnesium 1.9 11/18/23 00:44: PT 16.8 H, INR 1.4, APTT 32.6, B-Natriuretic Peptide 778.4 H Micro: Microbiology 11/18/23 00:33 Mucosa - Nose SARS-CoV-2, Influenza & RSV (PCR) - Final ABG Data ABG results: ABG 11/18/23 00:40 Specimen Type ART Sample Site R Radial pH 7.41 Bicarbonate Actual 28.9 H Total CO2 30 Base Excess 4 H O2 Saturation 94 L O2 % 35.0 ABG pCO2 45.3 H ABG pO2 71 L Cheng Test Positive O2 Delivery Device BiPAP Vent Mode Not entered Clinical Comments 09/01 12 35% Imaging Radiology Impression Chest X-Ray 11/18/23 01:00 IMPRESSION: Cardiomegaly and/or pericardial effusion, moderate bilateral pleural effusions, and central consolidation likely due to pulmonary edema. Probable CHF. Electronically Signed: Cali Nielsen MD at 2:04 EDT , [facility] Imaging Services [address] [place] [address] [id number] CTA Chest W/WO Contrast MR#: [id number] Acct: [id number] Name: ABHISHEK BAILEY Rep #: [id number] : 1935 M 88 From: Cali Nielsen MD PCP: Dr. Alok Branch MD Status: REG ER Study: CTA Chest W/WO Contrast Date of Exam: 11/18/23 Exam# [id number] Ordering Dr: Kendall Velazquez DO EXAM: CT ANGIOGRAPHY CHEST WITHOUT AND WITH INTRAVENOUS CONTRAST CLINICAL INDICATION: pericardial effusion TECHNIQUE: Helically acquired angiography images were obtained of the chest without and with intravenous contrast. This CT exam was performed using one or more of the following dose reduction techniques: automated exposure control, adjustment of the mA and/or kV according to patient size, and/or use of iterative reconstruction technique. MIP reconstructed images were created and reviewed. CONTRAST: 100 cc of Isovue-370 IV. RADIATION DOSE: CTDIvol = 9.48 mGy, DLP = 488.21 mGy-cm COMPARISON: 01/29/2023. FINDINGS: PULMONARY ARTERIES: Unremarkable. Normal in caliber. No evidence of pulmonary embolism. AORTA: Unremarkable. Normal in caliber. No evidence of dissection. GREAT VESSELS OF AORTIC ARCH: Unremarkable. Normal in caliber. No evidence of dissection. LUNGS AND PLEURAL SPACES: Diffuse thickening of the interlobular septa likely due to interstitial edema. Probable CHF. Large bilateral pleural effusions increased since previous exam. 9 mm right upper lobe nodule that is increased in size compared with the previous examination. Atelectasis of the lower lobes bilaterally. No pneumothorax. HEART: Moderate pericardial effusion mildly increased since previous examination. Mild cardiomegaly. Coronary artery calcifications. MEDIASTINUM: Unremarkable. No mediastinal or hilar adenopathy. Esophagus is unremarkable. No hiatal hernia. THYROID: Unremarkable. No thyroid lesions. BONES/JOINTS: Unremarkable. No suspicious lytic or blastic abnormality. CT/CTA Chest W/WO Contrast IMPRESSION: 1. No pulmonary embolism or aortic dissection. 2. Moderate pericardial effusion mildly increased since previous examination. 3. Diffuse thickening of the interlobular septa likely due to interstitial edema. Probable CHF. 4. Mild cardiomegaly. 5. Large bilateral pleural effusions increased since previous exam. 6. 9 mm right upper lobe nodule that is increased in size compared with the previous examination. Consider PET/CT or biopsy. 7. Coronary artery disease. 8. Atelectasis of the lower lobes bilaterally. Electronically Signed: Cali Nielsen MD at 4:05 EDT , CC: Dr. Alok Branch MD; Kendall Velazquez DO ~ [employer]: Signed Assessment & Plan Assessment/Plan (1) Acute diastolic heart failure: (2) Pericardial effusion: (3) Acute hypoxic respiratory failure: (4) CML (chronic myelocytic leukemia): (5) Pulmonary hypertension: (6) Mitral regurgitation: QUALIFIERS: Cardiac valve disease etiology: nonrheumatic Qualified Code(s): I34.0 - Nonrheumatic mitral (valve) insufficiency (7) History of atrial fibrillation: (8) HTN (hypertension): QUALIFIERS: Hypertension type: essential hypertension Qualified Code(s): I10 - Essential (primary) hypertension PLAN: Plan 1. AE chronic diastolic CHF; with preserved LVEF evidenced by bilateral pleural effusions with 3-4+ bilateral lower extremity pitting edema that is equal and symmetric and elevated BNP of 778.4 pg/mL in elderly patient with DNR-CC CODE STATUS; without intubation - Admit to PCU. Continue IV Lasix begun in the ER plus give supplemental potassium and magnesium. Check echocardiogram to evaluate LVEF. Serialize troponin. 2. History of CML; previously on Gleevec ~6 years with recent switch to Tasigna with known moderate pericardial effusion with LVEF ~65% (04/2023) followed by Dr. Persaud of the oncology service with history of bilateral pleural effusions and previous thoracentesis complicating #1 - Noted with CT scan abdomen and chest pending to reassess volume of pericardial effusion as it is suspected to be worsening. Patient is awaiting bed for transfer to [facility]. 3. Acute hypoxic respiratory failure requiring BiPAP arising from #1 & #2 - Wean BiPAP as tolerated. 4. Pulmonary hypertension compounding #1 - #3 - Noted. 5. History of Mitral Regurgitation adding to the pathology of #1 - #4 - Noted with repeat echocardiogram pending. 6. Chronic atrial fibrillation; not on anticoagulation due to GI bleed - Noted. Patient will also therefore not receive chemoprophylaxis for DVT. SCD's only. 7. History of Left lower extremity DVT; with history of IVC filter placement - Noted. 8. Essential hypertension - Continue home regimen plus give IV Hydralazine prn for systolic blood pressure > 160 mmHg. 9. Hyperlipidemia - Resume statin as previous. 10. Overweight; BMI 28.1 this admission - Weight loss will be recommended. Check TSH. 11. CKD; stage IIIa - Noted. Check daily CMP ensure continued stability with ongoing diuresis. 12. DUNG - Stable with hemoglobin of 10.8 g/dL present on admission. 13. Depression - Resume home regimen as previous plus give low-dose prn Xanax for breakthrough symptoms. 14. Hiatal hernia with GERD and history of PUD with subsequent partial gastrectomy - Noted. Give IV Protonix given severe illness for HI prophylaxis. 15. Osteoarthritis - Give Tylenol prn. 16. DVT prophylaxis - SCD's only with history of GI bleed and possible need for thoracentesis/pericardiocentesis. Total time: Approximately 75 minutes Charges/Coding Visit Charges Inpatient E&M: 58920 Init Hosp L3
--- NOTE | 2023-11-18 02:58 | ECHOD_ITS ---
Reason For Study: CHF Procedure This was a 2D Doppler, Color Flow transthoracic echocardiogram. Myocardial strain analysis was performed in this exam to aid in the assessment of cardiac function. Exam performed portable in patient room. Left Ventricle Normal left ventricle. The global longitudinal strain = -19.1 % (normal). The estimated ejection fraction is 55-60 %. Right Ventricle Normal right ventricle. Normal systolic function. Atria The left atrium is mildly enlarged. Normal right atrium. Mitral Valve There is moderate mitral annular calcification. Mild (1+) mitral valve insufficiency. Tricuspid Valve Normal tricuspid valve. Mild tricuspid valve insufficiency. Aortic Valve Trisinus/trileaflet aortic valve. Pulmonic Valve The pulmonic valve is not well visualized. Great Vessels Normal aortic root. Pericardium/Pleural Moderate pericardial effusion. MMode/2D Measurements & Calculations LVIDd: 4.7 cm IVSd: 1.0 cm Ao root diam: 3.2 cm LVIDs: 1.9 cm LVPWd: 0.97 cm LA dimension: 4.5 cm RVDd: 3.7 cm FS: 59.1 % LAV(MOD-bp): 78.8 ml LVAd ap4: 24.0 cm2 SV(MOD-sp4): 50.6 ml LAV(MOD-bp) Indexed: 41.1 ml/m2 LVLd ap4: 7.1 cm LAV(MOD-sp2): 83.2 ml EDV(MOD-sp4): 65.3 ml LAV(MOD-sp4): 70.4 ml EDV(sp4-el): 68.6 ml LVAs ap4: 9.9 cm2 LVLs ap4: 5.8 cm ESV(MOD-sp4): 14.6 ml ESV(sp4-el): 14.4 ml EF(MOD-sp4): 77.6 % EF(sp4-el): 79.1 % SV(sp4-el): 54.3 ml LA A4 area: 23.3 cm2 RA A4 area: 18.9 cm2 TAPSE: 1.9 cm Time Measurements MV dec time: 0.23 sec Doppler Measurements & Calculations MV E max bulmaro: 83.0 cm/sec Lat Peak E' Bulmaro: 10.0 cm/sec Med Peak E' Bulmaro: 8.5 cm/sec MV A max bulmaro: 60.9 cm/sec E/E' lat: 8.3 E/E' med: 9.7 MV E/A: 1.4 MV V2 max: 89.0 cm/sec MV P1/2t max bulmaro: 89.3 cm/sec Ao V2 max: 124.5 cm/sec MV max P.2 mmHg MV P1/2t: 71.5 msec Ao max P.2 mmHg MV V2 mean: 50.5 cm/sec MV dec slope: 365.9 cm/sec2 Ao V2 mean: 78.2 cm/sec MV mean P.2 mmHg Ao mean P.9 mmHg MV V2 VTI: 19.7 cm MVA(P1/2t): 3.1 cm2 Ao V2 VTI: 23.7 cm AV (velocity ratio): 0.98 LV V1 max: 117.7 cm/sec MR max bulmaro: 634.5 cm/sec PA V2 max: 86.6 cm/sec LV V1 max P.5 mmHg MR max P.0 mmHg PA max PG (full): 0.94 mmHg LV V1 mean P.0 mmHg MR mean bulmaro: 534.5 cm/sec PA V2 mean: 62.7 cm/sec LV V1 mean: 82.7 cm/sec MR mean P.9 mmHg PA mean PG (full): 0.40 mmHg LV V1 VTI: 23.3 cm MR VTI: 180.0 cm TR max bulmaro: 391.1 cm/sec TR max P.2 mmHg ECHO/Echo Complete Interpretation Summary The estimated ejection fraction is 55-60 %. Moderate Pericardial Effusion No echo signs of Tamponade Ordering Physician: Chris Murray Referring Physician: Alok Branch Performed By: Edson Dukes RCS
[2023-11-18 03:33] LABS: Magnesium 1.9 mg/dL (1.6-2.6); Phosphorus 2.4 mg/dL (2.5-4.9)
--- NOTE | 2023-11-18 04:35 | EX.ED.DYSGE1 ---
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 Patient states that he has been at his baseline but that they recently changed his chemotherapy and he has had this new medication for approximately 4 to 5 days. He states that this afternoon/evening he began to feel shortness of breath which when he tried to lay down increased in severity. He states that he could not catch his breath and therefore EMS was called. EMS states that his pulse ox on room air was approximately 75%. Patient states there is no need for supplemental oxygen at baseline [facility] Medical History Hiatal hernia Esophageal reflux Pulmonary hypertension Mitral regurgitation Presence of IVC filter Lung nodule Vitamin D deficiency Hypercalcemia Hypokalemia Pericardial effusion Peptic ulcer Iron deficiency anemia Depression Dyslipidemia Choledocholithiasis Allergic rhinitis Epigastric abdominal pain DVT of lower extremity (deep venous thrombosis) CKD (chronic kidney disease) stage 3, GFR 30-59 ml/min CML (chronic myelocytic leukemia) History of atrial fibrillation Pleural effusion Hx of peptic ulcer HTN (hypertension) Hx of venous thrombosis and embolism History of tobacco use Atrial fibrillation Home Medications ?Medication ?Instructions ?Recorded ?Last Taken ?Type cholecalciferol (vitamin D3) 25 25 mcg PO DAILY 06/10/19 Unknown History mcg (1,000 unit) tablet cyanocobalamin (vitamin B-12) 1,000 mcg IJ .Q2MO 06/10/19 Unknown History 1,000 mcg/mL injection solution propranolol 10 mg tablet 10 mg PO DAILY PRN hypertension 06/10/19 Unknown History imatinib 400 mg tablet (Gleevec) 600 mg PO DAILY 05/30/22 Unknown History pantoprazole 20 mg tablet,delayed 20 mg PO DAILY indigestion 03/03/23 Unknown History release verapamil 240 mg 24 hr 240 mg PO DAILY 03/03/23 Unknown History capsule,extended release furosemide 20 mg tablet 20 mg PO Q OTHER DAY 07/10/23 Unknown History lorazepam 0.5 mg tablet 0.5 mg PO Q6H PRN nausea and 07/10/23 Unknown History vomiting nilotinib 200 mg capsule (Tasigna) 300 mg PO Q12H 11/18/23 Unknown History Allergy/AdvReac Type Severity Reaction Status Date / Time paroxetine (From Paxil) Allergy Other Verified 11/18/23 00:01 nilotinib (From Tasigna) AdvReac Severe Pleural Verified 11/18/23 00:01 effusion/fluid retention Family History Father Hypertension Brother Colon cancer Sister CVA (cerebral vascular accident) Other Heart disease Surgical History Hx of inguinal hernia repair Hx of cholecystectomy (~2020) History of cardiac radiofrequency ablation (RFA) (~10/16/12) History of partial gastrectomy Hx of arthroscopy of knee History of appendectomy Social History Smoking Status: Former smoker how long ago did patient quit smokin alcohol intake: never substance use type: does not use caffeine: No ROS ROS ED Constitutional Constitutional ED: Denies chills or fever(s) Eyes Eyes: Denies blurry vision or change in vision ENT ENT ED: Denies rhinorrhea or sore throat Cardiovascular Cardiovascular: Reports orthopnea; Denies chest pain or racing heartbeat Respiratory/Chest Respiratory/Chest: Reports cough, dyspnea, dyspnea on exertion and orthopnea Gastrointestinal Gastrointestinal: Denies abdominal pain, diarrhea, nausea or vomiting Genitourinary Genitourinary ED: Denies dysuria Musculoskeletal Musculoskeletal: Denies myalgias Integumentary Denies rash Neurologic Neurologic: Denies headache(s) Hematologic/Lymphatic Hematologic/Lymphatic: Reports easy bleeding and easy bruising EXAM Physical Exam Const Vital Signs: 11/18/23 00:03 11/18/23 00:24 11/18/23 00:38 Temperature 97.6 F L Temperature Source Temporal Pulse Rate 95 99 Respiratory Rate 35 H 29 H 37 H Respiratory Effort Respiratory Depth Respiratory Pattern Tachypnea Blood Pressure 193/92 H Blood Pressure Mean 125 Pulse Ox 76 94 98 Oxygen Delivery Method Room Air Bi-pap Fraction of Inspired Oxygen (FIO2) 35 28 11/18/23 00:52 11/18/23 00:53 11/18/23 01:01 Temperature Temperature Source Pulse Rate 92 Respiratory Rate 25 H Respiratory Effort Short of Breath Labored Respiratory Depth Shallow Respiratory Pattern Tachypnea Blood Pressure 167/72 H Blood Pressure Mean 103 Pulse Ox 96 94 Oxygen Delivery Method Bi-pap Bi-pap Bi-pap Fraction of Inspired Oxygen (FIO2) 28 28 11/18/23 01:08 11/18/23 01:59 11/18/23 02:00 Temperature 98.9 F Temperature Source Temporal Pulse Rate 91 88 Respiratory Rate 25 H 30 H Respiratory Effort Respiratory Depth Respiratory Pattern Blood Pressure 167/72 H 141/76 H Blood Pressure Mean 97 Pulse Ox 98 96 Oxygen Delivery Method Bi-pap Fraction of Inspired Oxygen (FIO2) 11/18/23 02:00 11/18/23 02:15 11/18/23 02:20 Temperature Temperature Source Pulse Rate 87 89 88 Respiratory Rate 25 H 26 H 22 H Respiratory Effort Respiratory Depth Respiratory Pattern Tachypnea Blood Pressure 150/63 H 160/76 H Blood Pressure Mean 85 100 Pulse Ox 99 100 98 Oxygen Delivery Method Fraction of Inspired Oxygen (FIO2) 21 11/18/23 02:30 11/18/23 03:00 11/18/23 03:00 Temperature Temperature Source Pulse Rate 88 97 Respiratory Rate 27 H 26 H Respiratory Effort Respiratory Depth Respiratory Pattern Blood Pressure 141/76 H 165/87 H 165/87 H Blood Pressure Mean 87 113 107 Pulse Ox 86 97 Oxygen Delivery Method Bi-pap Fraction of Inspired Oxygen (FIO2) 11/18/23 03:03 11/18/23 03:15 11/18/23 03:30 Temperature Temperature Source Pulse Rate 102 H 97 Respiratory Rate 23 H 30 H Respiratory Effort Respiratory Depth Respiratory Pattern Blood Pressure 175/79 H 182/81 H Blood Pressure Mean 107 105 Pulse Ox 86 98 Oxygen Delivery Method Fraction of Inspired Oxygen (FIO2) 11/18/23 03:33 11/18/23 03:45 Temperature 97.5 F L Temperature Source Temporal Pulse Rate 98 94 Respiratory Rate 34 H 35 H Respiratory Effort Respiratory Depth Respiratory Pattern Blood Pressure 182/81 H 157/87 H Blood Pressure Mean 114 109 Pulse Ox 94 97 Oxygen Delivery Method Bi-pap Fraction of Inspired Oxygen (FIO2) 30 Positive well nourished and well developed Constitutional Narrative: Patient is in acute respiratory distress with tachypnea accessory muscle use and slight retractions noted General Appearance ED: well developed and pallor HEENT Reports dry mucous membranes HEENT Narrative: Mucous membranes are dry and tacky However no tongue or lip swelling no oral lesions no airway edema or compromise Mouth ED: Yes dry mucous membranes Mouth: dry mucous membranes Eyes PERRL and EOMs intact bilaterally General Eye ED: Negative for scleral icterus Neck supple Neck Narrative: Bilateral JVD noted Chest Wall Chest Narrative: No bony deformity or crepitance of the chest wall Resp Resp Narrative: Patient is in respiratory distress with tachypnea and retractions and accessory muscle use. Breath sounds are diminished throughout and there is diffuse expiratory wheeze Cardio regular rate and regular rhythm GI normal to inspection, nondistended, normoactive bowel sounds, non-tender, non-distended and no masses GI Narrative: No pulsatile mass or fluid wave noted Auscultation: normoactive bowel sounds Palpation: soft Extremity Extremity Narrative: +3-4 pitting edema to the bilateral lower extremities that is equal and symmetric Neuro oriented x3, CN's II-XII intact bilaterally and no sensory deficits noted Sensorium / Orientation: alert Motor Exam: strength 5/5 throughout Psych mental status grossly normal Skin no rashes or lesions noted General Skin Exam: pallor; Negative for jaundice MDM MDM MDM Narrative Medical decision making narrative: Patient arrived to the ER in respiratory distress and pulse ox was hypoxic at 75. Exam and history is most consistent with CHF exacerbation. There is also concern for potential acute blood loss anemia or acute kidney injury or pericardial effusion exacerbation. Basic blood work was obtained and with the patient's increased work of breathing and hypoxia he was placed on BiPAP. He was given 1 sublingual nitro to reduce preload and IV Lasix secondary to the volume overload. With the BiPAP medication given patient's work of breathing resolved and his pulse ox improved to 95 to 97%. Chest x-ray confirmed pleural effusion and questioned cardiomegaly versus pericardial effusion. As he has a known pericardial effusion there is a possibility that this has increased on his last exam and could be the main cause of his shortness of breath so a CTA was ordered. This revealed that the pericardial effusion has increased in size since last CT scan but only slightly while the pericardial effusions have greatly increased. The patient is a DNR Comfort Care arrest no intubation and therefore we have not exhausted his breathing regimen with the BiPAP as he cannot be intubated if needed. He will most likely need a thoracentesis and/or pericardiocentesis or pericardial window secondary to his symptoms and he does request transfer to [facility] where he has been seen before for similar event and had 2 L of fluid removed. They were contacted but they are boarding multiple patients even ICU patients in their ER and stated will be multiple days before he has a bed. Secondary to this medicine was contacted and they do agree to accept the patient at this facility at this time while he is awaiting transfer. History & Record Review Discussion w/independent historian: Patient Lab Data Attestation: I reviewed the patient's lab results. Labs: Laboratory Results - last 24 hr 11/18/23 11/18/23 11/18/23 00:23 00:33 00:33 WBC 10.3 Cancelled Corrected WBC Cancelled RBC 3.49 L Cancelled Hgb 10.8 L Cancelled Hct 34.1 L Cancelled MCV 97.7 H Cancelled MCH 30.9 Cancelled MCHC 31.7 L Cancelled RDW Std Deviation 51.3 H Cancelled RDW Coeff of Jessica 14.4 Cancelled Plt Count 242 Cancelled MPV 11.8 Cancelled Immature Gran % (Auto) 0.400 Cancelled Neut % (Auto) 76.5 H Cancelled Lymph % (Auto) 15.8 L Cancelled Bertie % (Auto) 6.7 Cancelled Eos % (Auto) 0.3 Cancelled Baso % (Auto) 0.3 Cancelled Absolute Neuts (auto) 7.9 H Cancelled Absolute Lymphs (auto) 1.62 Cancelled Total Counted Cancelled Neutrophils % (Manual) Cancelled Band Neutrophils % Cancelled Lymphocytes % (Manual) Cancelled Monocytes % (Manual) Cancelled Eosinophils % (Manual) Cancelled Basophils % (Manual) Cancelled Metamyelocytes % Cancelled Myelocytes % Cancelled Promyelocytes % Cancelled Blast Cells % Cancelled Plasma Cell % (Manual) Cancelled Other Cells % Cancelled Nucleated RBC % 0 Cancelled Nucleated RBCs/100 WBC Cancelled Differential Comment Cancelled Diff Path Review Cancelled Hypersegmented Neuts Cancelled Atypical Lymphocytes Cancelled Reactive Lymphocytes Cancelled Smudge Cells Cancelled Toxic Granulation Cancelled Toxic Vacuolation Cancelled Dohle Bodies Cancelled Juan Luis Rods Cancelled Platelet Estimate Cancelled Plt Morphology Comment Cancelled RBC Morphology Cancelled Cancelled Polychromasia Cancelled Hypochromasia Cancelled Basophilic Stippling Cancelled Anisocytosis Cancelled Microcytosis Cancelled Macrocytosis Cancelled Spherocytes Cancelled Sickle Cells Cancelled Target Cells Cancelled Tear Drop Cells Cancelled Ovalocytes Cancelled Stomatocytes Cancelled Fernandez-Steele Bodies Cancelled Chela Cells Cancelled Bite Cells Cancelled Crenated Cell Cancelled Acanthocytes (Spur) Cancelled Rouleaux Cancelled Schistocytes Cancelled PT INR APTT Sodium 134 L Potassium 3.5 Chloride 99 Carbon Dioxide 26.0 Anion Gap 9 BUN 12 Creatinine 0.87 Estim Creat Clear Calc 63.86 Est GFR (MDRD) Af Amer 107 Est GFR (MDRD) Non-Af 88 BUN/Creatinine Ratio 13.8 Glucose 148 H Calcium 8.1 L Phosphorus Magnesium 1.9 B-Natriuretic Peptide 11/18/23 11/18/23 00:44 03:14 WBC Corrected WBC RBC Hgb Hct MCV MCH MCHC RDW Std Deviation RDW Coeff of Jessica Plt Count MPV Immature Gran % (Auto) Neut % (Auto) Lymph % (Auto) Bertie % (Auto) Eos % (Auto) Baso % (Auto) Absolute Neuts (auto) Absolute Lymphs (auto) Total Counted Neutrophils % (Manual) Band Neutrophils % Lymphocytes % (Manual) Monocytes % (Manual) Eosinophils % (Manual) Basophils % (Manual) Metamyelocytes % Myelocytes % Promyelocytes % Blast Cells % Plasma Cell % (Manual) Other Cells % Nucleated RBC % Nucleated RBCs/100 WBC Differential Comment Diff Path Review Hypersegmented Neuts Atypical Lymphocytes Reactive Lymphocytes Smudge Cells Toxic Granulation Toxic Vacuolation Dohle Bodies Juan Luis Rods Platelet Estimate Plt Morphology Comment RBC Morphology Polychromasia Hypochromasia Basophilic Stippling Anisocytosis Microcytosis Macrocytosis Spherocytes Sickle Cells Target Cells Tear Drop Cells Ovalocytes Stomatocytes Fernandez-Steele Bodies Chela Cells Bite Cells Crenated Cell Acanthocytes (Spur) Rouleaux Schistocytes PT 16.8 H INR 1.4 APTT 32.6 Sodium Potassium Chloride Carbon Dioxide Anion Gap BUN Creatinine Estim Creat Clear Calc Est GFR (MDRD) Af Amer Est GFR (MDRD) Non-Af BUN/Creatinine Ratio Glucose Calcium Phosphorus 2.4 L Magnesium 1.9 B-Natriuretic Peptide 778.4 H ABG Data ABG results: ABG 11/18/23 00:40 Specimen Type ART Sample Site R Radial pH 7.41 Bicarbonate Actual 28.9 H Total CO2 30 Base Excess 4 H O2 Saturation 94 L O2 % 35.0 ABG pCO2 45.3 H ABG pO2 71 L Cheng Test Positive O2 Delivery Device BiPAP Vent Mode Not entered Clinical Comments 09/01 12 35% Radiography Diagnostic Testing: Clinical Impression(s) from Imaging Studies Chest X-Ray 11/18/23 01:00 IMPRESSION: Cardiomegaly and/or pericardial effusion, moderate bilateral pleural effusions, and central consolidation likely due to pulmonary edema. Probable CHF. Electronically Signed: Cali Nielsen MD at 2:04 EDT , Chest CTA 11/18/23 02:23 IMPRESSION: 1. No pulmonary embolism or aortic dissection. 2. Moderate pericardial effusion mildly increased since previous examination. 3. Diffuse thickening of the interlobular septa likely due to interstitial edema. Probable CHF. 4. Mild cardiomegaly. 5. Large bilateral pleural effusions increased since previous exam. 6. 9 mm right upper lobe nodule that is increased in size compared with the previous examination. Consider PET/CT or biopsy. 7. Coronary artery disease. 8. Atelectasis of the lower lobes bilaterally. Electronically Signed: Cali Nielsen MD at 4:05 EDT , Chest x-ray as interpreted by the emergency medicine physician reveals large bilateral pleural effusions with cardiomegaly versus pericardial effusion Management Discussion w/another healthcare provider: Hospitalist Critical Care Time Critical Care Time: Yes Critical care time (excluding procedures): Discussing w/Patient &/or Family/Resin Maker, Discussing w/Consultants and - (Critical care time of 37 minutes) Discharge Plan Triage Chief Complaint: Shortness of Breath ED Provider: Kendall Velazquez Dx/Rx/DC Orders Clinical Impression: Acute hypoxic respiratory failure, CML (chronic myelocytic leukemia), Pericardial effusion, Pulmonary hypertension, Acute diastolic heart failure, HTN (hypertension), Pleural effusion due to CHF (congestive heart failure) Prescriptions: No Action verapamil 240 mg capsule,ext rel. pellets 24 hr 240 mg PO DAILY furosemide 20 mg tablet 20 mg PO Q OTHER DAY Patient Comments: Take 1 tablet by mouth every other day. lorazepam 0.5 mg tablet 0.5 mg PO Q6H PRN (Reason: nausea and vomiting) propranolol 10 MG tablet 10 mg PO DAILY PRN (Reason: hypertension) cyanocobalamin (vitamin B-12) 1,000 MCG/ML solution 1,000 mcg IJ .Q2MO cholecalciferol (vitamin D3) 25 MCG tablet 25 mcg PO DAILY imatinib [Gleevec] 400 mg Tablet 600 mg PO DAILY pantoprazole 20 mg tablet,delayed release (DR/EC) 20 mg PO DAILY Patient Comments: TAKE 1 TABLET BY MOUTH EVERY DAY before BREAKFAST. Take ONE-HALF hour before BREAKFAST. Tasigna 200 mg capsule 300 mg PO Q12H Rx Instructions: must be taken on empty stomach; no food at least 2 hrs before or 1 hr after dose Primary Care Provider: Alok Branch Referrals: Alok Branch MD [Primary Care Provider] - Print Language: [place] Disposition Disposition: Acute Care [facility]
[2023-11-18 07:35] LABS: Troponin-I HS 253 pg/mL (3.0-78.0)
[2023-11-18 08:04] LABS: BNP,B-Type NATRIURETIC PEPTIDE 829.4 pg/mL (0-100)
[2023-11-18 08:54] LABS: Blood Gas Specimen Type VEN; O2 Delivery Device BiPAP; RR 12; SITE Not entered; VBG BASE EXCESS 8 mmol/L (-1.0-3.5); VBG Bicarbonate 32 mmol/L (22-26); VBG PO2 130 mmHg (25-40); VBG SO2 99 % (50-70); VBG TCO2 34 mmol/L (23-33); VBG pCO2 48.8 mmHg (41-51); VBG pH 7.43 (7.32-7.42)
[2023-11-18 08:58] LABS: Troponin-I HS 242 pg/mL (3.0-78.0)
--- NOTE | 2023-11-18 09:54 | CASEMGMT ---
According to [facility]'s website, the following tertiary facilities are in network: [facility], [place], [facility], [facility], [facility], [facility], [facility] and .
[2023-11-18] MEDS: Pantoprazole Sodium 20 MG Tablet PO (10:09)
[2023-11-18] MEDS: Verapamil SR 240 MG Tablet PO (10:09)
[2023-11-18] MEDS: Potassium Chloride Oral Tablet 20 MEQ PO ×2 (10:09→17:51)
[2023-11-18] MEDS: Cholecalciferol (VIT D3) 25 MCG TABLET (1,000 UNITS) PO (10:09)
[2023-11-18] MEDS: Magnesium Chloride 64 MG Delay Rel.Tablet 128 MG PO ×2 (10:10→20:58)
[2023-11-18] MEDS: 0.9% Saline Lock 10 ML Syringe IV ×2 (10:11→17:51)
[2023-11-18] MEDS: Propranolol 10 MG Tablet PO (10:14)
--- NOTE | 2023-11-18 10:37 | NURSING ---
I spoke to Ena at [facility] transfer line and she stated the pt is on the wait list however they do not have a bed at this time.
[2023-11-18 13:06] LABS: Troponin-I HS 205 pg/mL (3.0-78.0)
--- NOTE | 2023-11-18 13:06 | PCM.HOSP.N ---
Hospitalist Note Patient admitted early this morning with respiratory distress presumed secondary to volume overload from CHF exacerbation. I saw patient at the bedside later this morning. He had been transitioned off the BiPAP to low-flow nasal cannula and was breathing comfortably with good saturations at that time. He was eating a small breakfast and tolerating this without issue. He had no conversational dyspnea noted. Stated that he felt significantly better now than earlier today. Reports good urine output with IV diuresis. Notably, patient started new medication (nilotinib) for CML last Monday and there is concern that this may be contributing to his current presentation. This medication will be held. Patient has appointment with his oncologist Dr. Persaud in mid November, can discuss further management going forward at that time. Patient has been accepted for transfer to [facility], awaiting bed availability. If patient remains here tomorrow, full progress note to follow.
--- NOTE | 2023-11-18 15:33 | NURSING ---
Cancel transfer to [facility]. Pericardial effusion is stable. Will manage pleural effusions at [facility].
[2023-11-18] MEDS: LORazepam 0.5 MG Tablet PO (17:51)
--- NOTE | 2023-11-18 20:32 | CPS ---
Patient refused PAP therapy for the night. On continuous pulse ox monitor, 2L.
[2023-11-18] MEDS: MELATONIN 3 MG TABLET 6 MG PO (21:28)
[2023-11-19] MEDS: LORazepam 0.5 MG Tablet PO ×2 (02:21→21:55)
[2023-11-19 02:27] VITALS: BP 131/61; PULSE 89; RESP 18; TEMP 36.8; O2SAT 95
[2023-11-19 03:08] VITALS: BMI 25.7
[2023-11-19 07:01] LABS: Cholesterol 109 mg/dL (200); High Density Lipoprotein 32 mg/dL; Triglycerides 86 mg/dL; Very Low Density Lipoprotein 17 mg/dL (5-40)
[2023-11-19 08:30] VITALS: BP 130/65; PULSE 88; RESP 18; TEMP 37.1; O2SAT 92
[2023-11-19 08:33] LABS: Hematocrit 26.7 % (40-54); Hemoglobin 8.7 g/dL (13.0-16.5); Mean Corp Hgb Conc 32.6 g/dL (32-36); Mean Corpuscular Hgb 31.3 pg (27.0-32.0); Platelet Count 288 K/mm3 (150-450); RBC Distribution Width CV 14.1 % (11.6-14.6); Red Blood Count 2.78 M/mm3 (4.6-6.2); White Blood Count 8.2 K/mm3 (4.4-11.0)
[2023-11-19 08:40] LABS: Anion Gap 9 (5-15); BUN 14 mg/dL (7-18); BUN/Creat Ratio 15.2 RATIO (10-20); Calcium,Total 8.2 mg/dL (8.5-10.1); Chloride 98 mmol/L (98-107); Creatinine, Serum 0.92 mg/dL (0.70-1.30); EST Glomerular Filtration Rate 82 mL/min (>60); Est Glom Filt Rate - Afr Amer 100 mL/min (>60); Estimated Creatinine Clearance 56.57 ml/min; Glucose 116 mg/dL (74-106); Sodium Level 139 mmol/L (136-145)
[2023-11-19] MEDS: Verapamil SR 240 MG Tablet PO (10:56)
[2023-11-19] MEDS: Propranolol 10 MG Tablet PO (10:56)
[2023-11-19] MEDS: Cholecalciferol (VIT D3) 25 MCG TABLET (1,000 UNITS) PO (10:56)
[2023-11-19] MEDS: Pantoprazole Sodium 20 MG Tablet PO (10:56)
[2023-11-19] MEDS: Potassium Chloride Oral Tablet 20 MEQ PO ×2 (10:56→15:37)
[2023-11-19] MEDS: Magnesium Chloride 64 MG Delay Rel.Tablet 128 MG PO ×2 (10:56→20:39)
[2023-11-19] MEDS: 0.9% Saline Lock 10 ML Syringe IV ×3 (10:57→20:39)
[2023-11-19] MEDS: Furosemide 40 MG/4 ML Vial IV ×3 (10:57→20:39)
--- NOTE | 2023-11-19 11:04 | PN.HOSP_ITS ---
Reason for Visit Reason for Visit: Diagnoses Chronic myeloid leukemia, BCR/ABL-positive, not having achieved remission (11/18/23) Essential (primary) hypertension (11/18/23) Pulmonary hypertension, unspecified (11/18/23) Other pericardial effusion (noninflammatory) (11/18/23) Nonrheumatic mitral (valve) insufficiency (11/18/23) Acute diastolic (congestive) heart failure (11/18/23) Acute respiratory failure with hypoxia (11/18/23) Personal history of other diseases of the circulatory system (11/18/23) Subjective Subjective No acute events overnight. Patient seen at bedside this morning. Sitting up comfortably in bed, conversing normally, no acute distress. Breathing comfortably on 3 L nasal cannula at rest. Patient feels mildly fatigued this morning but otherwise continues to feel improved from previous days. He is breathing comfortably at rest and reports less dyspnea on exertion. He does report good urine output with the IV diuretic. He denies any other pain or discomfort. Denies any fevers or chills. No other acute concerns at this time. Objective Data Objective Data Vital Signs: Vital Signs Temp Pulse Resp BP Pulse Ox O2 Del Method O2 Flow Rate 98.7 F 88 18 130/65 H 92 Nasal Cannula 3 11/19/23 08:30 11/19/23 08:30 11/19/23 08:30 11/19/23 08:30 11/19/23 08:30 11/19/23 08:41 11/19/23 08:41 FiO2 30 11/18/23 08:08 Oxygen Flow Rate (L/min) 3 Oxygen Delivery Method Nasal Cannula Weight: 79 kg Body Mass Index (BMI) 25.7 Intake & Output: Intake and Output for Last 24 Hours 11/17/23 11/18/23 11/19/23 23:59 23:59 23:59 Intake Total 360 / 560 400 / 400 Output Total 1925 / 2525 1050 / 1050 Balance -1565 / -1965 -650 / -650 Lab / Micro Data 11/19/23 05:25 11/19/23 05:25 Labs: Laboratory Results - last 24 hr 11/18/23 12:26: Troponin I High Sens 205 H* 11/19/23 05:25: WBC 8.2, RBC 2.78 L, Hgb 8.7 L, Hct 26.7 L, MCV 96.0 H, MCH 31.3, MCHC 32.6, RDW Std Deviation 50.0 H, RDW Coeff of Jessica 14.1, Plt Count 288, MPV 10.0, Sodium 139, Potassium 3.0 L, Chloride 98, Carbon Dioxide 32.0, Anion Gap 9, BUN 14, Creatinine 0.92, Estim Creat Clear Calc 56.57, Est GFR (MDRD) Af Amer 100, Est GFR (MDRD) Non-Af 82, BUN/Creatinine Ratio 15.2, Glucose 116 H, C alcium 8.2 L, Triglycerides 86, Cholesterol 109, LDL Cholesterol 60, VLDL Cholesterol 17, HDL Cholesterol 32 L Micro: Microbiology 11/18/23 00:33 Mucosa - Nose SARS-CoV-2, Influenza & RSV (PCR) - Final Radiography Diagnostic Testing: Radiology Impression Echocardiogram 11/18/23 02:58 Interpretation Summary The estimated ejection fraction is 55-60 %. Moderate Pericardial Effusion No echo signs of Tamponade Ordering Physician: Chris Murray Referring Physician: Alok Branch Performed By: Edson Dukes, KEVIN Physical Exam Const alert, oriented x3, no apparent distress and average body habitus Constitutional Narrative: Pleasant elderly male, appears younger than stated age, mildly fatigued appearing, otherwise sitting up comfortably in bed, conversing normally, in no acute distress. General Appearance: cooperative and comfortable HEENT normocephalic, head/scalp atraumatic, hearing grossly normal bilaterally, nasal mucous membranes and turbinates normal and moist oral mucous membranes Eyes PERRL, EOMs intact bilaterally and conjunctivae normal Neck full ROM Chest inspection of chest normal Resp normal respiratory effort and no use of accessory muscles Resp Narrative: Moderately decreased breath sounds in bilateral lung bases with mild crackles noted in central airways. No wheezing noted. Breathing comfortably on 3 L nasal cannula at rest. Improving. Cardio regular rate, regular rhythm, no murmurs and peripheral pulses 2+ throughout GI normal to inspection, nondistended, normoactive bowel sounds, soft to palpation, non-tender and non-distended Back/Spine normal ROM Extremity normal to inspection, full ROM and no pedal edema Skin no rashes or lesions noted Neuro no focal motor deficits and no sensory deficits noted Speech: speech normal Psych mental status grossly normal Assessment & Plan Assessment/Plan (1) Acute diastolic heart failure: (2) Pleural effusion due to CHF (congestive heart failure): (3) Hypoxia: PLAN: Plan Patient is an 88-year-old male who presented [facility] ED on 11/18/2023 with worsening shortness of breath. 1. Acute HFpEF exacerbation with bilateral pleural effusions with acute hypoxia, improving ? Presented with significant shortness of breath and orthopnea. Chest imaging showed significant bilateral pleural effusions with pulmonary edema. Did require BiPAP on admission for a few hours, then transitioned off to low-flow nasal cannula and did well. Currently on 3 L nasal cannula at rest, breathing comfortably with good oxygen saturations. Continue IV Lasix 40 mg 3 times daily for now. Monitor daily BMP and urine output. Will repeat chest x-ray tomorrow morning to reassess pleural effusions. Will hope to transition to p.o. Lasix in the next 1 to 2 days. Wean supplemental oxygen as able. Will likely need home oxygen testing prior to discharge. 2. Known moderate pericardial effusion, stable ? Echo on admit showed a moderate pericardial effusion with no tamponade features. This is stable in appearance compared to echo from 04/2023. Continue outpatient follow-up with [facility] cardiothoracic surgery. 3. CML ? Follows with Dr. Persaud. Diagnosed many years ago. Was on Gleevac for about 6 years; was switched to Tasigna very recently and first dose was on Monday 11/13. Suspected that this new medication may be the cause of his acute heart failure exacerbation as noted above, holding this medication. Will reach out to Dr. Persaud tomorrow for recommendations moving forward. Chronic medical conditions: ? Chronic A-fib: Not on anticoagulation due to history of GI bleed. Rate controlled on admit. Continue home propranolol and verapamil. ? History of LLE DVT s/p IVC filter ? Hypertension: Stable. Continue home propranolol. ? Chronic iron deficiency anemia: Hemoglobin 10.8 on admit, decreased to 8.7 on hospital day 2; baseline 9-10. No blood loss noted. Follow-up a.m. CBC. ? Osteoarthritis: Tylenol as needed. ? GERD: Continue home PPI. DVT prophylaxis: SCDs CODE STATUS: DNR CCA, DNI Expected disposition: Home, 2 to 3 days Total clinical time spent by myself addressing the patient's medical issues, reviewing all the data, and collaborating with patient's care team: 35 minutes. Charges/Coding Visit Charges Inpatient E&M: 32275 Subs Hosp L2
[2023-11-19 14:30] VITALS: BP 108/57; PULSE 75; RESP 18; TEMP 37.2; O2SAT 94
[2023-11-19 19:56] VITALS: O2SAT 93
[2023-11-19 20:36] VITALS: BP 133/63; PULSE 82; RESP 20; TEMP 36.7; O2SAT 92
--- NOTE | 2023-11-19 21:27 | CPS ---
Patient refused PAP therapy for the night, on 2L 93%.
[2023-11-19] MEDS: MELATONIN 3 MG TABLET 6 MG PO (21:55)
[2023-11-19 22:00] VITALS: O2SAT 88; O2SAT 94
[2023-11-20] VITALS (29 sets, daily range): BP systolic 104–178; BP diastolic 55–83; PULSE 70–108; RESP 18–30; TEMP 36.4–37.1; O2SAT 87–98; BMI 24.7
--- NOTE | 2023-11-20 | FLU_PTH ---
PATIENT: ABHISHEK BAILEY LOC: [facility] U#:[id number] AGE/SX: 88/M ROOM: [facility] RE11/18/[address]: Dr. Javid Bland DO : 1935 BED: 1 DIS: 11/21/2023 SPEC #: [id number] RECD: 11/20/23 14:22 STATUS: DAYNA REMarylou #: [id number] SHANDA: 11/20/23 00:[address]: Javid Bland DEPT: CYTOLOGY RECD BY: Gentry Coelho ENTERED: 11/20/23 14:22 SP TYPE: Fluid OTHR DR: DO Dr. Alok Christiansen MD Tissues: THORACIC FLUID Procedures: Special Stain Group II Surgery Specimen Level IV Cytospin Fluid HEADER OPERATION: Ultrasound guided thoracentesis PRE-OP DIAGNOSIS: Pleural effusion TISSUE SUBMITTED: Thoracentesis fluid for cytology DIAGNOSIS CYTOLOGY Thoracentesis fluid for cytology (cytospin and cellblock): Negative for malignant cells. See comment. SJ/mr 11/21/2023 COMMENT Clinical correlation and appropriate follow up are necessary. CYTOLOGY STUDY Slides are reviewed. CYTOLOGY GROSS Received is 106 ml of cloudy yellow fluid labeled with the patient's name and and designated per the requisition as Thoracentesis fluid. Submitted for cytology preparation including cell block. Mr 11/20/2023 TC:5 CPT: 80925,76784
[2023-11-20] MEDS: LORazepam 0.5 MG Tablet PO ×3 (03:55→21:17)
[2023-11-20] MEDS: Sodium Chloride 0.65% 1 SPRAY SPRAY.BTL NASAL (05:04)
[2023-11-20] MEDS: Furosemide 40 MG/4 ML Vial IV (05:07)
[2023-11-20] MEDS: 0.9% Saline Lock 10 ML Syringe IV (05:08)
--- NOTE | 2023-11-20 06:00 | RAD_ITS ---
EXAM: XR CHEST, 1 VIEW CLINICAL INDICATION: reassess pleural effusions TECHNIQUE: Frontal view of the chest. COMPARISON: Single view chest 11/18/2023 FINDINGS: LUNGS AND PLEURAL SPACES: Moderate pleural effusions with diffuse pulmonary edema and bibasilar atelectasis. No pneumothorax. HEART: Moderate enlargement of the cardiac silhouette. MEDIASTINUM: Central airways and mediastinal contour are unremarkable. BONES/JOINTS: Unremarkable. No acute fracture. SOFT TISSUES: Unremarkable. RAD/Chest 1 View (Portable) IMPRESSION: Moderate pleural effusions with diffuse pulmonary edema and bibasilar atelectasis. Findings may indicate CHF. Electronically Signed: Jorje Lee MD at 7:14 EDT ,
[2023-11-20 06:49] LABS: Anion Gap 8 (5-15); BUN 16 mg/dL (7-18); BUN/Creat Ratio 16.9 RATIO (10-20); Calcium,Total 8.4 mg/dL (8.5-10.1); Chloride 96 mmol/L (98-107); Creatinine, Serum 0.95 mg/dL (0.70-1.30); EST Glomerular Filtration Rate 80 mL/min (>60); Est Glom Filt Rate - Afr Amer 97 mL/min (>60); Estimated Creatinine Clearance 54.78 ml/min; Glucose 151 mg/dL (74-106); Potassium 3.1 mmol/L (3.5-5.1); Sodium Level 137 mmol/L (136-145)
--- NOTE | 2023-11-20 07:41 | US_ITS ---
PROCEDURE: ULTRASOUND GUIDED THORACENTESIS. DATE: November 20, 2023.. INDICATION: Male, 88 years old. Left pleural effusion. PHYSICIAN: Sherwin Aaron M.D. PROCEDURE: The risks, benefits, and alternatives to the procedure were explained to the patient. The specific risks of bleeding, infection, and pneumothorax requiring chest tube insertion were discussed and accepted. Written informed consent was obtained. Ultrasonographic evaluation of the left lower pleural space was carried out. An adequate pocket was identified. The patient was placed in the sitting, upright position. The overlying skin was prepped and draped in sterile fashion. 1% lidocaine was administered subcutaneously for local anesthesia. Under ultrasound guidance, a 5 Albanian thoracentesis needle/catheter system was advanced into the left posterior lower pleural fluid collection. Approximately 1750 mL of blanca-colored fluid was drained. The catheter was removed, and a sterile dressing was applied. A specimen was collected and sent to the laboratory for analysis, as requested by the referring clinician. The patient tolerated the procedure well. A chest x-ray was ordered. US/Thoracentesis W US IMPRESSION: Ultrasound-guided left thoracentesis. Electronically Signed: Sherwin Aaron MD at 14:29 EDT ,
[2023-11-20 08:07] LABS: Hematocrit 26.4 % (40-54); Hemoglobin 8.5 g/dL (13.0-16.5); Mean Corp Hgb Conc 32.2 g/dL (32-36); Mean Corpuscular Hgb 30.7 pg (27.0-32.0); Mean Corpuscular Volume 95.3 fL (80-94); Mean Platelet Vol. 10.6 fl (6.2-12.0); Platelet Count 273 K/mm3 (150-450); RBC Distribution Width CV 13.8 % (11.6-14.6); RBC Distribution Width SD 48.9 fl (35.1-43.9); Red Blood Count 2.77 M/mm3 (4.6-6.2); White Blood Count 9.1 K/mm3 (4.4-11.0)
[2023-11-20] MEDS: Furosemide 500 MG in Empty Viaflex 50 mL 1 EACH CONT INF (09:08)
[2023-11-20] MEDS: Propranolol 10 MG Tablet PO (09:10)
[2023-11-20] MEDS: Pantoprazole Sodium 20 MG Tablet PO (09:11)
[2023-11-20] MEDS: Potassium Chloride Oral Tablet 20 MEQ PO ×2 (09:11→17:59)
[2023-11-20] MEDS: Magnesium Chloride 64 MG Delay Rel.Tablet 128 MG PO ×2 (09:11→21:17)
[2023-11-20] MEDS: Cholecalciferol (VIT D3) 25 MCG TABLET (1,000 UNITS) PO (09:11)
[2023-11-20] MEDS: Verapamil SR 240 MG Tablet PO (09:11)
[2023-11-20] MEDS: Potassium Chloride Oral Tablet 20 MEQ 40 MEQ PO (09:22)
--- NOTE | 2023-11-20 11:33 | PCM.PN.HOSP ---
Reason for Visit Reason for Visit: Diagnoses Chronic myeloid leukemia, BCR/ABL-positive, not having achieved remission (11/18/23) Essential (primary) hypertension (11/18/23) Pulmonary hypertension, unspecified (11/18/23) Other pericardial effusion (noninflammatory) (11/18/23) Nonrheumatic mitral (valve) insufficiency (11/18/23) Acute diastolic (congestive) heart failure (11/18/23) Heart failure, unspecified (11/18/23) Acute respiratory failure with hypoxia (11/18/23) Hypoxemia (11/18/23) Personal history of other diseases of the circulatory system (11/18/23) Subjective Subjective Overnight patient was requiring up to 8 L high flow nasal cannula and reported worsening shortness of breath with laying flat to nursing staff. Was on IV Lasix 40 mg 3 times daily yesterday he has been on IV Lasix since admission. Repeat chest x-ray was done this morning and showed moderately worsening volume overload compared to chest x-ray on admission. I saw patient at bedside this morning. He was sitting up in bed but did appear slightly more fatigued than yesterday and did appear to have mild conversational dyspnea. He had mild increased work of breathing noted on 8 liters high flow nasal cannula. He reported decent urine output with the IV Lasix yesterday but was not able to quantify it. He noted that he continues to feel like his chest is heavier right now than previous days. He has not tried to get out of bed yet this morning. Otherwise denies any fevers or chills. No other acute concerns this morning. Objective Data Objective Data Vital Signs: Vital Signs Temp Pulse Resp BP Pulse Ox O2 Del Method O2 Flow Rate 98.7 F 102 H 21 H 160/79 H 91 Nasal Cannula 6 11/20/23 09:00 11/20/23 09:00 11/20/23 09:00 11/20/23 09:00 11/20/23 09:00 11/20/23 09:00 11/20/23 09:00 FiO2 94 11/20/23 02:51 Oxygen Flow Rate (L/min) 6 Oxygen Delivery Method Nasal Cannula Weight: 76.1 kg Body Mass Index (BMI) 24.7 Intake & Output: Intake and Output for Last 24 Hours 11/18/23 11/19/23 11/20/23 23:59 23:59 23:59 Intake Total 360 / 560 1240 / 1240 280 / 280 Output Total 1925 / 2525 2445 / 2445 600 / 600 Balance -1565 / -1965 -1205 / -1205 -320 / -320 Lab / Micro Data 11/20/23 05:04 11/20/23 05:04 Labs: Laboratory Results - last 24 hr 11/20/23 05:04: WBC 9.1, RBC 2.77 L, Hgb 8.5 L, Hct 26.4 L, MCV 95.3 H, MCH 30.7, MCHC 32.2, RDW Std Deviation 48.9 H, RDW Coeff of Jessica 13.8, Plt Count 273, MPV 10.6, Sodium 137, Potassium 3.1 L, Chloride 96 L, Carbon Dioxide 33.0 H, Anion Gap 8, BUN 16, Creatinine 0.95, Estim Creat Clear Calc 54.78, Est GFR (MDRD) Af Amer 97, Est GFR (MDRD) Non-Af 80, BUN/Creatinine Ratio 16.9, Glucose 151 H, Calcium 8.4 L Micro: Microbiology 11/18/23 00:33 Mucosa - Nose SARS-CoV-2, Influenza & RSV (PCR) - Final Radiography Diagnostic Testing: Radiology Impression Chest X-Ray 11/20/23 06:00 IMPRESSION: Moderate pleural effusions with diffuse pulmonary edema and bibasilar atelectasis. Findings may indicate CHF. Electronically Signed: Jorje Lee MD at 7:14 EDT , Physical Exam Const alert, oriented x3, no apparent distress and average body habitus Constitutional Narrative: Pleasant elderly male, moderately fatigued appearing, slightly worse than previous days, mild increased work of breathing noted on 8 L high flow nasal cannula with mild conversational dyspnea, otherwise sitting up comfortably in bed, mentating appropriately and answering questions appropriately. General Appearance: cooperative and comfortable HEENT normocephalic, head/scalp atraumatic, hearing grossly normal bilaterally, nasal mucous membranes and turbinates normal and moist oral mucous membranes Eyes PERRL, EOMs intact bilaterally and conjunctivae normal Neck full ROM Chest inspection of chest normal Resp normal respiratory effort and no use of accessory muscles Resp Narrative: Significantly decreased breath sounds in bilateral lung bases with crackles noted in central airways, worse than previous days. No wheezing noted. Mild increased work of breathing noted on 8 L high flow nasal cannula at rest. Cardio regular rate, regular rhythm, no murmurs and peripheral pulses 2+ throughout GI normal to inspection, nondistended, normoactive bowel sounds, soft to palpation, non-tender and non-distended Back/Spine normal ROM Extremity normal to inspection, full ROM and no pedal edema Skin no rashes or lesions noted Neuro no focal motor deficits and no sensory deficits noted Speech: speech normal Psych mental status grossly normal Assessment & Plan Assessment/Plan (1) Acute diastolic heart failure: (2) Pleural effusion due to CHF (congestive heart failure): (3) Hypoxia: PLAN: Plan Patient is an 88-year-old male who presented [facility] ED on 11/18/2023 with worsening shortness of breath. 1. Acute HFpEF exacerbation with bilateral pleural effusions with acute hypoxia ? Presented with significant shortness of breath and orthopnea. Chest imaging showed significant bilateral pleural effusions with pulmonary edema. Did require BiPAP on admission for a few hours, then transitioned off to low-flow nasal cannula and did well. Was treated with intermittent IV Lasix with seemingly good urine output and some improvement. However, on evening of 11/18 and morning of 11/19 patient was noted to have worsening orthopnea and worsening oxygen requirements. Repeat chest x-ray on 11/19 showed worsening volume overload with larger bilateral pleural effusions than on admission. Patient was transitioned to IV Lasix drip at 10 mg/hr 11/19. May catheter placed for accurate I's and O's. Radiology consulted for therapeutic thoracentesis. S/p left-sided thoracentesis on 11/19 with 1750 ml removed. Repeat chest x-ray postthoracentesis with significant improvement in left sided lung aeration. Did have very small pneumothorax as noted below. Planning for right-sided therapeutic thoracentesis tomorrow. Continue to monitor closely. 2. Known moderate pericardial effusion, stable ? Echo on admit showed a moderate pericardial effusion with no tamponade features. This is stable in appearance compared to echo from 04/2023. Continue outpatient follow-up with [facility] cardiothoracic surgery. 3. Small postthoracentesis left-sided pneumothorax ? Chest x-ray post left-sided thoracentesis on 11/19 showed small postprocedure left apical pneumothorax. No need for transfer for cardiothoracic surgery evaluation at this time. Will repeat chest x-ray tomorrow morning for further monitoring. 4. CML ? Follows with Dr. Persaud. Diagnosed many years ago. Was on Gleevac for about 6 years; was switched to Tasigna very recently and first dose was on Monday 11/13. Suspected that this new medication may be the cause of his acute heart failure exacerbation as noted above, holding this medication. Will reach out to Dr. Persaud tomorrow for recommendations moving forward. Chronic medical conditions: ? Chronic A-fib: Not on anticoagulation due to history of GI bleed. Rate controlled on admit. Continue home propranolol and verapamil. ? History of LLE DVT s/p IVC filter ? Hypertension: Stable. Continue home propranolol. ? Chronic iron deficiency anemia: Hemoglobin 10.8 on admit, decreased to 8.7 on hospital day 2 but then stable. Baseline hemoglobin around 9-10. Stable. ? Osteoarthritis: Tylenol as needed. ? GERD: Continue home PPI. DVT prophylaxis: SCDs CODE STATUS: DNR CCA, DNI Expected disposition: Home, 2 to 3 days Total clinical time spent by myself addressing the patient's medical issues, reviewing all the data, and collaborating with patient's care team: 35 minutes. Charges/Coding Visit Charges Inpatient E&M: 81555 Subs Hosp L2
[2023-11-20] MEDS: Lidocaine 2% (20 ml mdv) 20 ML Vial INFILT (12:10)
--- NOTE | 2023-11-20 12:20 | RAD_ITS ---
STUDY: X-RAY CHEST REASON FOR EXAM: Male, 88 years old. Post thoracentesis TECHNIQUE: AP inspiration and expiration views. COMPARISON: Comparison is made with prior study dated November 20, 2023. FINDINGS: The patient is status post left thoracentesis. There is evidence of a small left apical pneumothorax. The patient is asymptomatic. RAD/Chest Insp/Exp 2 View IMPRESSION: Status post left thoracentesis with a small postprocedure left apical pneumothorax. Electronically Signed: Sherwin Aaron MD at 12:39 EDT ,
[2023-11-20 13:14] LABS: Body Fluid Mononuclear WBC # 0.157 10^3/uL; Body Fluid Mononuclear WBC % 76.5 %; Body Fluid Polynuclear WBC # 0.048 10^3/uL; Body Fluid Polynuclear WBC % 23.5 %; Body Fluid Total Cells Counted 0.212 10^3/ul; White Blood Count/Body Fluid 0.205 10^3/uL
[2023-11-20 13:39] LABS: Auto B Fluid Analyzer BKGD Ct COUNTS W/IN LIMITS (W/IN LIMITS); Source- Body Fluid THORACENTESIS
[2023-11-20 13:40] LABS: Appearance/Body Fluid SL CLDY; Color/Body Fluid YELLOW; LDH,Body Fluid 82 Units/L (Not Establ.); Protein, Body Fluid 2.2 g/dL (Not Establ.)
[2023-11-20 14:09] LABS: Red Cell Count/Body Fluid 1211 /mm3
[2023-11-20 14:50] LABS: Body Fluid QC Type(s) BF4,BF5
--- NOTE | 2023-11-20 15:10 | CASEMGMT ---
VENESSA PARKER Assessment Face to Face with patient for initial transition planning/care coordination assessment. VENESSA PARKER introduced self and role at [facility], pt voices understanding. Pt is A&Ox4 and is resting comfortably in the chair and is calm. Care providers, pharmacy, and demographics verified. Admitting dx: AE CHF PCP: Alok Branch Specialists: Hung (Onc), Abbe (Onc @ [facility]), Dr. Dill (Cardio @ [facility]) Preferred Pharmacy: [facility] Insurance: [employer] [facility] Prescription Benefit: Yes LNOK: Cindy Patel (W), Marley Rowe (Dary) Living Arrangements: Pt lives with his in a 2 story home with 5 steps to enter ADLs/IADLs: Ind, shares tasks with Transportation: Self, DME: Cane, BP Cuff, Pulse Ox., Shower chair, grab bars. Pt is currently on supplemental oxygen. A verbal list of local, in-network DME companies provided to the pt at this time. Pt states that he prefers [employer] if he qualifies for home oxygen. HHC/SNF: Denies history or needs Pt?s goal: Home Plan: 6-Click is 18. PT was able to evaluate and states no additional therapy in their note. Pt also states that he does not need or want HHC, OP Tx, or SNF placement. Pt states that he feels safe discharging home once he is medically ready, with the help of his . CM to follow O2. CM to follow to ensure safe DC from [facility]. Gaviota Aponte RN, CM
[2023-11-20 15:26] LABS: Lymphocytes 38 %; Macrophages 10 %; Monocytes 21 %; Neutrophil (Segs) 30 %; Other Cell Type/BF 1 %
[2023-11-21] VITALS (13 sets, daily range): BP systolic 92–151; BP diastolic 50–88; PULSE 65–96; RESP 18–30; TEMP 36.6–37.1; O2SAT 95–100; BMI 25.7
--- NOTE | 2023-11-21 05:55 | RAD_ITS ---
EXAM: XR CHEST, 1 VIEW CLINICAL INDICATION: REASSESS SMALL LEFT SIDED PNEUMOTHORAX TECHNIQUE: Frontal view of the chest. COMPARISON: 11/20/2023. FINDINGS: LUNGS AND PLEURAL SPACES: Slight left apical pneumothorax that may be slightly smaller than on the previous exam. Persistent moderate bilateral pleural effusions and bilateral pulmonary edema. HEART: Cardiomegaly. MEDIASTINUM: Central airways and mediastinal contour are unremarkable. BONES/JOINTS: Unremarkable. No acute fracture. SOFT TISSUES: Unremarkable. RAD/Chest 1 View (Portable) IMPRESSION: 1. Slight left apical pneumothorax that may be slightly smaller than on the previous exam. 2. Persistent moderate bilateral pleural effusions and bilateral pulmonary edema. 3. Cardiomegaly. Electronically Signed: Cali Nielsen MD at 5:56 EDT ,
[2023-11-21 07:53] LABS: Anion Gap 4 (5-15); BUN 22 mg/dL (7-18); Calcium,Total 8.2 mg/dL (8.5-10.1); Chloride 97 mmol/L (98-107); Creatinine, Serum 1.16 mg/dL (0.70-1.30); EST Glomerular Filtration Rate 63 mL/min (>60); Est Glom Filt Rate - Afr Amer 77 mL/min (>60); Estimated Creatinine Clearance 44.86 ml/min; Glucose 116 mg/dL (74-106); Potassium 3.1 mmol/L (3.5-5.1); Sodium Level 139 mmol/L (136-145)
[2023-11-21 08:33] LABS: Hematocrit 24.9 % (40-54); Hemoglobin 8.2 g/dL (13.0-16.5); Mean Corp Hgb Conc 32.9 g/dL (32-36); Mean Corpuscular Hgb 31.1 pg (27.0-32.0); Mean Corpuscular Volume 94.3 fL (80-94); Mean Platelet Vol. 10.7 fl (6.2-12.0); Platelet Count 241 K/mm3 (150-450); RBC Distribution Width CV 13.8 % (11.6-14.6); RBC Distribution Width SD 47.8 fl (35.1-43.9); Red Blood Count 2.64 M/mm3 (4.6-6.2); White Blood Count 7.5 K/mm3 (4.4-11.0)
--- NOTE | 2023-11-21 08:49 | ECHOL_ITS ---
Version 2 Reason For Study: Re-evaluate Pericardial Effusion and EF Procedure This was a limited 2D transthoracic echocardiogram. Exam performed portable in patient room. Left Ventricle Normal LV size. Mild concentric left ventricular hypertrophy. The left ventricular ejection fraction is 60 %. Right Ventricle Normal RV size. Early diastolic collapse. Atria The left atrium is severely enlarged. The right atrium is mildly enlarged. Mitral Valve Mild mitral annular calcification. Chordal calcification noted. Moderate (2+) mitral valve insufficiency. Tricuspid Valve Normal tricuspid valve. Aortic Valve Trisinus/trileaflet aortic valve. Pulmonic Valve The pulmonic valve is not well visualized. Pericardium/Pleural Moderate pericardial effusion. Large left pleural effusion. MMode/2D Measurements & Calculations LVIDd: 4.4 cm IVSd: 1.4 cm LVAd ap4: 24.2 cm2 LVIDs: 2.0 cm LVPWd: 1.3 cm LVLd ap4: 7.7 cm FS: 53.3 % EDV(MOD-sp4): 65.6 ml EDV(sp4-el): 64.9 ml LVAs ap4: 14.5 cm2 LVLs ap4: 6.8 cm ESV(MOD-sp4): 28.6 ml ESV(sp4-el): 26.3 ml EF(MOD-sp4): 56.4 % EF(sp4-el): 59.4 % SV(MOD-sp4): 37.0 ml SV(sp4-el): 38.6 ml ECHO/Echo, Limited Study Interpretation Summary Mild concentric left ventricular hypertrophy. The left ventricular ejection fraction is 60 %. The left atrium is severely enlarged. The right atrium is mildly enlarged. Moderate (2+) mitral valve insufficiency. Moderate anterior pericardial effusion noted. Early diastolic collapse of the r ight ventricle and right atrium suggestive of early tamponade. Study from 11/18/2023 was reviewed. Present study shows no significant change. Large left pleural effusion. Ordering Physician: Javid Bland Performed By: Edson Dukes RCS
[2023-11-21] MEDS: Verapamil SR 240 MG Tablet PO (10:58)
[2023-11-21] MEDS: Propranolol 10 MG Tablet PO (10:58)
[2023-11-21] MEDS: Cholecalciferol (VIT D3) 25 MCG TABLET (1,000 UNITS) PO (10:58)
[2023-11-21] MEDS: Potassium Chloride Oral Tablet 20 MEQ 40 MEQ PO (10:58)
[2023-11-21] MEDS: Pantoprazole Sodium 20 MG Tablet PO (10:58)
[2023-11-21] MEDS: Magnesium Chloride 64 MG Delay Rel.Tablet 128 MG PO (10:59)
[2023-11-21] MEDS: Potassium Chloride Oral Tablet 20 MEQ PO ×2 (10:59→16:10)
[2023-11-21] MEDS: Lidocaine 2% (20 ml mdv) 20 ML Vial INFILT (12:05)
--- NOTE | 2023-11-21 12:15 | RAD_ITS ---
STUDY: X-RAY CHEST REASON FOR EXAM: Male, 88 years old. Post thora TECHNIQUE: AP inspiration and expiration views. COMPARISON: Comparison is made with prior study dated November 21, 2023 at 5:02 AM. FINDINGS: The patient is status post right thoracentesis. No evidence of pneumothorax. Residual tiny left apical pneumothorax. RAD/Chest Insp/Exp 2 View IMPRESSION: Status post right thoracentesis. No evidence of pneumothorax. Persistent tiny left apical pneumothorax. Electronically Signed: Sherwin Aaron MD at 12:28 EDT ,
--- NOTE | 2023-11-21 12:32 | PCM.OP.PRO ---
Procedure Report Date of Procedure: 11/21/23 Assessment & Plan Assessment/Plan (1) Pleural effusion due to CHF (congestive heart failure): PLAN: PROCEDURE: Ultrasound Guided Thoracentesis ORDERING PROVIDER: Dr. Bland INDICATION: Male, 88 years old. Right pleural effusion. PROVIDER: MICHELLE Rojas PROCEDURE: The risks, benefits, and alternatives to the procedure were explained to the patient. The specific risks of bleeding, infection, and pneumothorax requiring chest tube insertion were discussed and accepted. Written informed consent was obtained. The patient was placed in the sitting, upright position. Ultrasonographic evaluation of the bilateral lower pleural spaces was carried out. An adequate pocket was identified in the right lower pleural space.The overlying skin was prepped and draped in sterile fashion. 2% lidocaine was administered subcutaneously for local anesthesia. Under ultrasound guidance, a 5-Georgian thoracentesis needle/catheter system was advanced into the right posterior lower pleural fluid collection. 2150 ml of clear yellow colored fluid was drained. The catheter was removed, and a sterile dressing was applied. The patient tolerated the procedure well. A chest x-ray was ordered. IMPRESSION: Successful ultrasound-guided thoracentesis of right pleural effusion. Procedures Radiology Radiology US Procedures: [id number] Thoracentesis
--- NOTE | 2023-11-21 12:45 | PN.HOSP_ITS ---
Reason for Visit Reason for Visit: Diagnoses Chronic myeloid leukemia, BCR/ABL-positive, not having achieved remission (11/18/23) Essential (primary) hypertension (11/18/23) Pulmonary hypertension, unspecified (11/18/23) Other pericardial effusion (noninflammatory) (11/18/23) Nonrheumatic mitral (valve) insufficiency (11/18/23) Acute diastolic (congestive) heart failure (11/18/23) Heart failure, unspecified (11/18/23) Acute respiratory failure with hypoxia (11/18/23) Hypoxemia (11/18/23) Personal history of other diseases of the circulatory system (11/18/23) Subjective Subjective Saw patient at bedside this morning. Patient was breathing comfortably on 5 L nasal cannula at rest. He reported continuing to feel improved this morning from yesterday when he had the left-sided thoracentesis done. He otherwise denies any new concerns today. Importantly, obtained repeat limited echocardiogram to reassess patient's pericardial effusion. Talked with Dr. Keene who read the echo and he noted that patient has early signs of cardiac tamponade. He actually looked at the initial echo that was done on 11/17 and noted that there were early signs of tamponade at that time too. Dr. Keene recommended that patient be transferred to a tertiary care center for cardiothoracic surgery evaluation for possible pericardial window versus pericardiocentesis. Discussed with patient and patient's daughter over the phone and they were agreeable with this. Patient follows with Dr. Ward with cardiothoracic surgery at [facility] so they preferred being transferred there. Was able to get patient accepted for a bed in the CVICU there and patient will be transferred over there this evening. Objective Data Objective Data Vital Signs: Vital Signs Temp Pulse Resp BP Pulse Ox O2 Del Method O2 Flow Rate 98.5 F 92 18 137/75 H 99 Nasal Cannula 5 11/21/23 10:55 11/21/23 10:55 11/21/23 10:55 11/21/23 10:55 11/21/23 10:55 11/21/23 10:55 11/21/23 10:55 FiO2 94 11/20/23 02:51 Oxygen Flow Rate (L/min) 5 Oxygen Delivery Method Nasal Cannula Weight: 79 kg Body Mass Index (BMI) 25.7 Intake & Output: Intake and Output for Last 24 Hours 11/19/23 11/20/23 11/21/23 23:59 23:59 23:59 Intake Total 1240 / 1240 1270 / 1270 Output Total 2445 / 2445 4575 / 4575 700 / 700 Balance -1205 / -1205 -3305 / -3305 -700 / -700 Lab / Micro Data 11/21/23 06:10 11/21/23 06:10 Labs: Laboratory Results - last 24 hr 11/20/23 12:42: Fluid Source THORACENTESIS, Fluid Color YELLOW, Fluid Appearance SL CLDY, Fluid WBC 0.205, Fluid RBC 1211, Fluid Tot Cell Count 0.212, Fld Polynuclear WBCs # 0.048, Fld Polynuclear WBCs % 23.5, Fluid Mononuclear WBCs 0.157, Fld Mononuclear WBCs % 76.5, Fluid Neutrophils 30, Fluid Lymphocytes 38, Fluid Monocytes 21, Fluid Macrophages 10, Fluid Other Cells 1, Fl Pathologist Comment May follow, Fluid Total Protein 2.2, Fluid LDH 82, Fluid Comment 2 SEE COMMENT 11/21/23 06:10: WBC 7.5, RBC 2.64 L, Hgb 8.2 L, Hct 24.9 L, MCV 94.3 H, MCH 31.1, MCHC 32.9, RDW Std Deviation 47.8 H, RDW Coeff of Jessica 13.8, Plt Count 241, MPV 10.7, Sodium 139, Potassium 3.1 L, Chloride 97 L, Carbon Dioxide 38.0 H, A nion Gap 4 L, BUN 22 H, Creatinine 1.16, Estim Creat Clear Calc 44.86, Est GFR (MDRD) Af Amer 77, Est GFR (MDRD) Non-Af 63, BUN/Creatinine Ratio 19.0, Glucose 116 H, Calcium 8.2 L Micro: Microbiology 11/18/23 00:33 Mucosa - Nose SARS-CoV-2, Influenza & RSV (PCR) - Final Radiography Diagnostic Testing: Radiology Impression Thoracentesis Ultrasound 11/20/23 07:41 IMPRESSION: Ultrasound-guided left thoracentesis. Electronically Signed: Sherwin Aaron MD at 14:29 EDT , Chest X-Ray 11/21/23 05:55 IMPRESSION: 1. Slight left apical pneumothorax that may be slightly smaller than on the previous exam. 2. Persistent moderate bilateral pleural effusions and bilateral pulmonary edema. 3. Cardiomegaly. Electronically Signed: Cali Nielsen MD at 5:56 EDT , Chest X-Ray 11/21/23 12:15 IMPRESSION: Status post right thoracentesis. No evidence of pneumothorax. Persistent tiny left apical pneumothorax. Electronically Signed: Sherwin Aaron MD at 12:28 EDT , Physical Exam Const alert, oriented x3, no apparent distress and average body habitus Constitutional Narrative: Pleasant elderly male, mildly fatigued appearing, improved from yesterday, sitting up comfortably in bed and conversing normally, no acute distress. General Appearance: cooperative and comfortable HEENT normocephalic, head/scalp atraumatic, hearing grossly normal bilaterally, nasal mucous membranes and turbinates normal and moist oral mucous membranes Eyes PERRL, EOMs intact bilaterally and conjunctivae normal Neck full ROM Chest inspection of chest normal Resp normal respiratory effort and no use of accessory muscles Resp Narrative: Much improved breath sounds in left lung base postthoracentesis. Right lung base up to mid chest still with significantly decreased breath sounds. Patient breathing comfortably on 5 L nasal cannula at rest. No wheezing noted. Cardio regular rate, regular rhythm, no murmurs and peripheral pulses 2+ throughout GI normal to inspection, nondistended, normoactive bowel sounds, soft to palpation, non-tender and non-distended Back/Spine normal ROM Extremity normal to inspection, full ROM and no pedal edema Skin no rashes or lesions noted Neuro no focal motor deficits and no sensory deficits noted Speech: speech normal Psych mental status grossly normal Assessment & Plan Assessment/Plan (1) Acute diastolic heart failure: (2) Pleural effusion due to CHF (congestive heart failure): (3) Hypoxia: PLAN: Plan Patient is an 88-year-old male who presented [facility] ED on 11/18/2023 with worsening shortness of breath. 1. Acute HFpEF exacerbation with bilateral pleural effusions with acute hypoxia ? Presented with significant shortness of breath and orthopnea. Chest imaging showed significant bilateral pleural effusions with pulmonary edema. Did require BiPAP on admission for a few hours, then transitioned off to low-flow nasal cannula and did well. Was treated with intermittent IV Lasix with seemingly good urine output and some improvement. However, patient had worsening respiratory status and volume overload noted on 11/19. Had left-sided thoracentesis done on 11/19 with 1750 ml removed. Had right-sided thoracentesis done on 11/20 again with significant volume removed. Suspected that patient's pericardial effusion with early tamponade is strong as contributor to his worsening volume overload, planning for transfer to [facility] as noted below. Patient stable on low-flow nasal cannula after both thoracenteses. Lasix drip discontinued on 11/20 to prevent decreased preload in setting of early tamponade. Monitor. 2. Known moderate pericardial effusion, now with concern for early signs of tamponade ? Echo on admit showed a moderate pericardial effusion with no tamponade features noted. 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 Has followed with Dr. Ward with [facility] cardiothoracic surgery. Last echo report in our system is from April and effusion appeared stable then. Per patient and family, he apparently had a repeat echo done in August and this again was stable from previous. Patient had worsening status as noted above so repeat limited echo was obtained on 11/20; per Dr. Keene, this echo shows early diastolic collapse of the RV and RA suggestive of early tamponade. Cardiology recommended that he be transferred to a tertiary care center for further evaluation. Transfer planned to [facility] this evening. 3. Small postthoracentesis left-sided pneumothorax, stable ? Chest x-ray post left-sided thoracentesis on 11/19 showed small postprocedure left apical pneumothorax. Stable on chest x-ray on 11/20. 4. CML ? Follows with Dr. Persaud. Diagnosed many years ago. Was on Gleevac for about 6 years; was switched to Tasigna very recently and first dose was on Monday 11/13. Suspected that this new medication may be the cause of his acute heart failure exacerbation as noted above, holding this medication. Will follow-up closely with Dr. Persaud after hospital discharge. Chronic medical conditions: ? Chronic A-fib: Not on anticoagulation due to history of GI bleed. Rate controlled on admit. Continue home propranolol and verapamil. ? History of LLE DVT s/p IVC filter ? Hypertension: Stable. Continue home propranolol. ? Chronic iron deficiency anemia: Hemoglobin 10.8 on admit, decreased to 8.7 on hospital day 2 but then stable. Baseline hemoglobin around 9-10. Stable. ? Osteoarthritis: Tylenol as needed. ? GERD: Continue home PPI. DVT prophylaxis: SCDs CODE STATUS: DNR CCA, DNI Expected disposition: Transfer to [facility] Total clinical time spent by myself addressing the patient's medical issues, reviewing all the data, and collaborating with patient's care team: 35 minutes. Charges/Coding Visit Charges Inpatient E&M: 58863 Subs Hosp L2
[2023-11-21 13:29] LABS: Pathologist Comment/Body Fluid Reviewed
[2023-11-21] MEDS: Lactated Ringers 1,000 ML 150 ML IV (16:11)
--- NOTE | 2023-11-21 16:43 | DS.PCM_ITS ---
Providers Date of Admission: 11/18/23 Date of Discharge: 11/21/23 Primary Care Physician: Dr. Alok Branch MD Reason For Visit: AE CHF, PERICARDIAL EFFUSION AND ACUTE HYPOXIC Diagnosis Discharge Diagnosis (1) Acute diastolic heart failure: Status: Acute Code(s): I50.31 - Acute diastolic (congestive) heart failure (2) Pleural effusion due to CHF (congestive heart failure): Status: Acute Code(s): I50.9 - Heart failure, unspecified (3) Hypoxia: Status: Acute Code(s): R09.02 - Hypoxemia Medications at Discharge Home Medications cholecalciferol (vitamin D3) 25 mcg (1,000 unit) tablet 25 mcg PO DAILY supplement 06/10/19 cyanocobalamin (vitamin B-12) 1,000 mcg/mL injection solution 1,000 mcg IJ .Q2MO supplement 06/10/19 propranolol 10 mg tablet 10 mg PO DAILY hypertension 06/10/19 pantoprazole 20 mg tablet,delayed release 20 mg PO DAILY indigestion 03/03/23 verapamil 240 mg 24 hr capsule,extended release 240 mg PO DAILY unknown 03/03/23 furosemide 20 mg tablet 20 mg PO Q OTHER DAY diuretic 07/10/23 lorazepam 0.5 mg tablet 0.5 mg PO Q6H PRN nausea and vomiting 07/10/23 Hospital Course Operations None Procedures EKG, Thoracentesis (x 2 (1 on left, 1 on right- ~1700 cc fluid removed with both)), Transthoracic echo (X 2) and - (Chest x-ray x 5, CTA chest) Summary of Care Provided Minutes Spent on Discharge: 35 Hospital Course: Patient is an 88-year-old male who presented [facility] ED on 11/18/2023 with worsening shortness of breath. Hospital course as noted below. Patient transferred to [facility] on 11/21/2023 for further management. 1. Acute HFpEF exacerbation with bilateral pleural effusions with acute hypoxia ? Presented with significant shortness of breath and orthopnea. Chest imaging showed significant bilateral pleural effusions with pulmonary edema. Did require BiPAP on admission for a few hours, then transitioned off to low-flow nasal cannula and did well. Was treated with intermittent IV Lasix with seemingly good urine output and some improvement. However, patient had worsening respiratory status and volume overload noted on 11/19. Had left-sided thoracentesis done on 11/19 with 1750 ml removed. Had right-sided thoracentesis done on 11/20 again with significant volume removed. Suspected that patient's pericardial effusion with early tamponade is strong as contributor to his worsening volume overload. Patient stable on low-flow nasal cannula after both thoracenteses. Lasix drip discontinued on 11/20 to prevent decreased preload in setting of early tamponade. Transferred to [facility] on 11/20 for further management. 2. Known moderate pericardial effusion, now with concern for early signs of tamponade ? Echo on admit showed a moderate pericardial effusion with no tamponade features noted. 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 Has followed with Dr. Ward with [facility] cardiothoracic surgery. Last echo report in our system is from April and effusion appeared stable then. Per patient and family, he apparently had a repeat echo done in August and this again was stable from previous. Patient had worsening status as noted above so repeat limited echo was obtained on 11/20; per Dr. Keene, this echo shows early diastolic collapse of the RV and RA suggestive of early tamponade. Cardiology recommended that he be transferred to a tertiary care center for further evaluation. Transferred on 11/20 as noted above. 3. Small postthoracentesis left-sided pneumothorax, stable ? Chest x-ray post left-sided thoracentesis on 11/19 showed small postprocedure left apical pneumothorax. Stable on chest x-ray on 11/20. 4. CML ? Follows with Dr. Persaud. Diagnosed many years ago. Was on Gleevac for about 6 years; was switched to Tasigna very recently and first dose was on Monday 11/13. Suspected that this new medication may be the cause of his acute heart failure exacerbation as noted above, holding this medication. Will follow-up closely with Dr. Persaud after hospital discharge. Chronic medical conditions: ? Chronic A-fib: Not on anticoagulation due to history of GI bleed. Rate controlled on admit. Continue home propranolol and verapamil. ? History of LLE DVT s/p IVC filter ? Hypertension: Stable. Continue home propranolol. ? Chronic iron deficiency anemia: Hemoglobin 10.8 on admit, decreased to 8.7 on hospital day 2 but then stable. Baseline hemoglobin around 9-10. Stable. ? Osteoarthritis: Tylenol as needed. ? GERD: Continue home PPI. Total clinical time spent by myself addressing the patient's medical issues, reviewing all the data, and collaborating with patient's care team: 35 minutes. Physical Exam Const alert, oriented x3, no apparent distress and average body habitus Constitutional Narrative: Pleasant elderly male, mildly fatigued appearing, improved from yesterday, sitting up comfortably in bed and conversing normally, no acute distress. General Appearance: cooperative and comfortable HEENT normocephalic, head/scalp atraumatic, hearing grossly normal bilaterally, nasal mucous membranes and turbinates normal and moist oral mucous membranes Eyes PERRL, EOMs intact bilaterally and conjunctivae normal Neck full ROM Chest inspection of chest normal Resp normal respiratory effort and no use of accessory muscles Resp Narrative: Much improved breath sounds in left lung base postthoracentesis. Right lung base up to mid chest still with significantly decreased breath sounds. Patient breathing comfortably on 5 L nasal cannula at rest. No wheezing noted. Cardio regular rate, regular rhythm, no murmurs and peripheral pulses 2+ throughout GI normal to inspection, nondistended, normoactive bowel sounds, soft to palpation, non-tender and non-distended Back/Spine normal ROM Extremity normal to inspection, full ROM and no pedal edema Skin no rashes or lesions noted Neuro no focal motor deficits and no sensory deficits noted Speech: speech normal Psych mental status grossly normal Weight / BMI Weight Weight: 79 kg Body Mass Index (BMI) 25.7 ABG / Lab / Microbiology Data 11/21/23 06:10 11/21/23 06:10 Laboratory: Laboratory Results - last 24 hr 11/20/23 12:42: Fl Pathologist Comment Reviewed 11/21/23 06:10: WBC 7.5, RBC 2.64 L, Hgb 8.2 L, Hct 24.9 L, MCV 94.3 H, MCH 31.1, MCHC 32.9, RDW Std Deviation 47.8 H, RDW Coeff of Jessica 13.8, Plt Count 241, MPV 10.7, Sodium 139, Potassium 3.1 L, Chloride 97 L, Carbon Dioxide 38.0 H, A nion Gap 4 L, BUN 22 H, Creatinine 1.16, Estim Creat Clear Calc 44.86, Est GFR (MDRD) Af Amer 77, Est GFR (MDRD) Non-Af 63, BUN/Creatinine Ratio 19.0, Glucose 116 H, Calcium 8.2 L Microbiology: Microbiology 11/18/23 00:33 Mucosa - Nose SARS-CoV-2, Influenza & RSV (PCR) - Final Radiography Diagnostic Testing: Radiology Impression Chest X-Ray 11/21/23 05:55 IMPRESSION: 1. Slight left apical pneumothorax that may be slightly smaller than on the previous exam. 2. Persistent moderate bilateral pleural effusions and bilateral pulmonary edema. 3. Cardiomegaly. Electronically Signed: Cali Nielsen MD at 5:56 EDT , Echocardiogram 11/21/23 08:49 Interpretation Summary Mild concentric left ventricular hypertrophy. The left ventricular ejection fraction is 60 %. The left atrium is severely enlarged. The right atrium is mildly enlarged. Moderate (2+) mitral valve insufficiency. Moderate anterior pericardial effusion noted. Early diastolic collapse of the right ventricle and right atrium suggestive of early tamponade. Study from 11/18/2023 was reviewed. Present study shows no significant change. Large left pleural effusion. Ordering Physician: Javid Bland Performed By: Edson Dukes RCS Chest X-Ray 11/21/23 12:15 IMPRESSION: Status post right thoracentesis. No evidence of pneumothorax. Persistent tiny left apical pneumothorax. Electronically Signed: Sherwin Aaron MD at 12:28 EDT , D/C Instructions Discharge Diet: No restrictions Meaningful Use Info Meaningful Use Meaningful Use Diagnoses (Choose all that apply): None applicable Ischemic Stroke Statin Dosing Therapy Reference: STATIN DOSE THERAPY REFERENCE: * Patients > 75 years receive moderate or high dose statin therapy. * Patients 75 years or YOUNGER should receive HIGH intensity statin dose unless contraindicated. You will be required to document reason for non-treatment if statin daily dose does not meet guidelines. HIGH DOSE STATIN THERAPY DAILY Atorvastatin > than or = to 40 mg Rosuvastatin > than or = to 20 mg Amlodipine + Atorvastatin > than or = to 2.5/40 mg Ezetimibe + Simvastatin 10/80 mg Simvastatin 80mg Discharge Plan Admission Admit Date/Time: 11/18/23 02:51 Primary Reason for Your Visit: Heart failure exacerbation Attending Provider: Javid Bland Primary Care Provider: Alok Branch Consulting Providers: Chris Murray Discharge Orders/Prescriptions Prescriptions: Continued verapamil 240 mg capsule,ext rel. pellets 24 hr 240 mg PO DAILY furosemide 20 mg tablet 20 mg PO Q OTHER DAY Patient Comments: Take 1 tablet by mouth every other day. lorazepam 0.5 mg tablet 0.5 mg PO Q6H PRN (Reason: nausea and vomiting) propranolol 10 MG tablet 10 mg PO DAILY cyanocobalamin (vitamin B-12) 1,000 MCG/ML solution 1,000 mcg IJ .Q2MO cholecalciferol (vitamin D3) 25 MCG tablet 25 mcg PO DAILY pantoprazole 20 mg tablet,delayed release (DR/EC) 20 mg PO DAILY Patient Comments: TAKE 1 TABLET BY MOUTH EVERY DAY before BREAKFAST. Take ONE-HALF hour before BREAKFAST. Discontinued imatinib [Gleevec] 400 mg Tablet 600 mg PO DAILY Tasigna 200 mg capsule 300 mg PO Q12H Rx Instructions: must be taken on empty stomach; no food at least 2 hrs before or 1 hr after dose Referrals / Follow Up: Alok Branch MD [Primary Care Provider] - Disposition Disposition (needs filled in before D/C Order can be placed): Acute Care Hospital Charges/Coding Visit Charges Inpatient E&M: 83882 Disch Hosp >30min
--- NOTE | 2023-11-21 17:23 | NURSING ---
Report called to Nurse at [facility] CVICU.
== END 2023-11-21 18:02 | disposition short-term general hospital (02) | DRG 291 ==
LOC: ED 01:20 → PCU 04:44
PROVIDERS: Admitting Provider Internal Medicine; Emergency Provider Emergency Medicine; PCP Family Medicine; Visit Provider Hospitalist
DX: I13.0 Hypertensive heart and chronic kidney disease with heart failure and stage 1 through stage 4 chronic kidney disease, or unspecified chronic kidney disease (principal); J96.01 Acute respiratory failure with hypoxia; I50.31 Acute diastolic (congestive) heart failure; I31.39 Other pericardial effusion (noninflammatory); C92.10 Chronic myeloid leukemia, BCR/ABL-positive, not having achieved remission; I48.20 Chronic atrial fibrillation, unspecified; J90 Pleural effusion, not elsewhere classified; J98.11 Atelectasis; J91.8 Pleural effusion in other conditions classified elsewhere; J95.811 Postprocedural pneumothorax; N18.31 Chronic kidney disease, stage 3a; I27.20 Pulmonary hypertension, unspecified; D50.9 Iron deficiency anemia, unspecified; I34.0 Nonrheumatic mitral (valve) insufficiency; F32.A Depression, unspecified; K44.9 Diaphragmatic hernia without obstruction or gangrene; K21.9 Gastro-esophageal reflux disease without esophagitis; I25.10 Atherosclerotic heart disease of native coronary artery without angina pectoris; E78.5 Hyperlipidemia, unspecified; M19.90 Unspecified osteoarthritis, unspecified site; Z87.891 Personal history of nicotine dependence; Z66 Do not resuscitate; Z51.5 Encounter for palliative care; Z82.3 Family history of stroke; Z80.0 Family history of malignant neoplasm of digestive organs; E66.3 Overweight; Z68.28 Body mass index [BMI] 28.0-28.9, adult
CPT/HCPCS: 32555; 36415; 36600; 71045; 71046; 71275; 80048; 80061; 82803; 83615; 83735; 83880; 84100; 84157; 84484; 85025; 85027; 85610; 85730; 87631; 88108; 88305; 88313; 89050; 93005; 93306; 93308; 94002; 94760; 94762; 97162; 97166; 97530; 99285; J7030; J7120; Q9957; Q9967; A4216; J1940

== ENCOUNTER → 2023-11-20 | Outpatient (CLI) | payer MEDICARE, SELFPAY | END | disposition home or self-care (01) | LOC: LABSPEC 12:47 | PROVIDERS: PCP Family Medicine; Visit Provider Hospitalist | DX: J90 Pleural effusion, not elsewhere classified (principal) ==

== ENCOUNTER 2024-06-27 17:02 | Inpatient (IN) | payer MEDICARE, SELFPAY ==
[2024-06-27] VITALS (9 sets, daily range): BP systolic 128–181; BP diastolic 58–84; PULSE 96–120; RESP 12–22; TEMP 36.7; O2SAT 98–100; BMI 24.5
--- NOTE | 2024-06-27 17:05 | RAD_ITS ---
PROCEDURE: CHEST 1 VIEW (PORTABLE) REASON FOR EXAM: Midsternal pain. TECHNIQUE: Frontal view of the chest. COMPARISON: 11/21/2023. FINDINGS: The cardiac and mediastinal contours are normal. Small [id number]-oyve-right pleural effusions. Mild vascular indistinctness the lung bases suggestive of mild edema. No pneumothorax. RAD/Chest 1 View (Portable) IMPRESSION: [id number]-ccug-right pleural effusions. Probable mild edema. Reading Location: [id number]
--- NOTE | 2024-06-27 17:05 | EKG12_ITS ---
Test Reason : AM EKG Blood Pressure : */* mmHG Vent. Rate : 89 BPM Atrial Rate : 89 BPM P-R Int : 170 ms QRS Dur : 88 ms QT Int : 388 ms P-R-T Axes : 40 11 34 degrees QTcB Int : 472 ms Normal sinus rhythm Low voltage QRS Borderline ECG Confirmed by AIDA BARROSO ([id number]), video tape editor BIRDIE RUIZ ([id number]) on 06/28/2024 2:37:07 PM Referred By: Cresencio Olsen Confirmed By: AIDA BARROSO
[2024-06-27 17:32] LABS: Absolute Lymphocyte Count 1.57 X10^3/uL (0.83-4.51); Absolute Neutrophil Count 5.1 X10^3/uL (2.0-7.7); Basophil# 0.03 X10^3/uL; Basophil% 0.4 % (0-1); Eosinophil# 0.05 X10^3/uL; Eosinophils% 0.7 % (0-5); Hematocrit 34.1 % (40-54); Hemoglobin 10.9 g/dL (13.0-16.5); Lymphocyte # 1.57 X10^3/ul (0.83-4.51); Mean Corpuscular Hgb 31.6 pg (27.0-32.0); Mean Corpuscular Volume 98.8 fL (80-94); Mean Platelet Vol. 9.8 fl (6.2-12.0); Monocyte# 0.39 X10^3/uL; Monocyte% 5.5 % (0-10); NRBC Flagged by Analyzer 0 % (0-5); Neutrophil % 71.3 % (47-70); Platelet Count 280 K/mm3 (150-450); RBC Distribution Width CV 14.3 % (11.6-14.6); RBC Distribution Width SD 51.3 fl (35.1-43.9); Red Blood Count 3.45 M/mm3 (4.6-6.2); White Blood Count 7.2 K/mm3 (4.4-11.0)
[2024-06-27 17:50] LABS: Anion Gap 7 (5-15); BUN 18 mg/dL (7-18); Calcium,Total 8.4 mg/dL (8.5-10.1); Chloride 106 mmol/L (98-107); EST Glomerular Filtration Rate 61 mL/min (>60); Est Glom Filt Rate - Afr Amer 74 mL/min (>60); Estimated Creatinine Clearance 43.37 ml/min; Glucose 198 mg/dL (74-106); Potassium 3.4 mmol/L (3.5-5.1); Sodium Level 137 mmol/L (136-145); Troponin-I HS (w/2H Reflex) 59 pg/mL (3.0-78.0)
--- NOTE | 2024-06-27 18:47 | EX.ED.DYSGE1 ---
HPI History of Present Illness Chief Complaint: Chest Pain Informant: patient Narrative Narrative: 88-year-old male presenting to the emergency room with upper abdominal pain. Patient states he has a history of peptic ulcer disease as well as CML. He states that tonight after eating some chicken nuggets and mashed potatoes he developed a discomfort in the upper abdomen that is feels different than his typical reflux. He notes that he has been experiencing more gas than normal. He has not had any black or bloody stools. He notes a history of pericardial effusion which has been being monitored and has been improving. He also notes a history of CHF. He denies any chest pain or shortness of breath. He states his heart rate is up because he is very nervous about being here. He has had prior cholecystectomy. No history of pancreatitis. Patient notes that his symptoms have resolved but he did notice it returned when he got up to walk from the waiting room to the room in the ED. He states after resting on the bed for a couple minutes symptoms went away. [facility] Medical History Hiatal hernia Esophageal reflux Pulmonary hypertension Mitral regurgitation Presence of IVC filter Lung nodule Vitamin D deficiency Hypercalcemia Hypokalemia Pericardial effusion Peptic ulcer Iron deficiency anemia Depression Dyslipidemia Choledocholithiasis Allergic rhinitis Epigastric abdominal pain DVT of lower extremity (deep venous thrombosis) CKD (chronic kidney disease) stage 3, GFR 30-59 ml/min CML (chronic myelocytic leukemia) History of atrial fibrillation Pleural effusion Hx of peptic ulcer HTN (hypertension) Hx of venous thrombosis and embolism History of tobacco use Atrial fibrillation Home Medications ?Medication ?Instructions ?Recorded ?Last Taken ?Type cholecalciferol (vitamin D3) 25 25 mcg PO DAILY supplement 06/10/19 11/17/23 History mcg (1,000 unit) tablet cyanocobalamin (vitamin B-12) 1,000 mcg IJ .Q2MO supplement 06/10/19 09/16/23 History 1,000 mcg/mL injection solution propranolol 10 mg tablet 10 mg PO DAILY PRN hypertension 06/10/19 11/17/23 History pantoprazole 20 mg tablet,delayed 20 mg PO DAILY indigestion 03/03/23 06/27/24 History release furosemide 20 mg tablet 20 mg PO Q OTHER DAY diuretic 07/10/23 11/17/23 History lorazepam 0.5 mg tablet 0.5 mg PO Q6H PRN nausea and 07/10/23 Unknown History vomiting imatinib 100 mg tablet (Gleevec) 200 mg PO DAILY 06/27/24 06/27/24 History imatinib 400 mg tablet (Gleevec) 400 mg PO DAILY 06/27/24 06/27/24 History verapamil 120 mg tablet,extended mg PO DAILY 06/27/24 06/26/24 History release Allergy/AdvReac Type Severity Reaction Status Date / Time paroxetine (From Paxil) Allergy Other Verified 06/27/24 17:03 nilotinib (From Tasigna) AdvReac Severe Pleural Verified 06/27/24 17:03 effusion/fluid retention Family History Father Hypertension Brother Colon cancer Sister CVA (cerebral vascular accident) Other Heart disease Surgical History Hx of inguinal hernia repair Hx of cholecystectomy (~2020) History of cardiac radiofrequency ablation (RFA) (~10/16/12) History of partial gastrectomy Hx of arthroscopy of knee History of appendectomy Social History Smoking Status: Former smoker how long ago did patient quit smokin alcohol intake: never substance use type: does not use caffeine: No ROS ROS ED Constitutional Constitutional ED: Denies chills, fever(s) or weight loss Eyes Eyes: Denies change in vision or diplopia ENT ENT ED: Denies ear pain, rhinorrhea or sore throat Cardiovascular Cardiovascular: Denies chest pain, orthopnea, palpitations or racing heartbeat Respiratory/Chest Respiratory/Chest: Denies cough, dyspnea or orthopnea Gastrointestinal Gastrointestinal: Reports abdominal pain; Denies diarrhea, nausea or vomiting Genitourinary Genitourinary ED: Denies dysuria, hematuria or urinary frequency Musculoskeletal Musculoskeletal: Denies arthralgias or myalgias Integumentary Denies abscess or rash Neurologic Neurologic: Denies headache(s) or weakness Psychiatric Psychiatric: Denies anxiety, depression, suicidal ideation or suicidal thoughts Endocrine Endocrinology: Denies polydipsia, polyphagia or polyuria Allergic/Immunologic Allergic/Immunologic ED: Denies mouth swelling, tongue swelling or urticaria EXAM Physical Exam Const Vital Signs: 06/27/24 17:03 06/27/24 18:02 06/27/24 18:20 Temperature 98.0 F Temperature Source Temporal Pulse Rate 114 H 120 H Respiratory Rate 16 12 Blood Pressure 181/79 H 177/84 H Blood Pressure Mean 113 115 Pulse Ox 98 100 100 Oxygen Delivery Method Room Air Room Air Room Air 06/27/24 19:00 06/27/24 20:00 06/27/24 21:00 Temperature Temperature Source Pulse Rate 115 H 104 H 101 H Respiratory Rate 22 H 18 15 Blood Pressure 160/67 H 167/75 H 152/73 H Blood Pressure Mean 98 105 99 Pulse Ox 99 99 99 Oxygen Delivery Method Room Air Room Air 06/27/24 22:00 06/27/24 22:41 Temperature 98.0 F Temperature Source Pulse Rate 99 99 Respiratory Rate 13 13 Blood Pressure 164/70 H 164/70 H Blood Pressure Mean 101 101 Pulse Ox 99 99 Oxygen Delivery Method Room Air Positive well nourished and well developed General Appearance ED: well developed HEENT Reports normocephalic, head/scalp atraumatic and moist mucous membranes Eyes PERRL and EOMs intact bilaterally Neck no lymphadenopathy, supple and no JVD Resp normal respiratory effort and clear to auscultation bilaterally Cardio regular rate, regular rhythm and no murmurs GI normal to inspection, nondistended, normoactive bowel sounds and non-tender Palpation: soft Back/Spine no CVA tenderness and normal ROM Extremity normal to inspection General Extremety ED: Negative for edema General Extremity: Negative for edema Neuro oriented x3 and CN's II-XII intact bilaterally Sensorium / Orientation: alert Motor Exam: strength 5/5 throughout Psych mental status grossly normal Mood & Affect: Negative for depressed or tearful Skin no rashes or lesions noted and no wounds MDM MDM MDM Narrative Medical decision making narrative: Differential diagnosis includes but not limited to GERD cast pancreatitis choledocholithiasis peptic ulcer disease acute coronary syndrome AAA thoracic aortic aneurysm/dissection EKG shows sinus tachycardia rate of 112 bpm. White count 7.2 hemoglobin 10.9 platelet count of 280 troponin is 59 glucose of 198 creatinine 1.20 initial troponin is 59 and his delta troponin is 164. Normal lipase LFTs. CT of abdomen pelvis was obtained read by radiology reviewed by myself. My independent interpretation the chest x-ray is no acute process. I sat down and I spoke with the patient multiple times and for at least 30 minutes discussed the above results and what they could mean. My concern is that given the elevated troponin and his pain which is very atypical for him that this could represent an ACS picture. He is currently asymptomatic and his EKG is nonischemic however. His regional economist is Dr. Beard at [facility] But they are currently experiencing an extremely long wait time for transfers. The patient ended up calling his and family and spoke about this and he is agreeable to stay for cardiology evaluation. I am going to order his third troponin as well as a BNP. I will speak with the hospitalist. History & Record Review Discussion w/independent historian: Patient Additional record(s) reviewed:: Prior labs Lab Data Attestation: I reviewed the patient's lab results. Labs: Laboratory Results - last 24 hr 06/27/24 06/27/24 06/27/24 17:20 17:50 19:39 WBC 7.2 RBC 3.45 L Hgb 10.9 L Hct 34.1 L MCV 98.8 H MCH 31.6 MCHC 32.0 RDW Std Deviation 51.3 H RDW Coeff of Jessica 14.3 Plt Count 280 MPV 9.8 Immature Gran % (Auto) 0.100 Neut % (Auto) 71.3 H Lymph % (Auto) 22.0 Hudson % (Auto) 5.5 Eos % (Auto) 0.7 Baso % (Auto) 0.4 Absolute Neuts (auto) 5.1 Absolute Lymphs (auto) 1.57 Nucleated RBC % 0 Sodium 137 Potassium 3.4 L Chloride 106 Carbon Dioxide 24.0 Anion Gap 7 BUN 18 Creatinine 1.20 Estim Creat Clear Calc 43.37 Est GFR (MDRD) Af Amer 74 Est GFR (MDRD) Non-Af 61 BUN/Creatinine Ratio 15.0 Glucose 198 H Calcium 8.4 L Total Bilirubin 0.70 Direct Bilirubin 0.21 AST 20 ALT 19 Alkaline Phosphatase 76 Troponin I High Sens 59 164 H* Total Protein 7.1 Albumin 3.3 Globulin 3.8 Lipase 38 Radiography Diagnostic Testing: Clinical Impression(s) from Imaging Studies Chest X-Ray 06/27/24 17:05 IMPRESSION: [id number]-right pleural effusions. Probable mild edema. Reading Location: [facility] Abdomen/Pelvis CT 06/27/24 18:51 IMPRESSION: Right hepatic lobe lesion with peripheral nodular flow favoring a hemangioma. Right kidney hyperdense nodule. Further characterization with renal protocol MRI or CT is recommended. Fat-containing left inguinal hernia without evidence of bowel obstruction. Enlarged prostate indenting the posterior wall of the urinary bladder. Correlate with PSA. Anasarca. Bilateral pleural effusions. One or more dose reduction techniques were used (e.g., Automated exposure control, adjustment of the mA and/or kV according to patient size, use of iterative reconstruction technique). Reading Location: [facility] EKG Initial EKG: Attestation: I personally reviewed and interpreted this EKG as follows: Comments: Sinus tachycardia ventricular rate of 112 bpm Management Discussion w/another healthcare provider: Hospitalist (Dr Murray) Discharge Plan Triage Chief Complaint: Chest Pain ED Provider: Cresencio Olsen Dx/Rx/DC Orders Primary Care Provider: Alok Branch
--- NOTE | 2024-06-27 18:51 | CT_ITS ---
PROCEDURE: ABDOMEN/PELVIS W IV CONT ONLY REASON FOR EXAM: Chest pain after eating; midsternal pressure. TECHNIQUE: Abdomen and pelvis CT with intravenous contrast. COMPARISON: None. FINDINGS: Lung bases: Moderate right and small left pleural effusions. Mild bibasilar atelectasis. Liver: Right hepatic lobe 2.5 cm hypodense lesion with peripheral nodular arterial flow favoring a hemangioma. Additional right hepatic lobe cyst. Gallbladder: Unremarkable. Spleen: Unremarkable. Pancreas: Unremarkable. Adrenals: Unremarkable. Kidneys: Right kidney exophytic cortical 1.7 cm hyperechoic lesion. Bladder: Unremarkable. Reproductive Organs: Enlarged prostate indenting the posterior wall of the urinary bladder. Bowel: Unremarkable. Appendix: Normal. Lymph nodes: No suspicious lymph node enlargement. Vasculature: Moderate to severe atherosclerosis Peritoneum / Retroperitoneum: No ascites. No free air. Bones: Degenerative changes of the spine. Left inguinal fat and bowel containing hernia. No evidence of bowel obstruction. Mild anasarca. CT/Abdomen/Pelvis W IV Cont ONLY IMPRESSION: Right hepatic lobe lesion with peripheral nodular flow favoring a hemangioma. Right kidney hyperdense nodule. Further characterization with renal protocol M RI or CT is recommended. Fat-containing left inguinal hernia without evidence of bowel obstruction. Enlarged prostate indenting the posterior wall of the urinary bladder. Correla te with PSA. Anasarca. Bilateral pleural effusions. One or more dose reduction techniques were used (e.g., Automated exposure contr ol, adjustment of the mA and/or kV according to patient size, use of iterative reconstruction technique). Reading Location: [id number]
[2024-06-27 19:19] LABS: AST(SGOT) 20 U/L (15-37); Alanine Aminotransfer ALT/SGPT 19 U/L (16-61); Albumin, Serum 3.3 g/dL (3.2-5.0); Alkaline Phosphatase 76 U/L (45-117); Bilirubin, Direct 0.21 mg/dL (0.00-0.30); Globulin 3.8 g/dL (2.2-4.2); Lipase 38 U/L (13-75); Protein, Total 7.1 g/dL (6.4-8.2)
[2024-06-27 19:25] LABS: Reflex Troponin-HS? (from REC) Y
[2024-06-27 20:17] LABS: Troponin-I HS 164 pg/mL (3.0-78.0)
--- NOTE | 2024-06-27 22:41 | HP.PCM.HOS_ITS ---
[facility] - General General Date of Admission: 06/27/24 Date of Service: 06/27/24 Chief Complaint: Chest Pain. HPI Narrative ABHISHEK BAILEY, is a 88 M with a past medical history of essential hypertension; on propranolol an furosemide, dyslipidemia; currently not on treatment, history of atrial fibrillation; on verapamil, history of radiofrequency ablation (2012), history of VTE; s/p IVC filter - not currently on anticoagulation due to previous GI bleed, history of CML; on Gleevec with chronic pericardial effusion followed by cardiology at [facility] by Drs. Beard and Ronni, history of Right kidney lesion previously evaluated at [facility], history of chronic diastolic CHF; with preserved LVEF and history of pleural effusion that was primarily attributed to Adverse Drug Reaction to nilotinib (Tasigna), history of pulmonary hypertension, history of mitral regurgitation, remote history of tobacco abuse (quit 1969), CKD; stage IIIa, DUNG, history of hypercalcemia, history of vitamin D deficiency, history of cholecystectomy (~2020), GERD; with history of PUD and partial gastrectomy on pantoprazole, history of appendectomy, history of inguinal hernia; s/p repair, history of allergic rhinitis and OA who presents to [facility] ER complaining of chest pain and SOB. Mr. Bailey reports his symptoms began approximately one hour prior to admission when he developed upper abdominal pain after eating chicken nuggets and mashed potatoes. He states his pain was divergent from his previous GERD symptoms and he also admits to increasing flatulence which is also new. He then developed chest pain that was focused in his lower chest and upper abdomen, nonradiationg, pressure-like, squeezing, moderate, ~6/10 during the walk from the waiting room to his ER room with his symptoms resolving spontaneously after a few minutes of rest. He states he is usually very active and has had no similar episodes perviously and he is a FULL CODE and wants aggressive care in spite of his advanced age and multiple comorbidities. He informed the ER physician his chronic pericardial effusion has been improving. He denies associated fever, chills, nausea, vomiting, diarrhea, constipation, bloody stools, black stools, dysuria, hematuria, cough or previously known history of CAD. In the ER he was noted to have an initial normal troponin of 59 pg/mL that rey to 164 pg/mL and then continued upward trend to 725 pg/mL on third check consistent with NSTEMI complicated by CT evidence of moderate Right and small Left pleural effusions c oncerning for superimposed mild AE of chronic diastolic CHF; with preserved LVEF compounded by incidentally noted ~1.7 cm hyperechoic exophytic cortical lesion of the Right kidney with MRI with renal protocol recommended with additional mention of anasarca and enlarged prostate compounded by laboratory evidence of mild Hypokalemia of 3.4 mmol/L present on admission and he was then admitted to the PCU for ongoing care for a stay that is expected to extend beyond 2 midnights. [facility] Medical History (Updated 06/28/24 @ 02:[address] Chris Murray, DO) CML (chronic myelocytic leukemia) Hiatal hernia Esophageal reflux Pulmonary hypertension Mitral regurgitation Presence of IVC filter Lung nodule Vitamin D deficiency Hypercalcemia Hypokalemia Pericardial effusion Peptic ulcer Iron deficiency anemia Depression Dyslipidemia Choledocholithiasis Allergic rhinitis Epigastric abdominal pain DVT of lower extremity (deep venous thrombosis) CKD (chronic kidney disease) stage 3, GFR 30-59 ml/min History of atrial fibrillation Pleural effusion Hx of peptic ulcer HTN (hypertension) Hx of venous thrombosis and embolism History of tobacco use Atrial fibrillation Home Medications ?Medication ?Instructions ?Recorded ?Last Taken ?Type cholecalciferol (vitamin D3) 25 25 mcg PO DAILY supple ment 06/10/19 11/17/23 History mcg (1,000 unit) tablet cyanocobalamin (vitamin B-12) 1,000 mcg IJ .Q2MO suppl ement 06/10/19 09/16/23 History 1,000 mcg/mL injection solution propranolol 10 mg tablet 10 mg PO DAILY PRN hypertens ion 06/10/19 11/17/23 History pantoprazole 20 mg tablet,delayed 20 mg PO DAILY indig estion 03/03/23 06/27/24 History release furosemide 20 mg tablet 20 mg PO Q OTHER DAY diureti c 07/10/23 11/17/23 History lorazepam 0.5 mg tablet 0.5 mg PO Q6H PRN nausea and 07/10/23 Unknown History vomiting imatinib 100 mg tablet (Gleevec) 200 mg PO DAILY 06/2706/27/24 History imatinib 400 mg tablet (Gleevec) 400 mg PO DAILY 06/2706/27/24 History verapamil 120 mg tablet,extended mg PO DAILY 06/27/24 06/26/24 History release Allergy/AdvReac Type Severity Reaction Status Date / Time paroxetine (From Paxil) Allergy Other Verified 06/27/24 17:03 nilotinib (From Tasigna) AdvReac Severe Pleural Verified 06/27/24 17:03 effusion/fluid retention Family History Father Hypertension Brother Colon cancer Sister CVA (cerebral vascular accident) Other Heart disease Surgical History Hx of inguinal hernia repair Hx of cholecystectomy (~2020) History of cardiac radiofrequency ablation (RFA) (~10/16/12) History of partial gastrectomy Hx of arthroscopy of knee History of appendectomy Social History Smoking Status: Former smoker how long ago did patient quit smokin alcohol intake: never substance use type: does not use caffeine: No ROS ROS Narrative Review of Systems: Constitutional: Patient denies fever or chills. Eyes: Patient denies changes in vision or discharge from eyes. ENT: Patient denies runny nose, sore throat or ear pain. Resp: Patient denies cough, SOB or orthopnea. CV: Patient admits to chest pain that was focused in the low chest and upper abdomen as per HPI. He denies heart racing, palpitations or diaphoresis. GI: Patient admits to upper abdominal pain that is diverse from his pervious GERD symptoms. He denies nausea, vomiting, diarrhea or constipation. : Patient denies dysuria, hematuria or urinary frequency. MSK: Patient denies arthralgias or myalgias. Skin: Patient denies rash, abscess, wound or jaundice. Psych: Patient denies symptoms of uncontrolled depression or anxiety. Neuro: Patient denies headache, paresthesias or focal neurologic deficits. Allergy: Patient denies lip swelling, tongue swelling or urticaria. Hematology: Patient denies easy bleeding or easy bruisability. Endocrinology: Patient denies polyuria, polydipsia or polyphagia. 14 point ROS otherwise negative except for positives noted above in HPI. Vital Signs Vital Signs Vital Signs: 06/27/24 17:03 06/27/24 18:02 06/27/24 18:20 Temperature 98.0 F Temperature Source Temporal Pulse Rate 114 H 120 H Respiratory Rate 16 12 Blood Pressure 181/79 H 177/84 H Blood Pressure Mean 113 115 Pulse Ox 98 100 100 Oxygen Delivery Method Room Air Room Air Room Air 06/27/24 19:00 06/27/24 20:00 06/27/24 21:00 Temperature Temperature Source Pulse Rate 115 H 104 H 101 H Respiratory Rate 22 H 18 15 Blood Pressure 160/67 H 167/75 H 152/73 H Blood Pressure Mean 98 105 99 Pulse Ox 99 99 99 Oxygen Delivery Method Room Air Room Air 06/27/24 22:00 Temperature Temperature Source Pulse Rate 99 Respiratory Rate 13 Blood Pressure 164/70 H Blood Pressure Mean 101 Pulse Ox 99 Oxygen Delivery Method Room Air Weight Weight: 166 lb 7.184 oz Body Mass Index (BMI) 24.5 Physical Exam Const alert, oriented x3, no apparent distress and average body habitus General Appearance: cooperative HEENT normocephalic, head/scalp atraumatic, hearing grossly normal bilaterally and moist oral mucous membranes Eyes PERRL, EOMs intact bilaterally and conjunctivae normal Neck no lymphadenopathy and supple Resp Resp Narrative: Diminished breath sounds at bases. Cardio regular rate and regular rhythm GI normal to inspection, nondistended, normoactive bowel sounds, soft to palpation, non-tender and non-distended Extremity normal to inspection, full ROM and no clubbing, cyanosis or edema Skin Skin Narrative: Patient has no evidence of rash, abscess, wound or jaundice. Neuro oriented x3, CN's II-XII intact bilaterally, moves all extremities and no focal motor deficits Sensorium / Orientation: awake, alert, oriented to person, oriented to place and oriented to time Speech: speech normal Psych affect normal Results Medical Records Data Attestation: I reviewed the patient's medical records Lab / Micro Data Attestation: I reviewed the patient's lab results. 06/27/24 17:20 06/27/24 17:20 Labs: Laboratory Results - last 24 hr 06/27/24 17:20: WBC 7.2, RBC 3.45 L, Hgb 10.9 L, Hct 34.1 L, MCV 98.8 H, MCH 31.6, MCHC 32.0, RDW Std Deviation 51.3 H, RDW Coeff of Jessica 14.3, Plt Count 280, MPV 9.8, Immature Gran % (Auto) 0.100, Neut % (Auto) 71.3 H, Lymph % (Auto) 22.0, [place] % (Auto) 5.5, Eos % (Auto) 0.7, Baso % (Auto) 0.4, Absolute Neuts (auto) 5.1, Absolute Lymphs (auto) 1.57, Nucleated RBC % 0, Sodium 137, P otassium 3.4 L, Chloride 106, Carbon Dioxide 24.0, Anion Gap 7, BUN 18, Creatinine 1.20, Estim Creat Clear Calc 43.37, Est GFR (MDRD) Af Amer 74, Est GFR (MDRD) Non-Af 61, BUN/Creatinine Ratio 15.0, Glucose 198 H, Calcium 8.4 L, Troponin I High Sens 59 06/27/24 17:50: Total Bilirubin 0.70, Direct Bilirubin 0.21, AST 20, ALT 19, Alkaline Phosphatase 76, Total Protein 7.1, Albumin 3.3, Globulin 3.8, Lipase 38 06/27/24 19:39: Troponin I High Sens 164 H* Imaging Radiology Impression Chest X-Ray 06/27/24 17:05 IMPRESSION: Utiq-amphita-obrl-right pleural effusions. Probable mild edema. Reading Location: [facility] Abdomen/Pelvis CT 06/27/24 18:51 IMPRESSION: Right hepatic lobe lesion with peripheral nodular flow favoring a hemangioma. Right kidney hyperdense nodule. Further characterization with renal protocol MRI or CT is recommended. Fat-containing left inguinal hernia without evidence of bowel obstruction. Enlarged prostate indenting the posterior wall of the urinary bladder. Correlate with PSA. Anasarca. Bilateral pleural effusions. One or more dose reduction techniques were used (e.g., Automated exposure control, adjustment of the mA and/or kV according to patient size, use of iterative reconstruction technique). Reading Location: [facility] Assessment & Plan Assessment/Plan (1) Non-STEMI (non-ST elevated myocardial infarction): (2) Pleural effusion due to CHF (congestive heart failure): (3) Acute diastolic heart failure: (4) CML (chronic myelocytic leukemia): (5) Kidney lesion, [place], right: (6) Hypokalemia: (7) Presence of IVC filter: PLAN: Plan 1. Initial normal troponin of 59 pg/mL that rey to 164 pg/mL with a third upward trending troponin of 725 pg/mL with corresponding chest pain consistent with NSTEMI - Admit to PCU. Start ECASA, statin and full IV heparin per cardiac protocol. Serialize troponin. Check echocardiogram to evaluate LVEF. Check Lipid Profile. Give SL NTG prn angina. Give acetaminophen prn for [id number] (level 1-5/10) pain or fever. Give morphine IV prn for severe (level 6-10/10) pain. Finally, we will consult [facility] to see this patient in the AM on-rounds for further recommendations regarding LHC this admission with help appreciated in advance. 2. Mild AE of chronic diastolic CHF; with preserved LVEF with corresponding CT evidence of moderate Right and small Left pleural effusions with elevated BNP of 111 pg/mL present on admission complicating #1 - Give furosemide 40 mg IV daily with supplemental KCl and magnesium. Check BNP and CXR daily to follow trend. 3. History of CML; on Gleevec with chronic pericardial effusion followed by cardiology at [facility] adding to the medical complexity of #1 & #2 - Noted. Echocardiogram pending in the AM with CT negative for mention of significant pericardial effusion at this time. Resume Gleevec as before. 4. Incidentally noted ~1.7 cm hyperechoic exophytic cortical lesion of the Right kidney with MRI with renal protocol recommended with additional mention of anasarca and enlarged prostate compounding #1 - #3 with patient aware he had a lesion but he was not sure of size or diagnosis - Check MRI of the kidneys with renal protocol to more clearly delineate lesion noted on CT. Check PSA as per radiologist's recommendations. 5. Hypokalemia of 3.4 mmol/L present on admission - Give supplemental KCl and then recheck level in the AM to ensure improvement. 6. History of VTE; s/p IVC filter - not currently on anticoagulation due to previous GI bleed - Noted. We will stop heparin IV if bleeding ensues. 7. GERD; with history of PUD and partial gastrectomy on pantoprazole - Continue PPI. 8. History of atrial fibrillation; on verapamil with subsequent radiofrequency ablation (2012) - Patient was in NSR at time of admission. 9. Essential Hypertension; on propranolol an furosemide - Resume propranolol and give furosemide IV for #2. 10. Dyslipidemia; currently not on treatment - Check Lipid Profile in light of #1. 11. History of pleural effusion - Noted. 12. History of pulmonary hypertension - Noted. 13. History of mitral regurgitation - Echocardiogram pending this admission to assess current severity. 14. Remote history of tobacco abuse (quit 1969) - Noted. 15. History of CKD; stage IIIa - Noted with serum creatinine of 1.2 mg/dL, BUN of 18 mg/dL and eGFR of 61 mL/min present on admission. 16. DUNG - Stable with hemoglobin of 10.9 g/dL and MCV of 98.8 fL present on admission. 17. History of hypercalcemia - Noted with serum calcium of 8.4 mg/dL present on admission. 18. History of vitamin D deficiency - Check vitamin D level. 19. History of cholecystectomy (~2020) - Noted. 20. History of appendectomy - Noted. 21. History of inguinal hernia; s/p repair - Noted. 22. History of allergic rhinitis - Stable. 23. OA - Give acetaminophen prn. 24. DVT prophylaxis - Patient already on IV heparin for #1. Total time: Approximately (but not less than) 75 minutes. Charges/Coding Visit Charges Inpatient E&M: 51442 Init Hosp L3
[2024-06-27] MEDS: Aspirin 325 MG Tablet PO (23:11)
[2024-06-28] VITALS (13 sets, daily range): BP systolic 126–168; BP diastolic 62–76; PULSE 69–98; RESP 15–18; TEMP 36.6–37.1; O2SAT 96–100; BMI 24.7
--- NOTE | 2024-06-28 00:02 | ECHOD_ITS ---
Reason For Study: CHF Procedure This was a 2D Doppler, Color Flow transthoracic echocardiogram. Exam performed portable in patient room. Left Ventricle Normal left ventricle. The estimated ejection fraction is 55-60 %. Atria The left atrium is severely enlarged. The right atrium is mildly enlarged. Mitral Valve There is moderate mitral annular calcification. Moderate (2+) mitral valve insufficiency. Tricuspid Valve Normal tricuspid valve. Aortic Valve Trisinus/trileaflet aortic valve. Pulmonic Valve The pulmonic valve is not well visualized. Great Vessels Normal aortic root. Pericardium/Pleural Moderate (1.0-2.0 cm) pericardial effusion. The diastolic compression of the right atrium and right ventricle are suggestive of cardiac tamponade. Moderate anterior pericardial effusion noted With early diastolic collapse of the RV and RA suggestive of early tamponade This is similar to previous echocardiogram in November 21, 2023. Large left pleural effusion. MMode/2D Measurements & Calculations LVIDd: 3.9 cm IVSd: 1.5 cm LAV(MOD-bp): 98.0 ml LVIDs: 2.2 cm LVPWd: 1.5 cm LAV(MOD-bp) Indexed: 51.4 ml/m2 FS: 43.9 % LAV(MOD-sp2): 60.4 ml LAV(MOD-sp4): 118.6 ml _ SV(MOD-sp4): 38.3 ml SV(sp4-el): 43.7 ml LVAd ap4: 24.9 cm2 LVLd ap4: 7.9 cm SI(MOD-sp4): 20.1 ml/m2 EDV(MOD-sp4): 64.9 ml EDV(sp4-el): 66.6 ml LVAs ap4: 13.6 cm2 LVLs ap4: 6.9 cm ESV(MOD-sp4): 26.6 ml ESV(sp4-el): 22.8 ml EF(MOD-sp4): 59.0 % EF(sp4-el): 65.7 % _ LA A4 area: 33.5 cm2 LA dimension(2D): 4.3 cm RA A4 area: 17.9 cm2 Time Measurements MV dec time: 0.13 sec Doppler Measurements & Calculations MV E max bulmaro: 85.6 cm/sec Lat Peak E' Bul[place]o: 9.1 cm/sec Med Peak E' Bul[place]o: 7.3 cm/sec MV A max bulmaro: 59.6 cm/sec E/E' lat: 9.4 E/E' med: 11.8 MV E/A: 1.4 _ MV V2 max: 72.0 cm/sec MV dec slope: 643.2 cm/sec2 Ao V2 max: 129.3 cm/sec MV max P.1 mmHg Ao max P.7 mmHg MV V2 mean: 59.2 cm/sec Ao V2 mean: 86.8 cm/sec MV mean P.5 mmHg Ao mean P.5 mmHg MV V2 VTI: 17.2 cm Ao V2 VTI: 26.6 cm AV (velocity ratio): 1.0 _ LV V1 max: 125.7 cm/sec PA V2 max: 91.3 cm/sec LV V1 max P.3 mmHg PA V2 mean: 67.8 cm/sec LV V1 mean P.7 mmHg LV V1 mean: 90.3 cm/sec LV V1 VTI: 27.4 cm ECHO/Echo Complete Interpretation Summary The estimated ejection fraction is 55-60 %. Mild apical hypokinesia Moderate anterior pericardial effusion noted With early diastolic collapse of the RV and RA suggestive of early tamponade This is similar to previous echocardiogram in November 21, 2023. Recommendations; Will transfer the patient to surgical team/CTS to evaluate for possible pericar dial window Ordering Physician: Chris Murray Referring Physician: Cresencio Olsen Performed By: Elaine Echevarria RCS
[2024-06-28 00:39] LABS: Troponin-I HS 725 pg/mL (3.0-78.0)
[2024-06-28] MEDS: Potassium Chloride Oral Tablet 20 MEQ 60 MEQ PO (00:44)
[2024-06-28] MEDS: Furosemide 40 MG/4 ML Vial IV ×2 (00:45→13:28)
[2024-06-28] MEDS: LORazepam 0.5 MG Tablet PO ×2 (01:44→21:08)
[2024-06-28 01:49] LABS: Partial Thromboplast Time 27.2 Seconds (24.1-36.2)
[2024-06-28] MEDS: HEPARIN/D5w 25,000 UNITS 25,000 UNITS/250 ML IV.SOLN. 9 UNITS CONT INF (01:57)
[2024-06-28 02:23] LABS: PSA,Total - Annual Screen 7.97 ng/mL (0.00-4.00)
--- NOTE | 2024-06-28 05:55 | RAD_ITS ---
PROCEDURE: CHEST 1 VIEW (PORTABLE) REASON FOR EXAM: CHF TECHNIQUE: AP portable view of the chest. COMPARISON: 06/27/2024 FINDINGS: Small pleural effusion on the left, relatively stable. Trace pleural effusion is seen on the right. Minimal atelectasis within the lung bases. Suspect calcified granuloma overlying the right lower lobe. Remaining lung markings otherwise appears clear. No pneumothorax is seen. Heart size and great vessels are stable. Slight curvature and spondylotic change involving the thoracic spine. EKG wires overlie the chest RAD/Chest 1 View (Portable) IMPRESSION: No significant interval change. Reading Location: [id number]
--- NOTE | 2024-06-28 05:55 | EKG12_ITS ---
Test Reason : Blood Pressure : */* mmHG Vent. Rate : 112 BPM Atrial Rate : 112 BPM P-R Int : 172 ms QRS Dur : 88 ms QT Int : 344 ms P-R-T Axes : 110 48 61 degrees QTcB Int : 469 ms Sinus tachycardia Low voltage QRS Borderline ECG Confirmed by SHASHANK SHELBY, KIMBERLY ([id number]), brands editor ANTONIA PIERRE ([id number]) on 07/01/2024 6:07:18 AM Referred By: Cresencio Olsen Confirmed By: KIMBERLY ENCARNACION MD
[2024-06-28 08:10] LABS: Absolute Lymphocyte Count 2.25 X10^3/uL (0.83-4.51); Basophil# 0.02 X10^3/uL; Basophil% 0.3 % (0-1); Eosinophil# 0.06 X10^3/uL; Hematocrit 30.8 % (40-54); Hemoglobin 10.4 g/dL (13.0-16.5); Lymphocyte # 2.25 X10^3/ul (0.83-4.51); Lymphocyte % 38.5 % (19-41); Mean Corp Hgb Conc 33.8 g/dL (32-36); Mean Corpuscular Hgb 31.5 pg (27.0-32.0); Mean Corpuscular Volume 93.3 fL (80-94); Mean Platelet Vol. 9.3 fl (6.2-12.0); Monocyte# 0.49 X10^3/uL; Monocyte% 8.4 % (0-10); NRBC Flagged by Analyzer 0 % (0-5); Neutrophil # 3.02 X10^3/uL (2.7-7.7); Neutrophil % 51.6 % (47-70); Platelet Count 293 K/mm3 (150-450); RBC Distribution Width CV 13.8 % (11.6-14.6); RBC Distribution Width SD 46.9 fl (35.1-43.9); White Blood Count 5.9 K/mm3 (4.4-11.0)
--- NOTE | 2024-06-28 08:39 | CON.PCM.CA_ITS ---
<Statement entered by Vera Alvarez MD - 06/28/24 12:26> Pt seen & evaluated w/DEREK. I personally interviewed & exam the pt. 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 Once stable patient can follow-up with the cardiology team at the [facility] and consideration for possible high risk PCI of the mid LAD which is a calcified vessel with possible atherectomy Versus lithotripsy this will be based on his clinical response to medical therapy which will also include long acting nitrate and possible Ranexa for antianginal medication. Assessment & Plan Assessment/Plan (1) Non-STEMI (non-ST elevated myocardial infarction): (2) Pericardial effusion: (3) Atrial fibrillation: QUALIFIERS: Atrial fibrillation type: unspecified Qualified Code(s): I48.91 - Unspecified atrial fibrillation HPI Consult Data Date of Consult: 06/28/24 HPI Narrative HPI Narrative: ABHISHEK BAILEY, is a 88 M who presented [facility] emergency room last evening with chest discomfort. He states the discomfort developed after he was eating his dinner. This was different than his typical reflux disease. It lasted approximately 30 to 40 minutes. He states that he has been having more frequent epigastric discomfort over the last 6 to 7 months. Lst EKG on admission demonstrated sinus tachycardia with a heart rate of 112. Initial troponin was 57, second troponin trended upwards to 164. Because of this he was admitted to PCU for further evaluation. Third troponin trended upwards to 725. Chest x-ray this morning did not demonstrate any significant pleural effusions. Abdominal CT yesterday had noted Anasarca and bilateral pleural effusions. He does have a history of chronic myeloid leukemia, atrial fibrillation post ablation, hypertension, DVT. He also has noted to have a pericardial effusion that is being monitored by [facility]. He was last seen in our office in 2022. His most recent echocardiogram was in October 2023. This demonstrated an ejection fraction of 60%. Left atrium severely enlarged, right atrium mildly enlarged, moderate mitral insufficiency. Moderate anterior pericardial effusion. Early diastolic collapse of the right ventricle and right atrium suggestive of early tamponade. When compared to earlier study there was no significant change. He had a large pleural effusion at that time. Patient does note that these have been followed by [facility] and they have been improving. [facility] Medical History (Updated 06/28/24 @ 02:[address] Chris Murray, DO) CML (chronic myelocytic leukemia) Hiatal hernia Esophageal reflux Pulmonary hypertension Mitral regurgitation Presence of IVC filter Lung nodule Vitamin D deficiency Hypercalcemia Hypokalemia Pericardial effusion Peptic ulcer Iron deficiency anemia Depression Dyslipidemia Choledocholithiasis Allergic rhinitis Epigastric abdominal pain DVT of lower extremity (deep venous thrombosis) CKD (chronic kidney disease) stage 3, GFR 30-59 ml/min History of atrial fibrillation Pleural effusion Hx of peptic ulcer HTN (hypertension) Hx of venous thrombosis and embolism History of tobacco use Atrial fibrillation Home Medications ?Medication ?Instructions ?Recorded ?Last Taken ?Type cholecalciferol (vitamin D3) 25 25 mcg PO DAILY supple ment 06/10/19 11/17/23 History mcg (1,000 unit) tablet cyanocobalamin (vitamin B-12) 1,000 mcg IJ .Q2MO suppl ement 06/10/19 09/16/23 History 1,000 mcg/mL injection solution propranolol 10 mg tablet 10 mg PO DAILY PRN hypertens ion 06/10/19 11/17/23 History pantoprazole 20 mg tablet,delayed 20 mg PO DAILY indig estion 03/03/23 06/27/24 History release furosemide 20 mg tablet 20 mg PO Q OTHER DAY diureti c 07/10/23 11/17/23 History lorazepam 0.5 mg tablet 0.5 mg PO Q6H PRN nausea and 07/10/23 Unknown History vomiting imatinib 100 mg tablet (Gleevec) 200 mg PO DAILY 06/2706/27/24 History imatinib 400 mg tablet (Gleevec) 400 mg PO DAILY 06/2706/27/24 History verapamil 120 mg tablet,extended mg PO DAILY 06/27/24 06/26/24 History release Allergy/AdvReac Type Severity Reaction Status Date / Time paroxetine (From Paxil) Allergy Other Verified 06/27/24 17:03 nilotinib (From Tasigna) AdvReac Severe Pleural Verified 06/27/24 17:03 effusion/fluid retention Family History Father Hypertension Brother Colon cancer Sister CVA (cerebral vascular accident) Other Heart disease Surgical History Hx of inguinal hernia repair Hx of cholecystectomy (~2020) History of cardiac radiofrequency ablation (RFA) (~10/16/12) History of partial gastrectomy Hx of arthroscopy of knee History of appendectomy Social History Smoking Status: Former smoker how long ago did patient quit smokin alcohol intake: never substance use type: does not use caffeine: No ROS Constitutional Constitutional: Denies change in weight, daytime sleepiness or difficulty sleeping Eyes Eyes: Denies loss of peripheral vision ENT HEENT: Denies bleeding gums, dizziness, headache(s) or hearing loss Cardiovascular Cardiovascular: Reports as per HPI Respiratory/Chest Respiratory/Chest: Reports as per HPI Gastrointestinal Gastrointestinal: Reports as per HPI Neurologic Neurologic: Denies abnormal gait, abnormal hearing or abnormal movements Physical Exam Const alert, oriented x3, no apparent distress and average body habitus HEENT normocephalic Head and Scalp: normal to inspection Face and Sinus: normal facial exam Nose: external nose normal General Ear: No hearing grossly impaired Eyes PERRL, EOMs intact bilaterally, conjunctivae normal and no scleral icterus Neck no JVD Resp normal respiratory effort, normal air movement and clear to auscultation bilaterally Cardio regular rate, S1 normal heart sound and S2 normal heart sound; Negative for no murmurs, no rub or no gallops Jugular Venous Distention: Negative for JVD GI normal to inspection, nondistended, normoactive bowel sounds and soft to palpation Extremity normal capillary refill Neuro oriented x3, CN's II-XII intact bilaterally and moves all extremities Risk Stratification Risk Stratification Applicable: Yes Age >/= 65: Yes >/= 3 CAD Risk Factors (HTN, HLD, DM, family hx of CAD, or current smoker): No Aspirin Use in the Past 7 Days: No Severe Angina (>/= episodes in 24 hours): Yes EKG ST Changes >/= 0.5mm: No Positive Cardiac Marker: Yes EUGENIA Risk Stratification Score: 3 EUGENIA % Risk: 13% Risk Charges/Coding Multi Select Codes Visit Charges Office Visit/Consults: 38962 IP Consult L3 Objective Data Vital Signs: Vital Signs Temp Pulse Resp BP Pulse Ox O2 Del Method 98.3 F 87 18 160/69 H 96 Room Air 06/28/24 06:35 06/28/24 06:35 06/28/24 06:35 06/28/24 06:35 06/28/24 06:35 06/28/24 08:23 Oxygen Delivery Method Room Air Weight: 157 lb 13.616 oz Body Mass Index (BMI) 24.7 Intake & Output: Intake and Output for Last 24 Hours 06/26/24 06/27/24 06/28/24 23:59 23:59 23:59 Output Total 2950 / 2950 Balance -2950 / -2950 Lab / Micro Data 06/28/24 07:57 06/28/24 07:57 Labs: Laboratory Results - last 24 hr 06/27/24 17:20: WBC 7.2, RBC 3.45 L, Hgb 10.9 L, Hct 34.1 L, MCV 98.8 H, MCH 31.6, MCHC 32.0, RDW Std Deviation 51.3 H, RDW Coeff of Jessica 14.3, Plt Count 280, MPV 9.8, Immature Gran % (Auto) 0.100, Neut % (Auto) 71.3 H, Lymph % (Auto) 22.0, [place] % (Auto) 5.5, Eos % (Auto) 0.7, Baso % (Auto) 0.4, Absolute Neuts (auto) 5.1, Absolute Lymphs (auto) 1.57, Nucleated RBC % 0, Sodium 137, P otassium 3.4 L, Chloride 106, Carbon Dioxide 24.0, Anion Gap 7, BUN 18, Creatinine 1.20, Estim Creat Clear Calc 43.37, Est GFR (MDRD) Af Amer 74, Est GFR (MDRD) Non-Af 61, BUN/Creatinine Ratio 15.0, Glucose 198 H, Calcium 8.4 L, Troponin I High Sens 59, B-Natriuretic Peptide 111.0 H 06/27/24 17:50: Total Bilirubin 0.70, Direct Bilirubin 0.21, AST 20, ALT 19, Alkaline Phosphatase 76, Total Protein 7.1, Albumin 3.3, Globulin 3.8, Lipase 38 06/27/24 19:39: Troponin I High Sens 164 H* 06/27/24 23:30: Troponin I High Sens 725 H* 06/28/24 01:30: APTT 27.2, PSA Screen 7.97 H 06/28/24 07:57: WBC 5.9, RBC 3.30 L, Hgb 10.4 L, Hct 30.8 L, MCV 93.3 D, MCH 31.5, MCHC 33.8 D, RDW Std Deviation 46.9 H, RDW Coeff of Jessica 13.8, Plt Count 293, MPV 9.3, Immature Gran % (Auto) 0.200, Neut % (Auto) 51.6, Lymph % (Auto) 38.5, [place] % (Auto) 8.4, Eos % (Auto) 1.0, Baso % (Auto) 0.3, Absolute Neuts (auto) 3.0, Absolute Lymphs (auto) 2.25, Nucleated RBC % 0 Cardiology Labs/Tests 06/27/24 17:20: WBC 7.2, RBC 3.45 L, Hgb 10.9 L, Hct 34.1 L, MCV 98.8 H, MCH 31.6, MCHC 32.0, Plt Count 280, MPV 9.8, Immature Gran % (Auto) 0.100, Neut % (Auto) 71.3 H, Lymph % (Auto) 22.0, [place] % (Auto) 5.5, Eos % (Auto) 0.7, Baso % (Auto) 0.4, Absolute Neuts (auto) 5.1, Nucleated RBC % 0, Sodium 137, Potassium 3.4 L, Chloride 106, Carbon Dioxide 24.0, Anion Gap 7, BUN 18, Creatinine 1.20, Est GFR (MDRD) Af Amer 74, Est GFR (MDRD) Non-Af 61, BUN/Creatinine Ratio 15.0, Glucose 198 H, Calcium 8.4 L, B-Natriuretic Peptide 111.0 H 06/27/24 17:50: Total Bilirubin 0.70, Direct Bilirubin 0.21 06/28/24 01:30: APTT 27.2 06/28/24 07:57: WBC 5.9, RBC 3.30 L, Hgb 10.4 L, Hct 30.8 L, MCV 93.3 D, MCH 31.5, MCHC 33.8 D, Plt Count 293, MPV 9.3, Immature Gran % (Auto) 0.200, Neut % (Auto) 51.6, Lymph % (Auto) 38.5, [place] % (Auto) 8.4, Eos % (Auto) 1.0, Baso % (Auto) 0.3, Absolute Neuts (auto) 3.0, Nucleated RBC % 0 Rhythm: ST with PVCs ECHO: Pending Radiography Diagnostic Testing: Radiology Impression Chest X-Ray 06/27/24 17:05 IMPRESSION: Xdol-pgqgwzc-cvii-right pleural effusions. Probable mild edema. Reading Location: [facility] Abdomen/Pelvis CT 06/27/24 18:51 IMPRESSION: Right hepatic lobe lesion with peripheral nodular flow favoring a hemangioma. Right kidney hyperdense nodule. Further characterization with renal protocol MRI or CT is recommended. Fat-containing left inguinal hernia without evidence of bowel obstruction. Enlarged prostate indenting the posterior wall of the urinary bladder. Correlate with PSA. Anasarca. Bilateral pleural effusions. One or more dose reduction techniques were used (e.g., Automated exposure control, adjustment of the mA and/or kV according to patient size, use of iterative reconstruction technique). Reading Location: [facility] Chest X-Ray 06/28/24 05:55 IMPRESSION: No significant interval change. Reading [facility]
[2024-06-28 08:47] LABS: ALB/GLOB Ratio 0.9 RATIO (0.9-2.4); AST(SGOT) 18 U/L (15-37); Alanine Aminotransfer ALT/SGPT 14 U/L (16-61); Albumin, Serum 2.8 g/dL (3.2-5.0); Alkaline Phosphatase 67 U/L (45-117); Anion Gap 6 (5-15); BUN 13 mg/dL (7-18); BUN/Creat Ratio 13.6 RATIO (10-20); Calcium,Total 8.1 mg/dL (8.5-10.1); Chloride 107 mmol/L (98-107); Cholesterol 125 mg/dL (200); Creatinine, Serum 0.95 mg/dL (0.70-1.30); EST Glomerular Filtration Rate 79 mL/min (>60); Est Glom Filt Rate - Afr Amer 96 mL/min (>60); Estimated Creatinine Clearance 51.22 ml/min; Globulin 3.2 g/dL (2.2-4.2); Glucose 108 mg/dL (74-106); High Density Lipoprotein 56 mg/dL; Magnesium 1.8 mg/dL (1.6-2.6); Phosphorus 2.3 mg/dL (2.5-4.9); Potassium 3.8 mmol/L (3.5-5.1); Sodium Level 139 mmol/L (136-145); Triglycerides 52 mg/dL; Very Low Density Lipoprotein 10 mg/dL (5-40)
--- NOTE | 2024-06-28 09:13 | PCM.PN.HOSP ---
Reason for Visit Reason for Visit: Diagnoses Chronic myeloid leukemia, BCR/ABL-positive, not having achieved remission (06/27/24) Hypokalemia (06/27/24) Non-ST elevation (NSTEMI) myocardial infarction (06/27/24) Acute diastolic (congestive) heart failure (06/27/24) Heart failure, unspecified (06/27/24) Disorder of kidney and ureter, unspecified (06/27/24) Other specified abnormal findings of blood chemistry (06/27/24) Presence of other vascular implants and grafts (06/27/24) Objective Data Objective Data Vital Signs: Vital Signs Temp Pulse Resp BP Pulse Ox O2 Del Method 98.3 F 87 18 160/69 H 96 Room Air 06/28/24 06:35 06/28/24 06:35 06/28/24 06:35 06/28/24 06:35 06/28/24 06:35 06/28/24 08:23 Oxygen Delivery Method Room Air Weight: 157 lb 13.616 oz Body Mass Index (BMI) 24.7 Intake & Output: Intake and Output for Last 24 Hours 06/26/24 06/27/24 06/28/24 23:59 23:59 23:59 Output Total 2950 / 2950 Balance -2950 / -2950 Lab / Micro Data 06/28/24 07:57 06/28/24 07:57 Labs: Laboratory Results - last 24 hr 06/27/24 17:20: WBC 7.2, RBC 3.45 L, Hgb 10.9 L, Hct 34.1 L, MCV 98.8 H, MCH 31.6, MCHC 32.0, RDW Std Deviation 51.3 H, RDW Coeff of Jessica 14.3, Plt Count 280, MPV 9.8, Immature Gran % (Auto) 0.100, Neut % (Auto) 71.3 H, Lymph % (Auto) 22.0, [place] % (Auto) 5.5, Eos % (Auto) 0.7, Baso % (Auto) 0.4, Absolute Neuts (auto) 5.1, Absolute Lymphs (auto) 1.57, Nucleated RBC % 0, Sodium 137, Potassium 3.4 L, Chloride 106, Carbon Dioxide 24.0, Anion Gap 7, BUN 18, Creatinine 1.20, Estim Creat Clear Calc 43.37, Est GFR (MDRD) Af Amer 74, Est GFR (MDRD) Non-Af 61, BUN/Creatinine Ratio 15.0, Glucose 198 H, Calcium 8.4 L, Troponin I High Sens 59, B-Natriuretic Peptide 111.0 H 06/27/24 17:50: Total Bilirubin 0.70, Direct Bilirubin 0.21, AST 20, ALT 19, Alkaline Phosphatase 76, Total Protein 7.1, Albumin 3.3, Globulin 3.8, Lipase 38 06/27/24 19:39: Troponin I High Sens 164 H* 06/27/24 23:30: Troponin I High Sens 725 H* 06/28/24 01:30: APTT 27.2, PSA Screen 7.97 H 06/28/24 07:57: WBC 5.9, RBC 3.30 L, Hgb 10.4 L, Hct 30.8 L, MCV 93.3 D, MCH 31.5, MCHC 33.8 D, RDW Std Deviation 46.9 H, RDW Coeff of Jessica 13.8, Plt Count 293, MPV 9.3, Immature Gran % (Auto) 0.200, Neut % (Auto) 51.6, Lymph % (Auto) 38.5, [place] % (Auto) 8.4, Eos % (Auto) 1.0, Baso % (Auto) 0.3, Absolute Neuts (auto) 3.0, Absolute Lymphs (auto) 2.25, Nucleated RBC % 0, APTT 37.0 H, Sodium 139, Potassium 3.8, Chloride 107, Carbon Dioxide 26.0, Anion Gap 6, BUN 13, Creatinine 0.95, Estim Creat Clear Calc 51.22, Est GFR (MDRD) Af Amer 96, Est GFR (MDRD) Non-Af 79, BUN/Creatinine Ratio 13.6, Glucose 108 H, Calcium 8.1 L, Phosphorus 2.3 L, Magnesium 1.8, Total Bilirubin 0.80, AST 18, ALT 14 L, Alkaline Phosphatase 67, Total Protein 6.0 L, Albumin 2.8 L, Globulin 3.2, Albumin/Globulin Ratio 0.9, Triglycerides 52, Cholesterol 125, LDL Cholesterol 59, VLDL Cholesterol 10, HDL Cholesterol 56, TSH 2.630 Radiography Diagnostic Testing: Radiology Impression Chest X-Ray 06/27/24 17:05 IMPRESSION: Naeo-oxhldkr-abdx-right pleural effusions. Probable mild edema. Reading Location: [facility] Abdomen/Pelvis CT 06/27/24 18:51 IMPRESSION: Right hepatic lobe lesion with peripheral nodular flow favoring a hemangioma. Right kidney hyperdense nodule. Further characterization with renal protocol MRI or CT is recommended. Fat-containing left inguinal hernia without evidence of bowel obstruction. Enlarged prostate indenting the posterior wall of the urinary bladder. Correlate with PSA. Anasarca. Bilateral pleural effusions. One or more dose reduction techniques were used (e.g., Automated exposure control, adjustment of the mA and/or kV according to patient size, use of iterative reconstruction technique). Reading Location: [facility] Chest X-Ray 06/28/24 05:55 IMPRESSION: No significant interval change. Reading Location: [facility] Assessment & Plan Assessment/Plan (1) Non-STEMI (non-ST elevated myocardial infarction): (2) Pleural effusion due to CHF (congestive heart failure): (3) Acute diastolic heart failure: (4) CML (chronic myelocytic leukemia): (5) Kidney lesion, [place], right: (6) Hypokalemia: (7) Presence of IVC filter: PLAN: Plan This 88-year-old gentleman was admitted with chest pain after eating dinner felt like slight pressure in midsternal area/upper abdominal area. History of peptic ulcer and CML. History of heart failure and pericardial effusion. 1. Non-STEMI: Patient is being admitted in PCU. Twelve-lead EKG shows sinus tachycardia 112 bpm. Patient also had an echo in December 2023 which was reported LV normal in size, moderate concentric LVH, systolic function EF 59%. RV normal in size. Small circumferential pericardial effusion and pleural effusion. Patient had chest x-ray which shows right greater than left pleural effusion, not enough for thoracocentesis, confirmed on CT abdomen. Troponins are high. Pot Maker consulted. Cardiac cath was done which shows heavily calcified, LM/left coronary system involving the entire LAD and left circumflex. LM 30 to 40% mid. Mid LAD heavily calcified 75% and subtotal 99% in diagonal.. Proximal left circumflex 60%. RCA dominant 60 to 70%. Therefore, multi vessel severe heavily calcified CAD. Patient does not have chest pain therefore hemodynamically stable. If he gets unstable, and does not respond to medical therapy, consideration for PCI of mid LAD which will require possible arthrectomy. On medical management with dual antiplatelet agent, aspirin and Plavix. Statin and low-dose beta-bayron. 2. Mild AE of chronic diastolic CHF; with preserved LVEF with corresponding CT evidence of moderate Right and small Left pleural effusions with elevated BNP of 111 pg/mL present on admission: Continue furosemide 40 mg IV daily with supplemental KCl and magnesium. Repeat chest x-ray shows similar. 06/10: Hold Lasix 3. History of CML; on Gleevec with chronic pericardial effusion followed by cardiology at [facility] Echocardiogram pending in the AM with CT negative for mention of significant pericardial effusion at this time. Resume Gleevec as before. 4. Incidentally noted ~1.7 cm hyperechoic exophytic cortical lesion of the Right kidney with MRI with renal protocol recommended with additional mention of anasarca and enlarged prostate compounding #1 - #3 with patient aware he had a lesion but he was not sure of size or diagnosis - Check MRI of the kidneys with renal protocol to more clearly delineate lesion noted on CT. Check PSA as per radiologist's recommendations. 5. Hypokalemia of 3.4 mmol/L present on admission -IV KCl was given 06/28: Hypophosphatemia: Neutra-Phos ordered 6. History of VTE; s/p IVC filter - not currently on anticoagulation due to previous GI bleed - Noted. We will stop heparin IV if bleeding ensues. 7. GERD; with history of PUD and partial gastrectomy on pantoprazole - Continue PPI. 8. History of atrial fibrillation; on verapamil with subsequent radiofrequency ablation (2012), Mild MR, essential hypertension and dyslipidemia- Patient was in NSR at time of admission. Quit smoking in 2017. Repeat echo is ordered 9. Chronic pulmonary hypertension, 10 CKD; stage IIIa - Noted with serum creatinine of 1.2 mg/dL, BUN of 18 mg/dL and eGFR of 61 mL/min present on admission. 11 DUNG - Stable with hemoglobin of 10.9 g/dL and MCV of 98.8 fL present on admission. DVT prophylaxis -on IV heparin drip Charges/Coding Visit Charges Inpatient E&M: 29226 Subs Hosp L3
--- NOTE | 2024-06-28 10:44 | CASEMGMT ---
RN CM NOTE: RN CM to room to complete initial RN CM assessment. Pt is out of room at this time. Sage BSN RN CM
--- NOTE | 2024-06-28 12:12 | PCM.OPRPT ---
Operative Report (Standard) Operative Information Date of Procedure: 06/28/24
--- NOTE | 2024-06-28 12:13 | PCIREPORT_ITS ---
PCI Cardiac Cath Report PCI Report: Left heart catheterization 1. Moderate sedation 2. Access from the right radial artery 3. Selective left coronary angiography 4. Selective right coronary angiography 5. Measurement of LVEDP and pullback pressure 6. Placement of TR band to close the right radial artery arteriotomy site. Preprocedure diagnosis; 88-year-old patient with multiple medical comorbidities Patient has diagnosis of chronic myelocytic leukemia/CML Has IVC filter History of previous atrial fibrillation with A-fib ablation And was on Coumadin could not tolerate very well history of CKD With GFR in the range of 30-59 mL/min on recent echocardiogram had a small pericardial effusion with normal systolic function Presentation patient has non-ST elevation IN. With elevated high sensitive troponin I Based on presentation and non-ST elevation IN with multiple medical comorbidities Underwent cardiac catheterization today Consent: Risk and benefit the procedure explained in detail patient like to proceed informed consent obtained. Access; 6 [place] sheath placed in the right radial artery Diagnostic catheter used use; 5 [place] catheter. Procedure in detail; Patient brought to the [employer] in fasting state Right radial artery area prepped and draped in the usual sterile fashion Under fluoroscopic guidance we proceeded with 5 [place] catheter advanced sending Pablo cannulated the left main multiple views of the left [place] obtained Following this, the same catheter was used to engage the RCA. As well the same catheter was used for measurement of LVEDP and pullback pressure Hemodynamics LVEDP measured around 40 mmHg which is normal 2. Pullback within normal with no evidence of gradient across aortic valve. Coronary angiography; 1. Heavily calcified, LM/left coronary system involving the left main with extension of calcification to the entire LAD and the left circumflex. Left main coronary artery has nonobstructive around 30-40% mid left main The left main bifurcates into LAD and left circumflex. 2. Left anterior descending artery is heavily calcified from the proximal mid to distal left anterior descending artery The mid LAD is heavily calcified with 75% mid LAD stenosis at the site of a large septal branch the first septal branch and subtotal around 99% in the very diagonal also has a lesion of around segmental lesions of around 70%. 3. The proximal left circumflex had 60% stenosis The Pharis OM1 is moderate to large size proximally had 60 to 70% stenosis OM 2 had ostial lesion in proximal lesion from 80% The circumflex is a large vessel 4. Right coronary artery is dominant proximal his RCA has 60 to 70% stenosis. There is a large vessel bifurcating into posterolateral and RPDA. Conclusion and recommendation 88-year-old patient with known history elevation IN Stable clinically does not have any active chest pain Patient has severe heavily calcified coronary arteries with multivessel CAD. If he remains unstable and does not respond to medical therapy consideration for PCI of the mid LAD which will require involves possible atherectomy Possible shockwaves/lithotripsy due to heavily calcified LAD I discussed in detail the finding of cardiac catheterization with the patient as well as with the This patient has severe multivessel CAD heavily calcified multiple medical comorbidities history of previous bleed on anticoagulation CKD chronic myeloid leukemia His LV function is preserved and he had heavily calcified coronary arteries I decided to treat the patient with medical therapy in the form of dual antiplatelet with Plavix and aspirin. Statin and a low-dose beta-bayron. And patient will follow-up with heart team here at [facility]. No complication in the [employer] Vera Alvarez MD,FACC,[facility] radiology director
--- NOTE | 2024-06-28 13:10 | CASEMGMT ---
RN ELENA gas appliance servicer helper CM to room to meet with patient for initial transition planning/care coordination assessment. RN ELENA introduced self and role at [facility], pt voices understanding. Pt is A&O and is resting in bed. Care providers, pharmacy, and demographics verified. Strata: 2 PCP: Dr Alok Branch Specialists: Dr Persaud (Onc), Dr Mcadams & Dr Humphrey (gen surgery @ [facility]), Dr. Dill (Cardio @ [facility]), Dr Hull, caustic plant worker Preferred Pharmacy: [facility] [place] @ [place] Insurance: [employer] [facility] Prescription Benefit: Yes LNOK: Cindy Patel (W), Marley Rowe (Dary) Living Arrangements: Pt lives with his in a 2 story home with 5 steps to enter. Pt states he does use both levels and denies having difficulty on the stairs. He states there is a bathroom on 1st and 2nd floor. Independent w/ADL's. Pt and share home mgnt tasks. Transportation: Self, DME: Pt has a Cane, BP Cuff, Pulse Ox., Shower chair, grab bars. Pt denies having other DME needs. HHC/SNF: Denies history or needs. No needs identified. Denies need for OP therapy. Pt wishes to return home and states has no concerns with going home at time of discharge. Plan: Home [facility] RN, CM
[2024-06-28] MEDS: Magnesium Chloride 64 MG Delay Rel.Tablet 128 MG PO (13:27)
[2024-06-28] MEDS: Metoprolol Tartrate 25 MG Tablet PO ×2 (13:27→21:09)
[2024-06-28] MEDS: Pantoprazole Sodium 20 MG Tablet PO (13:27)
[2024-06-28] MEDS: Cholecalciferol (VIT D3) 25 MCG TABLET (1,000 UNITS) PO (13:27)
[2024-06-28] MEDS: Verapamil SR 240 MG Tablet 120 MG PO (13:27)
[2024-06-28] MEDS: Aspirin E.C. 81 MG Tablet PO (14:31)
--- NOTE | 2024-06-28 18:12 | NURSING ---
This nurse spoke with Pt and pt's spouse and notified of Antonio's orders to transfer to [facility] and available bed. Pt stated No I am not going to [place], I will stay tonight here but I am going home tomorrow. Dr. Jones and Dr. Dill are aware of my heart and the fluid and said it was improving. Dr. Alvarez and Dr. Dexter aware of pt's refusal.
--- NOTE | 2024-06-28 19:31 | NURSING ---
REPORT GIVEN TO BRANDI AT [facility] WITH ALL QUESTIONS ANSWERED
[2024-06-28 20:25] LABS: Partial Thromboplast Time 42.4 Seconds (24.1-36.2)
[2024-06-28] MEDS: Atorvastatin Calcium 20 MG Tablet PO (21:09)
[2024-06-28] MEDS: Na Biphos/Potassium Phosphate PACKET 1 PACKET PO (21:09)
--- NOTE | 2024-06-29 08:44 | DS.PCM_ITS ---
Providers Date of Admission: 06/27/24 Date of Discharge: 06/28/24 Primary Care Physician: Dr. Alok Branch MD Consultations 06/28/24 00:02 Consult: Cardiology Routine Consulting Provider: [facility] Reason for Consult: Elevated troponin and AE of Chronic Diastolic CHF; with preserved LVEF. EMERGENT Consult: No MD Notified: Yes Date Notified: 06/28/24 Time Notified: 07:07 Method of Notification: Text Reason For Visit: NSTEMI, AE CHF, HISTORY OF CML, WITH CHRONIC Diagnosis Discharge Diagnosis (1) Non-STEMI (non-ST elevated myocardial infarction): Status: Acute Code(s): I21.4 - Non-ST elevation (NSTEMI) myocardial infarction (2) Pleural effusion due to CHF (congestive heart failure): Status: Acute Code(s): I50.9 - Heart failure, unspecified (3) Acute diastolic heart failure: Status: Acute Code(s): I50.31 - Acute diastolic (congestive) heart failure (4) CML (chronic myelocytic leukemia): Status: Chronic Code(s): C92.10 - Chronic myeloid leukemia, BCR/ABL-positive, not having achieved remission (5) Kidney lesion, [place], right: Status: Acute Code(s): N28.9 - Disorder of kidney and ureter, unspecified (6) Hypokalemia: Status: Acute Code(s): E87.6 - Hypokalemia (7) Presence of IVC filter: Status: Acute Code(s): Z95.828 - Presence of other vascular implants and grafts Plan This 88-year-old gentleman was admitted with chest pain after eating dinner felt like slight pressure in midsternal area/upper abdominal area. History of peptic ulcer and CML. History of heart failure and pericardial effusion. 1. Non-STEMI: Patient is being admitted in PCU. Twelve-lead EKG shows sinus tachycardia 112 bpm. Patient also had an echo in December 2023 which was reported LV normal in size, moderate concentric LVH, systolic function EF 59%. RV normal in size. Small circumferential pericardial effusion and pleural effusion. Patient had chest x-ray which shows right greater than left pleural effusion, not enough for thoracocentesis, confirmed on CT abdomen. Troponins are high. Specialty Person consulted. Cardiac cath was done which shows heavily calcified, LM/left coronary system involving the entire LAD and left circumflex. LM 30 to 40% mid. Mid LAD heavily calcified 75% and subtotal 99% in diagonal.. Proximal left circumflex 60%. RCA dominant 60 to 70%. Therefore, multi vessel severe heavily calcified CAD. Patient does not have chest pain therefore hemodynamically stable. If he gets unstable, and does not respond to medical therapy, consideration for PCI of mid LAD which will require possible arthrectomy. On medical management with dual antiplatelet agent, aspirin and Plavix. Statin and low-dose beta-bayron. 06/28: Specialty Person recommended transfer to [facility] And they arranged for transfer. Initially patient did not want to go there and wanted to be discharged but later changed mind and went for further treatment including high risk PCI. 2. Mild AE of chronic diastolic CHF; with preserved LVEF with corresponding CT evidence of moderate Right and small Left pleural effusions with elevated BNP of 111 pg/mL present on admission: Continue furosemide 40 mg IV daily with supplemental KCl and magnesium. Repeat chest x-ray shows similar. 06/10: Hold Lasix 3. History of CML; on Gleevec with chronic pericardial effusion followed by cardiology at [facility] Echocardiogram pending in the AM with CT negative for mention of significant pericardial effusion at this time. Resume Gleevec as before. 4. Incidentally noted ~1.7 cm hyperechoic exophytic cortical lesion of the Right kidney with MRI with renal protocol recommended with additional mention of anasarca and enlarged prostate compounding #1 - #3 with patient aware he had a lesion but he was not sure of size or diagnosis - Check MRI of the kidneys with renal protocol to more clearly delineate lesion noted on CT. Check PSA as per radiologist's recommendations. 5. Hypokalemia of 3.4 mmol/L present on admission -IV KCl was given 06/28: Hypophosphatemia: Neutra-Phos ordered 6. History of VTE; s/p IVC filter - not currently on anticoagulation due to previous GI bleed - Noted. We will stop heparin IV if bleeding ensues. 7. GERD; with history of PUD and partial gastrectomy on pantoprazole - Continue PPI. 8. History of atrial fibrillation; on verapamil with subsequent radiofrequency ablation (2012), Mild MR, essential hypertension and dyslipidemia- Patient was in NSR at time of admission. Quit smoking in 2016. Repeat echo is ordered 9. Chronic pulmonary hypertension, 10 CKD; stage IIIa - Noted with serum creatinine of 1.2 mg/dL, BUN of 18 mg/dL and eGFR of 61 mL/min present on admission. 11 DUNG - Stable with hemoglobin of 10.9 g/dL and MCV of 98.8 fL present on admission. DVT prophylaxis -on IV heparin drip Medications at Discharge Home Medications cholecalciferol (vitamin D3) 25 mcg (1,000 unit) tablet 25 mcg PO DAILY supplement 06/10/19 cyanocobalamin (vitamin B-12) 1,000 mcg/mL injection solution 1,000 mcg IJ .Q2MO supplement 06/10/19 propranolol 10 mg tablet 10 mg PO DAILY PRN hypertension 06/10/19 pantoprazole 20 mg tablet,delayed release 20 mg PO DAILY indigestion 03/03/23 furosemide 20 mg tablet 20 mg PO Q OTHER DAY diuretic 07/10/23 lorazepam 0.5 mg tablet 0.5 mg PO Q6H PRN nausea and vomiting 07/10/23 imatinib 100 mg tablet (Gleevec) 200 mg PO DAILY 06/27/24 imatinib 400 mg tablet (Gleevec) 400 mg PO DAILY 06/27/24 verapamil 120 mg tablet,extended release mg PO DAILY 06/27/24 Physical Exam Narrative Patient was seen and examined on 06/28. Please see the progress note Weight / BMI Weight Weight: 157 lb 13.616 oz Body Mass Index (BMI) 24.7 ABG / Lab / Microbiology Data 06/28/24 07:57 06/28/24 07:57 Laboratory: Laboratory Results - last 24 hr 06/28/24 07:57: APTT 37.0 H, Sodium 139, Potassium 3.8, Chloride 107, Carbon Dioxide 26.0, Anion Gap 6, BUN 13, Creatinine 0.95, Estim Creat Clear Calc 51.22, Est GFR (MDRD) Af Amer 96, Est GFR (MDRD) Non-Af 79, BUN/Creatinine Ratio 13.6, Glucose 108 H, Calcium 8.1 L, Phosphorus 2.3 L, Magnesium 1.8, Total Bilirubin 0.80, AST 18, ALT 14 L, Alkaline Phosphatase 67, Total Protein 6.0 L, Albumin 2.8 L, Globulin 3.2, Albumin/Globulin Ratio 0.9, Triglycerides 52, Cholesterol 125, LDL Cholesterol 59, VLDL Cholesterol 10, HDL Cholesterol 56, TSH 2.630 06/28/24 20:05: APTT 42.4 H Radiography Diagnostic Testing: Radiology Impression Echocardiogram 06/28/24 00:02 Interpretation Summary The estimated ejection fraction is 55-60 %. Mild apical hypokinesia Moderate anterior pericardial effusion noted With early diastolic collapse of the RV and RA suggestive of early tamponade This is similar to previous echocardiogram in November 21, 2023. Recommendations; Will transfer the patient to surgical team/CTS to evaluate for possible pericardial window Ordering Physician: Chris Murray Referring Physician: Cresencio Olsen Performed By: Elaine Echevarria RCS D/C Instructions DC O2, CPAP, BIPAP Needs Home O2 Discharge instructions: No Meaningful Use Info Meaningful Use Meaningful Use Diagnoses (Choose all that apply): None applicable Ischemic Stroke Statin Dosing Therapy Reference: STATIN DOSE THERAPY REFERENCE: * Patients > 75 years receive moderate or high dose statin therapy. * Patients 75 years or YOUNGER should receive HIGH intensity statin dose unless contraindicated. You will be required to document reason for non-treatment if statin daily dose does not meet guidelines. HIGH DOSE STATIN THERAPY DAILY Atorvastatin > than or = to 40 mg Rosuvastatin > than or = to 20 mg Amlodipine + Atorvastatin > than or = to 2.5/40 mg Ezetimibe + Simvastatin 10/80 mg Simvastatin 80mg Discharge Plan Admission Admit Date/Time: 06/27/24 23:32 Attending Provider: Gigi Dexter Primary Care Provider: Alok Branch Consulting Providers: Chris Murray; Wendy Velazquez; Leida Galindo; Alejandrina Keene; Brandan Bales; Garth Mcclelland; Vera Alvarez; Cali Swain; Lobito Rivera; Sammy Medina; Pranav Gaxiola; Hugo Pimentel NP; Lauryn Dodd; Darryl Marroquin Discharge Orders/Prescriptions Prescriptions: No Action furosemide 20 mg tablet 20 mg PO Q OTHER DAY Patient Comments: Take 1 tablet by mouth every other day. lorazepam 0.5 mg tablet 0.5 mg PO Q6H PRN (Reason: nausea and vomiting) propranolol 10 MG tablet 10 mg PO DAILY PRN (Reason: hypertension) cyanocobalamin (vitamin B-12) 1,000 MCG/ML solution 1,000 mcg IJ .Q2MO cholecalciferol (vitamin D3) 25 MCG tablet 25 mcg PO DAILY pantoprazole 20 mg tablet,delayed release (DR/EC) 20 mg PO DAILY Patient Comments: TAKE 1 TABLET BY MOUTH EVERY DAY before BREAKFAST. Take ONE-HALF hour before BREAKFAST. verapamil 120 mg tablet extended release PO DAILY imatinib [Gleevec] 100 mg tablet 200 mg PO DAILY imatinib [Gleevec] 400 mg tablet 400 mg PO DAILY Other Ambulatory Orders: 14 Day Event Recorder Preventi (Routine) Timeframe: 1 Day Facility: [facility] - Location: Cardiovascular Services Ordered By: Lauryn ARORA Referrals / Follow Up: Alok Branch MD [Primary Care Provider] - Disposition Disposition (needs filled in before D/C Order can be placed): Acute Care Hospital Charges/Coding Visit Charges Inpatient E&M: 49870 Disch Hosp >30min
[2024-06-29 09:34] LABS: BNP,B-Type NATRIURETIC PEPTIDE 326.9 pg/mL (0-100)
[2024-07-01 13:07] LABS: Vitamin D 1,25-Dihydroxy 56.2 pg/mL (24.8-81.5)
== END 2024-06-28 23:22 | disposition short-term general hospital (02) | DRG 280 ==
LOC: ED 22:42 → PCU 23:48
PROVIDERS: Admitting Provider Internal Medicine; Emergency Provider Emergency Medicine; PCP Family Medicine; Referring Provider Emergency Medicine; Visit Provider Internal Medicine
DX: I21.4 Non-ST elevation (NSTEMI) myocardial infarction (principal); I50.31 Acute diastolic (congestive) heart failure; I31.39 Other pericardial effusion (noninflammatory); C92.10 Chronic myeloid leukemia, BCR/ABL-positive, not having achieved remission; I13.0 Hypertensive heart and chronic kidney disease with heart failure and stage 1 through stage 4 chronic kidney disease, or unspecified chronic kidney disease; J90 Pleural effusion, not elsewhere classified; N18.31 Chronic kidney disease, stage 3a; D50.9 Iron deficiency anemia, unspecified; I27.20 Pulmonary hypertension, unspecified; I34.0 Nonrheumatic mitral (valve) insufficiency; Z95.828 Presence of other vascular implants and grafts; I48.91 Unspecified atrial fibrillation; E78.5 Hyperlipidemia, unspecified; K21.9 Gastro-esophageal reflux disease without esophagitis; E87.6 Hypokalemia; I25.10 Atherosclerotic heart disease of native coronary artery without angina pectoris; I25.2 Old myocardial infarction; Z87.891 Personal history of nicotine dependence; Z82.3 Family history of stroke; Z80.0 Family history of malignant neoplasm of digestive organs; Z86.718 Personal history of other venous thrombosis and embolism
CPT/HCPCS: 36415; 71045; 74177; 80048; 80053; 80061; 80076; 82652; 83690; 83735; 83880; 84100; 84153; 84443; 84484; 85025; 85730; 93005; 93306; 93454; 99152; 99153; 99285; Q9967; A4216; C1769; C1894; G0103; J1940